=== PATIENT | female | born 1935 | race African-American/Black ===

== ENCOUNTER 2017-04-05 17:07 | Inpatient (IN) ==
[2017-04-05] MEDS ORDERED: Ipratropium/Albuterol Neb 3 ML IH ONE (17:11)
[2017-04-05 17:28] LABS: Basophils % 0.7 %; Eosinophils # 0.3 K/mcL (0.0-0.6); Eosinophils % 5.4 %; Hematocrit 45.3 % (35.3-44.9); Hemoglobin 15.1 g/dL (11.5-15.4); Immature Granulocytes % 0.2 % (0-4); Lymphocytes % 32.6 %; Mean Corpuscular HGB Conc 33.3 g/dL (31.6-35.5); Mean Corpuscular Hemoglobin 31.2 pg (28.0-33.3); Mean Corpuscular Volume 93.6 fL (83.0-100.0); Mean Platelet Volume 9.4 fL (9.4-12.4); Monocytes # 0.5 K/mcL (0.0-1.3); Neutrophils # 3.3 K/mcL (1.6-8.9); Platelet Count 239 K/mcL (140-400); Red Blood Count 4.84 M/mcL (3.82-4.97); Red Cell Distribution Width 13.2 % (11.5-14.5); Segmented Neutrophils % 53.1 %
[2017-04-05 17:33] LABS: INR 1.1; Prothrombin Time 12.3 Seconds (9.4-12.1)
[2017-04-05 17:35] LABS: Activated Partial Thrombo Time 36.3 Seconds (26.0-36.0)
--- NOTE | 2017-04-05 17:37 | Emergency Department Note ---
Disposition Clinical Impression: Acute exacerbation of chronic obstructive airways disease Disposition: Admitted As Inpatient Condition: Fair Time of Disposition: 18:46 SOB HPI - General Chief Complaint: ED Shortness of Breath/Dyspnea Stated Complaint: SOB Time Seen by Provider: 04/05/17 17:10 Source: patient, EMS Limitations: no limitations Nursing Notes Reviewed: Yes Vital Signs Reviewed: Yes - History of Present Illness Mrs. Angulo, a 81-year-old female, presents from home via EMS for evaluation of dyspnea. Onset last night and progressive. Patient has a history of COPD with home albuterol nebulizer; no supplemental oxygen at home. She denies any other associated symptoms. PMH: Hypertension, hyperlipidemia, GERD, chronic pain, CAD with ACS status post DE with stent, CKD ROS: Positive: As above Negative: Fever, chills, nausea, vomiting, chest pain, palpitations, abdominal pain, unusual swelling in her extremities - Related Data Home Medications Medication Instructions Recorded Confirmed ALPRAZolam [Xanax 0.5 MG Tablet] 0.5 mg PO BID PRN 10/15/15 10/15/15 Atorvastatin [Lipitor] 40 mg PO HS 10/15/15 10/15/15 Carvedilol [Coreg] 12.5 mg PO BID 10/15/15 10/15/15 Cholecalciferol (D-3) [Vitamin D] 1,000 unit PO BID 10/15/15 10/15/15 Clopidogrel [Plavix] 75 mg PO DAILY 10/15/15 10/15/15 Escitalopram [Lexapro] 10 mg PO DAILY 10/15/15 10/15/15 Furosemide [Lasix] 20 mg PO DAILY 10/15/15 10/15/15 Gabapentin [Neurontin] 300 mg PO BID 10/15/15 10/15/15 HYDROcodone/Acet 5/325 mg [[place] 1 tab PO BID PRN 10/15/15 10/15/15 5-325 mg] Isosorbide MONOnitrate (24 HR) 30 mg PO DAILY 10/15/15 10/15/15 [Imdur] Lisinopril [Zestril] 20 mg PO DAILY 10/15/15 10/15/15 Ranitidine HCl [Heartburn Relief] 150 mg PO DAILY 10/15/15 10/15/15 amLODIPine [Norvasc] 5 mg PO DAILY 10/15/15 10/15/15 Previous Rx's Medication Instructions Recorded Albuterol Neb [Proventil Neb] 2.5 mg IH Q4HR #30 vial.neb 06/27/16 Azithromycin [Zithromax] 250 mg PO DAILY #6 tablet 06/27/16 predniSONE [PredniSONE] 60 mg PO DAILY 5 Days tablet 06/27/16 Allergies Allergy/AdvReac Type Severity Reaction Status Date / Time Benzonatate Allergy Confusion Verified 04/05/17 17:09 [From Tessalon Perljose daniel] guaifenesin [From Mucinex] Allergy Itching Verified 04/05/17 17:09 Iodinated Contrast- Oral and Allergy See Verified 04/05/17 17:09 IV Dye Comments [Iodinated Contrast Media - IV Dye] codeine AdvReac Itching Verified 04/05/17 17:09 All systems ED: reviewed and negative except as stated. Review of Systems: As Per HPI Past Medical History - Past Medical History Medical history: Reports: coronary artery disease, hyperlipidemia, hypertension , myocardial infarction Psychiatric history: Reports: no psych history - Social History Smoking Status: Current every day smoker Smokeless Tobacco Status: No Alcohol use: Reports: none Drug use: Reports: none Physical Exam Vital Signs Reviewed General: Patient is alert, oriented, and in acute respiratory distress-tachypnea , accessory muscle usage, requiring supplemental oxygen HEENT: No facial asymmetry. Head is normocephalic and atraumatic. Oral mucosa moist. Trachea midline. Cardiovascular: Heart regular rate and rhythm without clicks, rubs, gallops, or murmurs. No JVD. PMI nondisplaced. Bilateral radial pulses 2/4 equal. Respiratory: Symmetric chest rise with poor respiratory effort. Prolonged expiratory phase. Bilateral breath sounds are diminished with substantial diffuse wheezing; no crackles or rhonchi. Abdomen: Bowel sounds present normoactive x-4 quadrants. Abdomen is soft, nondistended, and nontender. Neuro: GCS 15. Skin: Warm, dry, intact. Psych: Patient's affect is appropriate for situation. - General Limitations: no limitations General appearance: alert, in distress Course Course Narrative: Patient presents in acute rest 3 distress. Lung sounds have diffuse wheezes without crackles or rhonchi. She received 125 Solu-Medrol in route by EMS. She received a single DuoNeb treatment in route by EMS. Patient's breathing improved substantially after an additional 3 treatments of DuoNeb's. Chest x-ray does not show any focal atelectasis. BNP not markedly elevated. Patient does not have home oxygen however she is a foreign 2 L after nebulizer treatment. She is in agreement to admission for continued respiratory support. No clinical suspicion at this time for pneumonia; no need for empiric antibiotics at this time. Next I discussed the patient with the admitting hospitalist, Dr. Mcgill, who agrees to accept the patient for continued evaluation and management. Chest X-Ray 04/05/17 17:11 IMPRESSION: Stable portable study. D/ / Michelle Corado Cha, MD / Michelle Corado Cha, MD Interpreting Provider: Michelle Corado Cha, MD Vital Signs Temperature 97.9 F 04/05/17 17:11 Pulse Rate 71 04/05/17 17:11 Respiratory Rate 20 04/05/17 17:11 Blood Pressure 169/94 04/05/17 17:11 O2 Sat by Pulse Oximetry 99 04/05/17 17:11 Temperature 97.9 F 04/05/17 17:11 Pulse Rate 87 04/05/17 18:45 Respiratory Rate 14 04/05/17 18:45 Blood Pressure 131/67 04/05/17 18:45 O2 Sat by Pulse Oximetry 98 04/05/17 18:45 Oxygen Delivery Oxygen Delivery Nasal Cannula Shortness of Breath/Dyspnea - Lab Data Lab results reviewed: Yes I reviewed the patient's lab results. Result diagrams: 04/05/17 17:20 04/05/17 17:20 Lab Results 04/05/17 04/05/17 04/05/17 Range/Units 17:20 17:20 17:20 WBC 6.1 (4.3-11.1) K/mcL RBC 4.84 (3.82-4.97) M/mcL Hgb 15.1 (11.5-15.4) g/dL Hct 45.3 H (35.3-44.9) % MCV 93.6 (83.0-100.0) fL MCH 31.2 (28.0-33.3) pg MCHC 33.3 (31.6-35.5) g/dL RDW 13.2 (11.5-14.5) % Plt Count 239 (140-400) K/mcL MPV 9.4 (9.4-12.4) fL Immature Gran % 0.2 (0-4) % Seg Neutrophils % 53.1 % Lymphocytes % 32.6 % Monocytes % 8.0 % Eosinophils % 5.4 % Basophils % 0.7 % Neutrophils # 3.3 (1.6-8.9) K/mcL Lymphocytes # 2.0 (0.6-4.6) K/mcL Monocytes # 0.5 (0.0-1.3) K/mcL Eosinophils # 0.3 (0.0-0.6) K/mcL Basophils # 0.0 (0.0-0.2) K/mcL PT 12.3 H (9.4-12.1) Seconds INR 1.1 APTT 36.3 H (26.0-36.0) Seconds Sodium 139 (136-145) mEq/L Potassium 4.3 (3.5-4.5) mEq/L Chloride 103 (98-109) mEq/L Carbon Dioxide 26 (19-29) mEq/L BUN 16 (7-20) mg/dL Creatinine 1.02 (0.57-1.11) mg/dL Est GFR ( Amer) > 60 (> 60) Est GFR (Non-Af Amer) 52 L (> 60) BUN/Creatinine Ratio 16 (6-26) Glucose 111 H (70-99) mg/dL Calculated Osmolality 290 (280-300) Lactic Acid (0.5-2.2) mmol/L Calcium 10.8 (8.6-10.8) mg/dL Troponin I (0-0.03) ng/mL B-Natriuretic Peptide (0-100) pg/mL 04/05/17 04/05/17 04/05/17 Range/Units 17:20 17:20 17:20 WBC (4.3-11.1) K/mcL RBC (3.82-4.97) M/mcL Hgb (11.5-15.4) g/dL Hct (35.3-44.9) % MCV (83.0-100.0) fL MCH (28.0-33.3) pg MCHC (31.6-35.5) g/dL RDW (11.5-14.5) % Plt Count (140-400) K/mcL MPV (9.4-12.4) fL Immature Gran % (0-4) % Seg Neutrophils % % Lymphocytes % % Monocytes % % Eosinophils % % Basophils % % Neutrophils # (1.6-8.9) K/mcL Lymphocytes # (0.6-4.6) K/mcL Monocytes # (0.0-1.3) K/mcL Eosinophils # (0.0-0.6) K/mcL Basophils # (0.0-0.2) K/mcL PT (9.4-12.1) Seconds INR APTT (26.0-36.0) Seconds Sodium (136-145) mEq/L Potassium (3.5-4.5) mEq/L Chloride (98-109) mEq/L Carbon Dioxide (19-29) mEq/L BUN (7-20) mg/dL Creatinine (0.57-1.11) mg/dL Est GFR ( Amer) (> 60) Est GFR (Non-Af Amer) (> 60) BUN/Creatinine Ratio (6-26) Glucose (70-99) mg/dL Calculated Osmolality (280-300) Lactic Acid 0.7 (0.5-2.2) mmol/L Calcium (8.6-10.8) mg/dL Troponin I 0.01 (0-0.03) ng/mL B-Natriuretic Peptide 120 H (0-100) pg/mL - Radiology Data Radiology results reviewed: Yes I reviewed the patient's radiology results. - EKG Data EKG attestation: Yes I reviewed and interpreted this EKG. EKG results narrative: EKG dated 04/05/17 at 17:13 interpreted as sinus rhythm with a rate of 89. Normal intervals with UT 184, QRS 138, QT/QTC 370/417. Left axis. Left bundle branch block which is appropriately discordant. Compared to previous EKG dated 06/27/2016 showing no acute ischemic changes in comparison. Critical Care Time Critical Care Time: Yes Total Critical Care Time: 35 Attestation: Care time 35 minutes. Attestation Statement - Attestation Attestation: Patient was seen with resident physician. I reviewed the history, physical, assessment and plan, and agree with the findings. I also personally evaluated this patient and had [id number] time with this patient. 81-year-old female presents to the emergency department with a chief complaint of shortness of breath. Patient has a history of COPD. Since last night she has had a difficult time breathing. She is a smoker. She also has some discomfort in her back. This is associated with increasing cough which again has been over the last 24-48 hours. She denies fevers or chills. No chest pain. On exam vital signs are stable. ENT is unremarkable. Heart mild tachycardia regular rhythm. Lungs patient has increased work of breathing with diffuse wheezing throughout the lung exam. Relatively poor air exchange. There can be heard in all lung poe however. Abdomen is soft nontender. Extremities unremarkable. Neurologically the patient is intact. ED course we will do a course of aggressive breathing treatments. She received steroids via EMS. X-ray revealed no acute abnormalities. EKG shows left bundle branch block which is slightly changed in terms of magnitude of the QRS complex in the last one. Troponin was negative other labs are essentially unremarkable. Patient will be admitted to the hospital for COPD exacerbation be the hospitalist service. She was improved through her stay in the emergency department but still with increased work of breathing. Agree with resident physician assessment and plan. Critical care time 35 minutes.
[2017-04-05 17:40] LABS: BUN/Creatinine Ratio 16 (6-26); Blood Urea Nitrogen 16 mg/dL (7-20); Calcium 10.8 mg/dL (8.6-10.8); Carbon Dioxide 26 mEq/L (19-29); Chloride 103 mEq/L (98-109); Glucose 111 mg/dL (70-99); Osmolality,Calculated 290 (280-300); Potassium 4.3 mEq/L (3.5-4.5); Sodium 139 mEq/L (136-145); eGFR For African Americans > 60 (> 60); eGFR For Non-African Americans 52 (> 60)
[2017-04-05] MEDS ORDERED: Naloxone 0.4 MG/ML INJ IVP PRN (19:50)
[2017-04-05] MEDS ORDERED: Acetaminophen 325 MG TABLET PO PRN (19:50)
--- NOTE | 2017-04-05 20:52 | Internal Med History&Physical ---
Date of Encounter: 04/05/17 Time of Encounter: 20:49 Assessment and Plan (1) Acute exacerbation of chronic obstructive airways disease Current visit: Yes Status: Acute Patient has been experiencing increasing shortness of breath despite the use of CPAP and albuterol treatments. We will continue with oxygen titrated to maintain SPO2 greater than 92% Continue with bronchodilators Steroids to taper (2) Tobacco abuse Current visit: No Status: Chronic 1 patient smokes half pack a day. Since increasing shortness of breath she has not been able to smoke. Encouraged patient to stop smoking. Nicotine patch (3) HTN (hypertension) Current visit: No Status: Chronic Presently stable we will continue with home medications of amlodipine and Lasix Low-sodium diet Qualifiers: Hypertension type: essential hypertension Qualified Code(s): I10 - Essential (primary) hypertension Internal Medicine - H&P: HPI Chief complaint: sob Admitted From: Emergency Dept Plans for Post Hospital Care: Home History of present illness: Ms. Angulo is a 81 year old female with past medical history of COPD CK D stage II hypertension hyperlipidemia GERD and CAD with stent placement. Patient has been experiencing increasing shortness of breath which is worse on exertion since yesterday. She has CPAP at night and has been using it during the day with some relief. She has been using albuterol nebulizer with little relief. She denies any cough fever chills or chest pain. She presented to the ER with the above complaints. According to ER records lab work was unremarkable remarkable chest x-ray with no acute process. She was wheezing on presentation and was given Solu-Medrol and bronchodilators. She has been admitted for further workup and evaluation. Presently patient does have scattered wheezes throughout. She does not appear to be in respiratory distress and denies any chest pain She is hemodynamically stable I reviewed this case with Dr. Preciado who agrees with plan. Past Med Surg Social Fam HX - Past Medical History Medical history: COPD, coronary artery disease, hyperlipidemia, hypertension, myocardial infarction Psychiatric history: no psych history - Past Surgical History Surgical History: appendectomy, cholecystectomy, hysterectomy - Social History Smoking Status: Current every day smoker Packs per day: 1 Smokeless Tobacco Status: No Alcohol use: none Drug use: none - Family History Father Living Status: Mother Living Status: Internal Medicine - H&P: Meds ALPRAZolam [Xanax 0.5 MG Tablet] 0.5 mg PO BID PRN 10/15/15 [History] Atorvastatin [Lipitor] 40 mg PO HS 10/15/15 [History] Carvedilol [Coreg] 12.5 mg PO BID 10/15/15 [History] Cholecalciferol (D-3) [Vitamin D] 1,000 unit PO BID 10/15/15 [History] Clopidogrel [Plavix] 75 mg PO DAILY 10/15/15 [History] Escitalopram [Lexapro] 10 mg PO DAILY 10/15/15 [History] Furosemide [Lasix] 20 mg PO DAILY 10/15/15 [History] Gabapentin [Neurontin] 300 mg PO BID 10/15/15 [History] HYDROcodone/Acet 5/325 mg [[place] 5-325 mg] 1 tab PO BID PRN 10/15/15 [History] Isosorbide MONOnitrate (24 HR) [Imdur] 30 mg PO DAILY 10/15/15 [History] Lisinopril [Zestril] 20 mg PO DAILY 10/15/15 [History] Ranitidine HCl [Heartburn Relief] 150 mg PO DAILY 10/15/15 [History] amLODIPine [Norvasc] 5 mg PO DAILY 10/15/15 [History] Albuterol Neb [Proventil Neb] 2.5 mg IH Q4HR #30 vial.neb 06/27/16 [Rx] Azithromycin [Zithromax] 250 mg PO DAILY #6 tablet 06/27/16 [Rx] predniSONE [PredniSONE] 60 mg PO DAILY 5 Days tablet 06/27/16 [Rx] 3 Allergy/AdvReac Type Severity Reaction Status Date / Time Benzonatate Allergy Confusion Verified 04/05/17 17:09 [From Tesmatt Montejo] guaifenesin [From Mucinex] Allergy Itching Verified 04/05/17 17:09 Iodinated Contrast- Oral and Allergy See Verified 04/05/17 17:09 IV Dye Comments [Iodinated Contrast Media - IV Dye] codeine AdvReac Itching Verified 04/05/17 17:09 All Systems PM: A 10-system review of systems was performed and is negative for pertinent findings except as documented above in the HPI. - Constitutional Constitutional: no chills, no fever(s), no night sweats - EENT Eyes: no change in vision, no discharge, no pain, no photophobia Nose, mouth and throat: no dysphagia, no nasal discharge, no neck pain, no sore throat - Cardiovascular Cardiovascular ROS IM: no chest pain, no diaphoresis, no dyspnea, no lightheadedness, no palpitations, no syncope - Respiratory Respiratory: dyspnea, dyspnea on exertion, no cough, no wheezing, no excessive phlegm production - Gastrointestinal Gastrointestinal: no abdominal pain, no diarrhea, no hematemesis, no hematochezia, no melena, no nausea, no vomiting - Genitourinary Genitourinary: no change in urinary stream, no dysuria, no flank pain, no hematuria - Musculoskeletal Musculoskeletal ROS IM: no numbness, no tingling - Integumentary Integumentary IM: no rash, no unusual bruising - Neurological Neurological ROS: no confusion, no convulsions, no focal weakness, no numbness, no tingling, no tremor(s) - Hematologic/Lymphatic Hematologic/Lymphatic: no easy bruising - Constitutional Vitals: Temp Pulse Resp BP Pulse Ox 98.0 F 65 19 114/68 94 04/05/17 19:32 04/05/17 19:32 04/05/17 19:32 04/05/17 19:32 04/05/17 19:32 General appearance: Present: A&O X 3 - Head Head exam: Present: atraumatic, normocephalic - Eye Eye exam: Present: PERRL, conjuntiva pink, sclera anicteric Pupils: Present: PERRL - Neck Neck exam general surgery: Present: supple, trachea midline. Absent: lymphadenopathy - Respiratory Respiratory exam: Present: wheezes. Absent: accessory muscle use, rales, rhonchi - Cardiovascular Cardiovascular exam: Present: RRR, +S1, +S2. Absent: diastolic murmur, gallop, rubs, systolic murmur - GI/Abdominal GI/Abdominal exam: Present: normal bowel sounds, soft, no peritoneal signs. Absent: distended, tenderness - Extremities Exam Extremities exam: Present: warm, radial pulses palpable and symmetrical. Absent : calf tenderness, cyanotic, pedal edema - Neurological Exam Neurological exam: Present: CN II-XII intact, oriented X3, no focal deficits. Absent: pronater drift, facial droop, speech deficit - Skin Skin exam: Present: dry, intact Internal Med - H&P Results - Labs CBC & Chem 7: 04/05/17 17:20 04/05/17 17:20 - EKG Data EKG shows normal: sinus rhythm - EKG Data Prior EKG available for review: yes When compared to previous EKG: there is no significant change - Diagnostic Studies Other Images Additional comments: Chest X-Ray 04/05/17 17:11 IMPRESSION: Stable portable study. D/ / Michelle Corado Cha, MD / Michelle Corado Cha, MD Interpreting Provider: Michelle Corado Cha, MD
--- NOTE | 2017-04-05 21:04 | Event Note ---
Date of Encounter: 04/05/17 Time of Encounter: 21:03 patient seen and examined with nurse practitioner. Agree with assessment and plan
[2017-04-05] MEDS: methylPREDNISolone 125 MG/2 ML VIAL IVP SCH (23:20)
[2017-04-05] MEDS: Azithromycin 500 MG in D5% in Water 250 ML IVPB SCH (23:21)
[2017-04-05] MEDS: Ipratropium/Albuterol Neb 3 ML IH SCH (23:45)
[2017-04-05] MEDS: Ondansetron 4 MG/2 ML VIAL IVP PRN (23:48)
[2017-04-06 04:05] LABS: Basophils % 0.3 %; Immature Granulocytes % 0.4 % (0-4); Lymphocytes # 0.6 K/mcL (0.6-4.6); Lymphocytes % 7.9 %; Mean Corpuscular Hemoglobin 30.8 pg (28.0-33.3); Mean Corpuscular Volume 93.2 fL (83.0-100.0); Mean Platelet Volume 9.9 fL (9.4-12.4); Monocytes # 0.1 K/mcL (0.0-1.3); Monocytes % 1.1 %; Neutrophils # 6.6 K/mcL (1.6-8.9); Platelet Count 219 K/mcL (140-400); Red Blood Count 4.29 M/mcL (3.82-4.97); Segmented Neutrophils % 90.3 %
[2017-04-06 04:06] LABS: Hemoglobin 13.2 g/dL (11.5-15.4)
[2017-04-06 04:18] LABS: Calcium 10.8 mg/dL (8.6-10.8); Potassium 4.1 mEq/L (3.5-4.5)
[2017-04-06] MEDS: Ipratropium/Albuterol Neb 3 ML IH SCH ×4 (04:34→23:36)
[2017-04-06] MEDS: methylPREDNISolone 125 MG/2 ML VIAL IVP SCH ×3 (05:27→17:54)
[2017-04-06] MEDS ORDERED: *HR* Enoxaparin 40 MG/0.4 ML SYRINGE SQ SCH (06:00)
[2017-04-06] MEDS: amLODIPine 5 MG TABLET PO SCH (10:14)
[2017-04-06] MEDS: Famotidine 20 MG TABLET PO SCH (10:14)
[2017-04-06] MEDS: Cholecalciferol (D-3) 1,000 UNIT TABLET PO SCH ×2 (10:14→20:55)
[2017-04-06] MEDS: Gabapentin 100 MG CAPSULE PO SCH ×2 (10:14→20:55)
[2017-04-06] MEDS: Nicotine 7 MG PATCH.TD24 TD SCH (10:16)
[2017-04-06] MEDS: Isosorbide MONOnitrate (24 HR) 30 MG TAB.ER.24H PO SCH (10:16)
[2017-04-06] MEDS: Lisinopril 20 MG TABLET PO SCH (10:16)
[2017-04-06] MEDS: Furosemide 20 MG TABLET PO SCH (10:16)
--- NOTE | 2017-04-06 11:14 | Internal Med Progress Note ---
<Armando Herrera - Last Filed: 04/06/17 11:11> Date of Encounter: 04/06/17 Time of Encounter: 11:11 - Assessment and plan (1) Acute exacerbation of chronic obstructive airways disease Current Visit: Yes Status: Acute Assessment and plan: Dyspnea and dry non-productive cough for 2-3 days. Wheezes on exam. CXR: Hyperinflation. No focal consolidation, effusion, nor edema Reports using CPAP and albuterol at home Continue azithromycin, steroids, bronchodilators, O2 supplementation (2) Tobacco abuse Current Visit: No Status: Chronic Assessment and plan: Has not been smoking recently due to shortness of breath. Continue nicotine patch (3) HTN (hypertension) Current Visit: No Status: Chronic Assessment and plan: More controlled overnight and this morning. Continue medications. Qualifiers: Hypertension type: essential hypertension Qualified Code(s): I10 - Essential (primary) hypertension - Subjective Interval history: Pt sitting up in bed. She reports that she is continuing to have dyspnea and non -productive cough. Her symptoms started 2-3 days ago. She reports that she has been under a lot of stress lately. She denies fevers, chills, syncope, chest pain, N/V/D/C, dysuria, or leg pain/edema. - Constitutional Vitals: Temp Pulse Resp BP Pulse Ox 97.9 F 89 15 123/65 96 04/06/17 07:09 04/06/17 07:09 04/06/17 07:09 04/06/17 07:09 04/06/17 07:09 General appearance: Present: A&O X 3, no acute distress - Head Head exam: Present: atraumatic, normocephalic - Eye Eye exam: Present: conjuntiva pink, sclera anicteric - Neck Neck exam general surgery: Present: supple, trachea midline. Absent: lymphadenopathy - Respiratory Respiratory exam: Present: wheezes. Absent: accessory muscle use, rales, rhonchi - Cardiovascular Cardiovascular exam: Present: RRR, +S1, +S2. Absent: diastolic murmur, systolic murmur - GI/Abdominal GI/Abdominal exam: Present: normal bowel sounds, soft, no peritoneal signs. Absent: distended, tenderness - Extremities Exam Extremities exam: Present: warm, radial pulses palpable and symmetrical. Absent : calf tenderness, cyanotic, pedal edema - Neurological Exam Neurological exam: Present: CN II-XII intact, oriented X3, no focal deficits. Absent: facial droop, speech deficit - Skin Skin exam: Present: dry, intact Internal Medicine: Result - Labs CBC & Chem 7: 04/06/17 03:40 04/06/17 03:40 Labs: Short CBC 04/06/17 Range/Units 03:40 WBC 7.4 (4.3-11.1) K/mcL Hgb 13.2 D (11.5-15.4) g/dL Hct 40.0 (35.3-44.9) % Plt Count 219 (140-400) K/mcL Neutrophils # 6.6 (1.6-8.9) K/mcL [facility] 04/06/17 03:40 Sodium 136 Potassium 4.1 Chloride 104 Carbon Dioxide 25 BUN 19 Creatinine 1.21 H Glucose 131 H Calcium 10.8 - ABG Interpretation ABG results: PT/INR, D-dimer PT 12.3 Seconds (9.4-12.1) H 04/05/17 17:20 Consult Discharge Plan - Plan Referrals: Pranav Harris DO [Primary Care Provider] - <Christian Rodríguez - Last Filed: 04/06/17 15:18> Date of Encounter: 04/06/17 - Constitutional Vitals: Temp Pulse Resp BP Pulse Ox 98.2 F 86 15 106/65 96 04/06/17 15:03 04/06/17 15:03 04/06/17 15:03 04/06/17 15:03 04/06/17 15:03 Internal Medicine: Result - Labs CBC & Chem 7: 04/06/17 03:40 04/06/17 03:40 Labs: Short CBC 04/06/17 Range/Units 03:40 WBC 7.4 (4.3-11.1) K/mcL Hgb 13.2 D (11.5-15.4) g/dL Hct 40.0 (35.3-44.9) % Plt Count 219 (140-400) K/mcL Neutrophils # 6.6 (1.6-8.9) K/mcL BMP 04/06/17 03:40 Sodium 136 Potassium 4.1 Chloride 104 Carbon Dioxide 25 BUN 19 Creatinine 1.21 H Glucose 131 H Calcium 10.8 - ABG Interpretation ABG results: PT/INR, D-dimer PT 12.3 Seconds (9.4-12.1) H 04/05/17 17:20 - Attending Attestation I have seen and examined the patient independently. I have discussed with resident physician Dr. Herrera regarding the management plan. Agree with the documentation. Patient came for COPD exacerbation. Still wheezing. We will continue antibiotic, steroid, and bronchodilator. Continue supportive treatment.
[2017-04-06] MEDS: Albuterol 2.5 MG/3 ML NEBULIZER IH PRN (13:19)
--- NOTE | 2017-04-06 18:09 | Electrocardiograph Report ---
[place] [id number] Test Date: 2017-04-05 Pat Name: Juliet Angulo Department: 103 Room: 2NE25 Gender: F Ware Server: KATINA : [id number] Requested By: Carlton Olivares Order Number: [id number] Reading MD: Roque Ratliff MD Measurements Intervals [place] Rate: 89 P: 84 FL: 184 QRS: -41 QRSD: 138 T: 121 QT: 370 QTc: 417 Interpretive Statements SINUS RHYTHM MARKED LEFT AXIS DEVIATION LEFT BUNDLE BRANCH BLOCK Electronically Signed On 04-06-2017 18:07:31 EST by Roque Ratliff MD
[2017-04-06] MEDS: Azithromycin 500 MG in D5% in Water 250 ML IVPB SCH (22:04)
[2017-04-06] MEDS: Ondansetron 4 MG/2 ML VIAL IVP PRN (23:17)
[2017-04-07] MEDS: methylPREDNISolone 125 MG/2 ML VIAL IVP SCH ×5 (00:33→23:33)
[2017-04-07 04:33] LABS: Basophils % 0.1 %; Hematocrit 37.4 % (35.3-44.9); Hemoglobin 12.7 g/dL (11.5-15.4); Immature Granulocytes % 1.1 % (0-4); Lymphocytes # 0.7 K/mcL (0.6-4.6); Lymphocytes % 3.4 %; Mean Corpuscular Hemoglobin 31.4 pg (28.0-33.3); Mean Corpuscular Volume 92.3 fL (83.0-100.0); Mean Platelet Volume 9.9 fL (9.4-12.4); Monocytes # 0.5 K/mcL (0.0-1.3); Monocytes % 2.4 %; Neutrophils # 18.7 K/mcL (1.6-8.9); Platelet Count 207 K/mcL (140-400); Red Blood Count 4.05 M/mcL (3.82-4.97); Red Cell Distribution Width 13.2 % (11.5-14.5)
[2017-04-07] MEDS: Ipratropium/Albuterol Neb 3 ML IH SCH ×4 (04:46→22:44)
[2017-04-07 04:48] LABS: BUN/Creatinine Ratio 25 (6-26); Blood Urea Nitrogen 26 mg/dL (7-20); Calcium 10.2 mg/dL (8.6-10.8); Carbon Dioxide 23 mEq/L (19-29); Chloride 104 mEq/L (98-109); Glucose 133 mg/dL (70-99); Osmolality,Calculated 287 (280-300); Potassium 4.5 mEq/L (3.5-4.5); Sodium 135 mEq/L (136-145); eGFR For African Americans > 60 (> 60); eGFR For Non-African Americans 52 (> 60)
[2017-04-07] MEDS: *HR* Heparin 5,000 UNIT/ML VIAL SQ SCH ×2 (06:02→17:34)
[2017-04-07] MEDS: Nicotine 7 MG PATCH.TD24 TD SCH (09:15)
[2017-04-07] MEDS: Famotidine 20 MG TABLET PO SCH (09:16)
[2017-04-07] MEDS: Gabapentin 100 MG CAPSULE PO SCH (09:16)
[2017-04-07] MEDS: amLODIPine 5 MG TABLET PO SCH (09:16)
[2017-04-07] MEDS: Isosorbide MONOnitrate (24 HR) 30 MG TAB.ER.24H PO SCH (09:17)
[2017-04-07] MEDS: Cholecalciferol (D-3) 1,000 UNIT TABLET PO SCH (09:17)
[2017-04-07] MEDS: Lisinopril 20 MG TABLET PO SCH (09:18)
[2017-04-07] MEDS: Furosemide 20 MG TABLET PO SCH (09:18)
[2017-04-07] MEDS: *HR* HYDROcodone/Acet 5/325 mg TABLET PO PRN (09:20)
--- NOTE | 2017-04-07 09:41 | Internal Med Progress Note ---
<Jeremy Mckinley - Last Filed: 04/07/17 12:41> Date of Encounter: 04/07/17 Time of Encounter: 09:25 - Assessment and plan (1) Acute exacerbation of chronic obstructive airways disease Current Visit: Yes Status: Acute Assessment and plan: Dyspnea and dry non-productive cough for 2-3 days prior to admission. Wheezes still present on exam. CXR: Hyperinflation. No focal consolidation, effusion, nor edema Reports using CPAP and albuterol at home Continue azithromycin day 3 Currently on Solu-Medrol 60 mg every 6 hours Wheezes still present on exam we will continue current dose Breathing treatments with duo nebs Supplemental O2 as needed, wean as tolerated (2) HTN (hypertension) Current Visit: No Status: Chronic Assessment and plan: Blood pressure has been stable for the last 36 hours Continue home medications. Qualifiers: Hypertension type: essential hypertension Qualified Code(s): I10 - Essential (primary) hypertension (3) Tobacco abuse Current Visit: No Status: Chronic Assessment and plan: Patient reports having 47 year smoking history of 0.5 ppd. Has not been smoking recently due to shortness of breath. Patient does describe interest in smoking cessation Continue nicotine patch Patient will require nicotine patches upon discharge (4) DVT prophylaxis Current Visit: Yes Status: Acute Assessment and plan: 5000 units heparin subcutaneous twice a day - Subjective Interval history: Patient reports she is doing better than she was previously, the still says she is having some difficulty. She reports having coughing fits which is coughing constantly, nonproductive, but causing her to have some chest pain with the coughing (feels musculoskeletal). She reports having some continued shortness of breath, but this is improved. She denies having any fever/chills, denies other chest pain. - Constitutional Vitals: Temp Pulse Resp BP Pulse Ox 97.5 F L 64 16 137/75 94 04/07/17 09:21 04/07/17 09:21 04/07/17 09:21 04/07/17 09:21 04/07/17 09:21 General appearance: Present: A&O X 3, no acute distress Exam: General: Cooperative, pleasant, no acute distress, alert and oriented 3, answers questions appropriately HEENT: Normocephalic, atraumatic, neck supple, trachea midline, Conjunctiva pink , sclera anicteric Respiratory: No accessory muscle usage, diffuse wheezing throughout both lung poe and auscultation Cardiovascular: Regular rate and rhythm, S1 and S2 present, no murmurs/rubs/ gallops/clicks appreciated Extremities: No calf tenderness, no pedal edema appreciated, warm, lower extremity pulses palpable and symmetrical Neurological: Alert and oriented 3, no facial droop, no focal deficits Internal Medicine: Result - Labs CBC & Chem 7: 04/07/17 03:51 04/07/17 03:51 Labs: Short CBC 04/07/17 Range/Units 03:51 WBC 20.1 H D (4.3-11.1) K/mcL Hgb 12.7 (11.5-15.4) g/dL Hct 37.4 (35.3-44.9) % Plt Count 207 (140-400) K/mcL Neutrophils # 18.7 H (1.6-8.9) K/mcL BMP 04/07/17 03:51 Sodium 135 L Potassium 4.5 Chloride 104 Carbon Dioxide 23 BUN 26 H Creatinine 1.02 Glucose 133 H Calcium 10.2 - ABG Interpretation ABG results: PT/INR, D-dimer PT 12.3 Seconds (9.4-12.1) H 04/05/17 17:20 Consult Discharge Plan - Plan Referrals: Pranav Harris DO [Primary Care Provider] - <Christian Rodríguez - Last Filed: 04/07/17 17:46> Date of Encounter: 04/07/17 - Constitutional Vitals: Temp Pulse Resp BP Pulse Ox 97.8 F 84 16 115/58 95 04/07/17 15:17 04/07/17 15:17 04/07/17 15:47 04/07/17 15:17 04/07/17 17:29 Internal Medicine: Result - Labs CBC & Chem 7: 04/07/17 03:51 04/07/17 03:51 Labs: Short CBC 04/07/17 Range/Units 03:51 WBC 20.1 H D (4.3-11.1) K/mcL Hgb 12.7 (11.5-15.4) g/dL Hct 37.4 (35.3-44.9) % Plt Count 207 (140-400) K/mcL Neutrophils # 18.7 H (1.6-8.9) K/mcL BMP 04/07/17 03:51 Sodium 135 L Potassium 4.5 Chloride 104 Carbon Dioxide 23 BUN 26 H Creatinine 1.02 Glucose 133 H Calcium 10.2 - ABG Interpretation ABG results: PT/INR, D-dimer PT 12.3 Seconds (9.4-12.1) H 04/05/17 17:20 - Attending Attestation I have seen and examined pt independently. I have discussed with resident physician Dr Mckinley regarding the management plan. Agree with the documentation. Pt feels slightly less SOB. Still wheezing on auscultation. Cont steroid, abx, and nebulizer for COPD exacerbation.
[2017-04-07] MEDS: Azithromycin 500 MG in D5% in Water 250 ML IVPB SCH (20:15)
[2017-04-07] MEDS: ALPRAZolam 0.5 MG TABLET PO PRN (20:16)
[2017-04-08] MEDS: Ipratropium/Albuterol Neb 3 ML IH SCH ×4 (04:37→23:10)
[2017-04-08] MEDS: *HR* Heparin 5,000 UNIT/ML VIAL SQ SCH ×2 (04:57→18:01)
[2017-04-08] MEDS: methylPREDNISolone 125 MG/2 ML VIAL IVP SCH ×3 (04:57→18:00)
[2017-04-08] MEDS: Cholecalciferol (D-3) 1,000 UNIT TABLET PO SCH (08:28)
[2017-04-08] MEDS: Nicotine 7 MG PATCH.TD24 TD SCH (08:28)
[2017-04-08] MEDS: Isosorbide MONOnitrate (24 HR) 30 MG TAB.ER.24H PO SCH (08:29)
[2017-04-08] MEDS: amLODIPine 5 MG TABLET PO SCH (08:29)
[2017-04-08] MEDS: Lisinopril 20 MG TABLET PO SCH (08:29)
[2017-04-08] MEDS: Famotidine 20 MG TABLET PO SCH (08:29)
[2017-04-08] MEDS: Furosemide 20 MG TABLET PO SCH (08:29)
[2017-04-08] MEDS: Albuterol 2.5 MG/3 ML NEBULIZER IH PRN ×2 (08:34→21:17)
--- NOTE | 2017-04-08 10:45 | Internal Med Progress Note ---
<Jeremy Mckinley - Last Filed: 04/08/17 10:41> Date of Encounter: 04/08/17 Time of Encounter: 09:30 - Assessment and plan (1) Acute exacerbation of chronic obstructive airways disease Current Visit: Yes Status: Acute Assessment and plan: Dyspnea and dry non-productive cough for 2-3 days prior to admission. Patient reports having worsening shortness of breath today as well as feeling of something in her chest that woke him up Wheezes still present on exam. CXR: Hyperinflation. No focal consolidation, effusion, nor edema Reports using CPAP and albuterol at home Continue azithromycin day 4 Increase Solu-Medrol to 80 mg every 6 hours Wheezes still present on exam we increase dose Will add mucamyst IH Breathing treatments with duo nebs Supplemental O2 as needed, wean as tolerated (2) HTN (hypertension) Current Visit: No Status: Chronic Assessment and plan: Blood pressure has been stable Continue home medications. Qualifiers: Hypertension type: essential hypertension Qualified Code(s): I10 - Essential (primary) hypertension (3) Tobacco abuse Current Visit: No Status: Chronic Assessment and plan: Patient reports having 47 year smoking history of 0.5 ppd. Has not been smoking recently due to shortness of breath. Patient does describe interest in smoking cessation Continue nicotine patch Patient will require nicotine patches upon discharge (4) DVT prophylaxis Current Visit: Yes Status: Acute Assessment and plan: 5000 units heparin subcutaneous twice a day - Subjective Interval history: Patient reports she has had some improvement of her cough since yesterday, though she does report that she has continued if not worsening shortness of breath. He denies having fever/chills. - Constitutional Vitals: Temp Pulse Resp BP Pulse Ox 97.0 F L 81 16 135/69 96 04/08/17 06:44 04/08/17 06:44 04/08/17 10:28 04/08/17 06:44 04/08/17 10:28 General appearance: Present: A&O X 3, no acute distress Exam: General: Cooperative, pleasant, no acute distress, alert and oriented 3, answers questions appropriately HEENT: Normocephalic, atraumatic, neck supple, trachea midline, Conjunctiva pink , sclera anicteric Respiratory: No accessory muscle usage, diffuse wheezing throughout both lung poe and auscultation Cardiovascular: Regular rate and rhythm, S1 and S2 present, no murmurs/rubs/ gallops/clicks appreciated Extremities: No calf tenderness, no pedal edema appreciated, warm, lower extremity pulses palpable and symmetrical Neurological: Alert and oriented 3, no facial droop, no focal deficits Internal Medicine: Result - Labs CBC & Chem 7: 04/07/17 03:51 04/07/17 03:51 - ABG Interpretation ABG results: PT/INR, D-dimer PT 12.3 Seconds (9.4-12.1) H 04/05/17 17:20 Consult Discharge Plan - Plan Referrals: Pranav Harris DO [Primary Care Provider] - <Cuauhtemoc Loving H - Last Filed: 04/08/17 17:02> Date of Encounter: 04/08/17 - Constitutional Vitals: Temp Pulse Resp BP Pulse Ox 97.7 F 81 16 126/75 98 04/08/17 15:29 04/08/17 15:29 04/08/17 16:04 04/08/17 15:29 04/08/17 16:04 Internal Medicine: Result - Labs CBC & Chem 7: 04/07/17 03:51 04/07/17 03:51 - ABG Interpretation ABG results: PT/INR, D-dimer PT 12.3 Seconds (9.4-12.1) H 04/05/17 17:20 - Attending Attestation Acute COPD exacerbation secondary to acute bacterial bronchitis Possible volume overload, give 1 dose of Lasix Chest CT I examined this patient and my medical decision-making was reviewed with the Resident Physician. I agree with the documented findings, disposition and treatment plan as described except to the extent set forth below.
[2017-04-08] MEDS: Acetylcysteine 10% 2 ML INHSOL IH SCH ×4 (11:15→23:12)
[2017-04-08] MEDS ORDERED: Furosemide 40 MG/4 ML VIAL IVP ONE (14:06)
[2017-04-08] MEDS: cefTRIAXone 1,000 MG in Water for inj. (sterile) 10 ML IVP SCH (18:36)
[2017-04-09] MEDS: methylPREDNISolone 125 MG/2 ML VIAL IVP SCH ×5 (01:51→23:46)
[2017-04-09] MEDS: Ipratropium/Albuterol Neb 3 ML IH SCH ×4 (04:52→22:09)
[2017-04-09] MEDS: Acetylcysteine 10% 2 ML INHSOL IH SCH ×6 (04:52→23:35)
[2017-04-09 05:10] LABS: Basophils % 0.1 %; Hematocrit 41.4 % (35.3-44.9); Hemoglobin 13.9 g/dL (11.5-15.4); Immature Granulocytes % 1.1 % (0-4); Lymphocytes # 0.9 K/mcL (0.6-4.6); Lymphocytes % 6.1 %; Mean Corpuscular HGB Conc 33.6 g/dL (31.6-35.5); Mean Corpuscular Volume 92.2 fL (83.0-100.0); Monocytes # 0.4 K/mcL (0.0-1.3); Monocytes % 3.1 %; Neutrophils # 12.5 K/mcL (1.6-8.9); Platelet Count 239 K/mcL (140-400); Red Blood Count 4.49 M/mcL (3.82-4.97); Red Cell Distribution Width 13.7 % (11.5-14.5); Segmented Neutrophils % 89.6 %
[2017-04-09 05:13] LABS: Calcium 10.2 mg/dL (8.6-10.8); Potassium 4.3 mEq/L (3.5-4.5)
[2017-04-09] MEDS: *HR* Heparin 5,000 UNIT/ML VIAL SQ SCH ×2 (06:48→17:06)
[2017-04-09] MEDS: cefTRIAXone 1,000 MG in Water for inj. (sterile) 10 ML IVP SCH (10:13)
[2017-04-09] MEDS: Furosemide 20 MG TABLET PO SCH (10:14)
[2017-04-09] MEDS: Famotidine 20 MG TABLET PO SCH (10:14)
[2017-04-09] MEDS: Cholecalciferol (D-3) 1,000 UNIT TABLET PO SCH (10:14)
[2017-04-09] MEDS: Lisinopril 20 MG TABLET PO SCH (10:14)
[2017-04-09] MEDS: Nicotine 7 MG PATCH.TD24 TD SCH (10:14)
[2017-04-09] MEDS: amLODIPine 5 MG TABLET PO SCH (10:14)
[2017-04-09] MEDS: Isosorbide MONOnitrate (24 HR) 30 MG TAB.ER.24H PO SCH (10:14)
--- NOTE | 2017-04-09 10:53 | Internal Med Progress Note ---
<Jeremy Mckinley - Last Filed: 04/09/17 10:57> Date of Encounter: 04/09/17 Time of Encounter: 10:25 - Assessment and plan (1) Acute exacerbation of chronic obstructive airways disease Current Visit: Yes Status: Acute Assessment and plan: Dyspnea and dry non-productive cough for 2-3 days prior to admission. Patient reports having worsening shortness of breath today as well as feeling of something in her chest that woke him up Wheezes still present on exam. CXR: Hyperinflation. No focal consolidation, effusion, nor edema Reports using CPAP and albuterol at home CT performed yesterday afternoon did not show any fluid or interstitial process. She was noted to have some mucous plugging in the lower lobes bilaterally Patient received 1 dose IV Lasix yesterday Worsened renal function today Azithromycin stopped yesterday Started ceftriaxone yesterday, day 2 today Continue Solu-Medrol at 80 mg every 6 hours Wheezes still present, but improved Will add mucamyst IH Breathing treatments with duo nebs We will continue monitor renal function with chemistry Supplemental O2 as needed, wean as tolerated (2) Abdominal pain Current Visit: Yes Status: Acute Assessment and plan: Patient developed significant abdominal pain last night Reports nausea with no vomiting, anorexia those forces herself to eat, flatus but no bowel movements Exquisite tenderness to palpation diffusely but worse in the right lower quadrant No reports of diarrhea Patient has been on antibiotics for 5 days, though doubt C. difficile without profuse diarrhea We will obtain CT of her abdomen for closer evaluation of potential colitis Qualifiers: Abdominal location: generalized Qualified Code(s): R10.84 - Generalized abdominal pain (3) HTN (hypertension) Current Visit: No Status: Chronic Assessment and plan: Blood pressure has been stable Continue home medications. Qualifiers: Hypertension type: essential hypertension Qualified Code(s): I10 - Essential (primary) hypertension (4) Tobacco abuse Current Visit: No Status: Chronic Assessment and plan: Patient reports having 47 year smoking history of 0.5 ppd. Has not been smoking recently due to shortness of breath. Patient does describe interest in smoking cessation Continue nicotine patch Patient will require nicotine patches upon discharge (5) DVT prophylaxis Current Visit: Yes Status: Acute Assessment and plan: 5000 units heparin subcutaneous twice a day - Subjective Interval history: Patient reports that her breathing has improved slightly since yesterday, she also feels like she is bringing up more mucus when she coughs. She denies fever /chills. She does state that starting last night she developed abdominal discomfort and nausea. She denies having vomited or had any bowel movements, but does states she has been continue to have flatus. - Constitutional Vitals: Temp Pulse Resp BP Pulse Ox 97.9 F 66 16 154/86 97 04/09/17 07:43 04/09/17 07:43 04/09/17 07:43 04/09/17 07:43 04/09/17 07:43 General appearance: Present: A&O X 3, no acute distress Exam: General: Cooperative, pleasant, no acute distress, alert and oriented 3, answers questions appropriately HEENT: Normocephalic, atraumatic, neck supple, trachea midline, Conjunctiva pink , sclera anicteric Respiratory: No accessory muscle usage, improved aeration of bilateral lungs, diffuse expiratory wheezing present today Cardiovascular: Regular rate and rhythm, S1 and S2 present, no murmurs/rubs/ gallops/clicks appreciated Abdominal: Hyperactive bowel sounds, exquisite tenderness to palpation diffusely but worse in right lower quadrant, rebound positive, soft Extremities: No calf tenderness, no pedal edema appreciated, warm, lower extremity pulses palpable and symmetrical Neurological: Alert and oriented 3, no facial droop, no focal deficits Internal Medicine: Result - Labs CBC & Chem 7: 04/09/17 04:38 04/09/17 04:38 Labs: Short CBC 04/09/17 Range/Units 04:38 WBC 13.9 H (4.3-11.1) K/mcL Hgb 13.9 (11.5-15.4) g/dL Hct 41.4 (35.3-44.9) % Plt Count 239 (140-400) K/mcL Neutrophils # 12.5 H (1.6-8.9) K/mcL BMP 04/09/17 04:38 Sodium 137 Potassium 4.3 Chloride 103 Carbon Dioxide 28 BUN 33 H Creatinine 1.23 H Glucose 199 H Calcium 10.2 - ABG Interpretation ABG results: PT/INR, D-dimer PT 12.3 Seconds (9.4-12.1) H 04/05/17 17:20 - Impressions Impressions Chest CT 04/08/17 16:30 IMPRESSION: Evidence of bronchial wall thickening and mucous plugging in the lower lobes bilaterally, greater on the left. Findings would suggest bronchitis/ bronchiolitis. Follow-up to resolution is necessary to ensure that there is no endobronchial lesion. Dilation of the abdominal aorta, incompletely evaluated. Recommendation below. Moderate motion degradation. RECOMMENDATIONS: Managing Abdominal Aortic Aneurysms 3.5-3.9 cm: Every 1 year. *For abdominal aortas with maximum diameter of 2.6-2.9 cm meeting criteria for AAA (>50% of proximal normal segment). Reference: J Vasc Surg. 2009 Feb;50(4 Suppl):S2-49 D/ / Bob Low MD / Bob Low MD Interpreting Provider: Bob oLw MD Consult Discharge Plan - Plan Referrals: [facility] Jefferson DO [Partnered Physician] - 04/15/17 1:30 pm <Cuauhtemoc Loving - Last Filed: 04/09/17 15:06> Date of Encounter: 04/09/17 - Constitutional Vitals: Temp Pulse Resp BP Pulse Ox 97.5 F L 72 16 133/76 94 04/09/17 11:50 04/09/17 11:50 04/09/17 11:50 04/09/17 11:50 04/09/17 11:50 Internal Medicine: Result - Labs CBC & Chem 7: 04/09/17 04:38 04/09/17 04:38 Labs: Short CBC 04/09/17 Range/Units 04:38 WBC 13.9 H (4.3-11.1) K/mcL Hgb 13.9 (11.5-15.4) g/dL Hct 41.4 (35.3-44.9) % Plt Count 239 (140-400) K/mcL Neutrophils # 12.5 H (1.6-8.9) K/mcL BMP 04/09/17 04:38 Sodium 137 Potassium 4.3 Chloride 103 Carbon Dioxide 28 BUN 33 H Creatinine 1.23 H Glucose 199 H Calcium 10.2 - ABG Interpretation ABG results: PT/INR, D-dimer PT 12.3 Seconds (9.4-12.1) H 04/05/17 17:20 - Impressions Impressions Chest CT 04/08/17 16:30 IMPRESSION: Evidence of bronchial wall thickening and mucous plugging in the lower lobes bilaterally, greater on the left. Findings would suggest bronchitis/ bronchiolitis. Follow-up to resolution is necessary to ensure that there is no endobronchial lesion. Dilation of the abdominal aorta, incompletely evaluated. Recommendation below. Moderate motion degradation. RECOMMENDATIONS: Managing Abdominal Aortic Aneurysms 3.5-3.9 cm: Every 1 year. *For abdominal aortas with maximum diameter of 2.6-2.9 cm meeting criteria for AAA (>50% of proximal normal segment). Reference: J Vasc Surg. 2008;50(4 Suppl):S2-49 D/ / Bob Low MD / Bob Low MD Interpreting Provider: Bob Low MD Abdomen/Pelvis CT 04/09/17 12:06 IMPRESSION: 1. No acute intra-abdominal or intrapelvic process. 2. Colonic diverticulosis without evidence of diverticulitis. 3. Re- demonstration of mid/distal abdominal aortic aneurysm without significant interval change. No retroperitoneal hematoma. 4. Status post hysterectomy and cholecystectomy. 5. Trace pericardial effusion is unchanged. This is of unclear etiology. D/ / Mark Briceno MD / Mark Briceno MD Interpreting Provider: Mark Briceno MD - Attending Attestation Consider possible early acute diverticulitis of the patient complains of severe abdominal pain, CT scan was not able to be performed with oral or IV contrast due to allergies. Continue Rocephin and add Flagyl IV Severe constipation, add lactulose I examined this patient and my medical decision-making was reviewed with the Resident Physician. I agree with the documented findings, disposition and treatment plan as described except to the extent set forth below.
[2017-04-09] MEDS ORDERED: Lactulose Oral Soln 20 GM/30 ML UDC PO ONE (14:15)
[2017-04-09] MEDS: MetroNIDAZOLE 500 MG/100 ML 500 MG/100 ML BAG IVPB SCH ×3 (17:07→23:46)
[2017-04-10] MEDS: Acetylcysteine 10% 2 ML INHSOL IH SCH ×6 (04:42→22:18)
[2017-04-10] MEDS: Ipratropium/Albuterol Neb 3 ML IH SCH ×4 (04:42→22:18)
[2017-04-10 04:54] LABS: Basophils % 0.2 %; Hematocrit 41.1 % (35.3-44.9); Hemoglobin 13.9 g/dL (11.5-15.4); Immature Granulocytes % 1.9 % (0-4); Lymphocytes # 0.9 K/mcL (0.6-4.6); Lymphocytes % 6.9 %; Mean Corpuscular HGB Conc 33.8 g/dL (31.6-35.5); Mean Corpuscular Hemoglobin 31.2 pg (28.0-33.3); Mean Corpuscular Volume 92.2 fL (83.0-100.0); Mean Platelet Volume 9.8 fL (9.4-12.4); Monocytes # 0.5 K/mcL (0.0-1.3); Monocytes % 3.7 %; Neutrophils # 11.2 K/mcL (1.6-8.9); Platelet Count 245 K/mcL (140-400); Red Blood Count 4.46 M/mcL (3.82-4.97); Red Cell Distribution Width 13.5 % (11.5-14.5); Segmented Neutrophils % 87.3 %
[2017-04-10 05:04] LABS: BUN/Creatinine Ratio 39 (6-26); Blood Urea Nitrogen 38 mg/dL (7-20); Calcium 10.2 mg/dL (8.6-10.8); Carbon Dioxide 26 mEq/L (19-29); Chloride 105 mEq/L (98-109); Glucose 134 mg/dL (70-99); Osmolality,Calculated 295 (280-300); Potassium 4.5 mEq/L (3.5-4.5); Sodium 137 mEq/L (136-145); eGFR For African Americans > 60 (> 60); eGFR For Non-African Americans 55 (> 60)
[2017-04-10] MEDS: methylPREDNISolone 125 MG/2 ML VIAL IVP SCH (05:13)
[2017-04-10] MEDS: *HR* Heparin 5,000 UNIT/ML VIAL SQ SCH ×2 (05:13→18:02)
--- NOTE | 2017-04-10 06:33 | Internal Med Progress Note ---
<Jeremy Mckinley - Last Filed: 04/10/17 08:20> Date of Encounter: 04/10/17 Time of Encounter: 06:00 - Assessment and plan (1) Acute exacerbation of chronic obstructive airways disease Current Visit: Yes Status: Acute Assessment and plan: Dyspnea and dry non-productive cough for 2-3 days prior to admission. Patient reports having worsening shortness of breath today as well as feeling of something in her chest that woke him up CXR: Hyperinflation. No focal consolidation, effusion, nor edema Reports using CPAP and albuterol at home CT performed yesterday afternoon did not show any fluid or interstitial process. She was noted to have some mucous plugging in the lower lobes bilaterally Improvement in patient lung sounds on auscultation today Started ceftriaxone yesterday, day 3 today Continue Solu-Medrol at 80 mg every 6 hours Wheezes still present, but improved Consider beginning taper Will add mucamyst IH Breathing treatments with duo nebs We will continue monitor renal function with chemistry Supplemental O2 as needed, wean as tolerated (2) Abdominal pain Current Visit: Yes Status: Acute Assessment and plan: Symptomatic, suspected diverticulosis and constipation Possible small diverticulitis, it is difficult to assess given lack of IV contrast and obstruction with stool Patient developed significant abdominal pain on the evening of 04/08/17 Reported nausea with no vomiting, anorexia those forces herself to eat, flatus but no bowel movements Tenderness to palpation improved today with only mild tenderness in the right lower quadrant No reports of diarrhea Patient has been on antibiotics for 6 days, though doubt C. difficile without profuse diarrhea CT of her abdomen did show significant stool in her transverse colon as well as diverticulosis in the right colon Given lactulose yesterday with some improvement Consider additional lactulose today Flagyl started yesterday will complete 5 day course Qualifiers: Abdominal location: generalized Qualified Code(s): R10.84 - Generalized abdominal pain (3) HTN (hypertension) Current Visit: No Status: Chronic Assessment and plan: Blood pressure has been stable Continue home medications. Qualifiers: Hypertension type: essential hypertension Qualified Code(s): I10 - Essential (primary) hypertension (4) Tobacco abuse Current Visit: No Status: Chronic Assessment and plan: Patient reports having 47 year smoking history of 0.5 ppd. Has not been smoking recently due to shortness of breath. Patient does describe interest in smoking cessation Continue nicotine patch Patient will require nicotine patches upon discharge (5) DVT prophylaxis Current Visit: Yes Status: Acute Assessment and plan: 5000 units heparin subcutaneous twice a day - Subjective Interval history: Patient reports she has been doing well overall, though does state she had an episode of shortness of breath requiring breathing treatment earlier this morning. She states she has had improving cough, feeling she is able to bring up more mucus. She states that her abdominal pain has improved a little bit after the lactulose yesterday but is still present. She denies fever/chills, denies chest pain, denies pleuritic pain - Constitutional Vitals: Temp Pulse Resp BP Pulse Ox 98.8 F 79 15 169/85 97 04/10/17 04:39 04/10/17 04:39 04/10/17 04:44 04/10/17 04:39 04/10/17 04:44 General appearance: Present: A&O X 3, no acute distress Exam: General: Cooperative, pleasant, no acute distress, alert and oriented 3, answers questions appropriately HEENT: Normocephalic, atraumatic, neck supple, trachea midline, Conjunctiva pink , sclera anicteric Respiratory: No accessory muscle usage, improved aeration of bilateral lungs, slight, diffuse expiratory wheezes on auscultation (improved from yesterday) Cardiovascular: Regular rate and rhythm, S1 and S2 present, no murmurs/rubs/ gallops/clicks appreciated Abdominal: Hyperactive bowel sounds, mild tenderness in right lower lobe quadrant, negative rebound, soft Extremities: No calf tenderness, mild pedal edema appreciated, warm, lower extremity pulses palpable and symmetrical Neurological: Alert and oriented 3, no facial droop, no focal deficits Internal Medicine: Result - Labs CBC & Chem 7: 04/10/17 04:29 04/10/17 04:29 Labs: Short CBC 04/10/17 Range/Units 04:29 WBC 12.8 H (4.3-11.1) K/mcL Hgb 13.9 (11.5-15.4) g/dL Hct 41.1 (35.3-44.9) % Plt Count 245 (140-400) K/mcL Neutrophils # 11.2 H (1.6-8.9) K/mcL BMP 04/10/17 04:29 Sodium 137 Potassium 4.5 Chloride 105 Carbon Dioxide 26 BUN 38 H Creatinine 0.98 Glucose 134 H Calcium 10.2 - ABG Interpretation ABG results: PT/INR, D-dimer PT 12.3 Seconds (9.4-12.1) H 04/05/17 17:20 - Impressions Impressions Abdomen/Pelvis CT 04/09/17 12:06 IMPRESSION: 1. No acute intra-abdominal or intrapelvic process. 2. Colonic diverticulosis without evidence of diverticulitis. 3. Re- demonstration of mid/distal abdominal aortic aneurysm without significant interval change. No retroperitoneal hematoma. 4. Status post hysterectomy and cholecystectomy. 5. Trace pericardial effusion is unchanged. This is of unclear etiology. D/ / Mark Briceno MD / Mark Briceno MD Interpreting Provider: Mark Briceno MD Consult Discharge Plan - Plan Referrals: [facility] DO [Partnered Physician] - 04/15/17 1:30 pm <Cuauhtemoc Loving H - Last Filed: 04/10/17 13:34> Date of Encounter: 04/10/17 - Constitutional Vitals: Temp Pulse Resp BP Pulse Ox 98.2 F 66 16 164/82 95 04/10/17 10:07 04/10/17 10:07 04/10/17 10:51 04/10/17 10:07 04/10/17 10:51 Internal Medicine: Result - Labs CBC & Chem 7: 04/10/17 04:29 04/10/17 04:29 Labs: Short CBC 04/10/17 Range/Units 04:29 WBC 12.8 H (4.3-11.1) K/mcL Hgb 13.9 (11.5-15.4) g/dL Hct 41.1 (35.3-44.9) % Plt Count 245 (140-400) K/mcL Neutrophils # 11.2 H (1.6-8.9) K/mcL BMP 04/10/17 04:29 Sodium 137 Potassium 4.5 Chloride 105 Carbon Dioxide 26 BUN 38 H Creatinine 0.98 Glucose 134 H Calcium 10.2 - ABG Interpretation ABG results: PT/INR, D-dimer PT 12.3 Seconds (9.4-12.1) H 04/05/17 17:20 - Impressions Impressions Abdomen/Pelvis CT 04/09/17 12:06 IMPRESSION: 1. No acute intra-abdominal or intrapelvic process. 2. Colonic diverticulosis without evidence of diverticulitis. 3. Re- demonstration of mid/distal abdominal aortic aneurysm without significant interval change. No retroperitoneal hematoma. 4. Status post hysterectomy and cholecystectomy. 5. Trace pericardial effusion is unchanged. This is of unclear etiology. D/ / Mark Briceno MD / Mark Briceno MD Interpreting Provider: Mark Briceno MD - Attending Attestation possible acute mild diverticulitis ( clinically symptomatic) continue rocephin and flagyl I examined this patient and my medical decision-making was reviewed with the Resident Physician. I agree with the documented findings, disposition and treatment plan as described except to the extent set forth below.
[2017-04-10] MEDS: Isosorbide MONOnitrate (24 HR) 30 MG TAB.ER.24H PO SCH (10:09)
[2017-04-10] MEDS: MethylPREDNISolone 40 MG/ML VIAL IVP SCH ×3 (10:09→21:11)
[2017-04-10] MEDS: Cholecalciferol (D-3) 1,000 UNIT TABLET PO SCH (10:09)
[2017-04-10] MEDS: Lisinopril 20 MG TABLET PO SCH (10:09)
[2017-04-10] MEDS: Famotidine 20 MG TABLET PO SCH (10:10)
[2017-04-10] MEDS: amLODIPine 5 MG TABLET PO SCH (10:10)
[2017-04-10] MEDS: Furosemide 20 MG TABLET PO SCH (10:10)
[2017-04-10] MEDS: cefTRIAXone 1,000 MG in Water for inj. (sterile) 10 ML IVP SCH (10:10)
[2017-04-10] MEDS: Nicotine 7 MG PATCH.TD24 TD SCH (10:11)
[2017-04-10] MEDS: MetroNIDAZOLE 500 MG/100 ML 500 MG/100 ML BAG IVPB SCH ×2 (10:11→16:49)
[2017-04-10] MEDS: ALPRAZolam 0.5 MG TABLET PO PRN (16:47)
[2017-04-10] MEDS: *HR* Morphine 2 MG/ML SYRINGE IVP PRN (18:02)
[2017-04-11] MEDS: MetroNIDAZOLE 500 MG/100 ML 500 MG/100 ML BAG IVPB SCH ×3 (00:23→17:44)
[2017-04-11] MEDS: Ipratropium/Albuterol Neb 3 ML IH SCH ×4 (03:48→22:00)
[2017-04-11] MEDS: Acetylcysteine 10% 2 ML INHSOL IH SCH ×6 (03:49→23:17)
[2017-04-11 05:42] LABS: Basophils # 0.1 K/mcL (0.0-0.2); Basophils % 0.4 %; Eosinophils % 0.1 %; Hematocrit 40.4 % (35.3-44.9); Hemoglobin 13.4 g/dL (11.5-15.4); Immature Granulocytes % 3.4 % (0-4); Immature Platelets 3.7 % (1.1-6.1); Lymphocytes % 6.4 %; Mean Corpuscular HGB Conc 33.2 g/dL (31.6-35.5); Mean Corpuscular Hemoglobin 30.6 pg (28.0-33.3); Mean Corpuscular Volume 92.2 fL (83.0-100.0); Mean Platelet Volume 9.6 fL (9.4-12.4); Monocytes # 0.7 K/mcL (0.0-1.3); Monocytes % 4.7 %; Platelet Count 241 K/mcL (140-400); Red Blood Count 4.38 M/mcL (3.82-4.97); Red Cell Distribution Width 13.8 % (11.5-14.5)
[2017-04-11 06:05] LABS: BUN/Creatinine Ratio 37 (6-26); Blood Urea Nitrogen 38 mg/dL (7-20); Calcium 9.5 mg/dL (8.6-10.8); Carbon Dioxide 25 mEq/L (19-29); Chloride 104 mEq/L (98-109); Glucose 132 mg/dL (70-99); Osmolality,Calculated 295 (280-300); Potassium 4.5 mEq/L (3.5-4.5); Sodium 137 mEq/L (136-145); eGFR For African Americans > 60 (> 60); eGFR For Non-African Americans 51 (> 60)
[2017-04-11] MEDS: *HR* Heparin 5,000 UNIT/ML VIAL SQ SCH ×2 (06:24→17:47)
--- NOTE | 2017-04-11 08:40 | Internal Med Progress Note ---
<Jeremy Mckinley - Last Filed: 04/11/17 09:33> Date of Encounter: 04/11/17 Time of Encounter: 06:20 - Assessment and plan (1) Acute exacerbation of chronic obstructive airways disease Current Visit: Yes Status: Acute Assessment and plan: Dyspnea and dry non-productive cough for 2-3 days prior to admission. Patient reports having worsening shortness of breath today as well as feeling of something in her chest CXR: Hyperinflation. No focal consolidation, effusion, nor edema Reports using CPAP and albuterol at home CT performed 04/09/17 afternoon did not show any fluid or interstitial process. She was noted to have some mucous plugging in the lower lobes bilaterally Continued improvement in patient breath sounds on auscultation today, no adventitious breath sounds heard Will stop ceftriaxone today, day 4 today Will start ciprofloxacin Will change steroids to Prednisone 40 mg daily Continue mucamyst IH Breathing treatments with duo nebs We will continue monitor renal function with chemistry Supplemental O2 as needed, wean as tolerated (2) Abdominal pain Current Visit: Yes Status: Acute Assessment and plan: Symptomatic, suspected diverticulosis and constipation Possible small diverticulitis, it is difficult to assess given lack of IV contrast and obstruction with stool Patient developed significant abdominal pain on the evening of 04/08/17 Reported nausea with no vomiting, anorexia those forces herself to eat, flatus but no bowel movements Tenderness to palpation improved today with only mild tenderness in the right lower quadrant No reports of diarrhea Patient has been on antibiotics for 6 days, though doubt C. difficile without profuse diarrhea CT of her abdomen did show significant stool in her transverse colon as well as diverticulosis in the right colon Given lactulose yesterday with some improvement Consider additional lactulose Flagyl started 04/09/17, day 3 today, will complete 5 day course Will start cipro, day 1 Qualifiers: Abdominal location: generalized Qualified Code(s): R10.84 - Generalized abdominal pain (3) HTN (hypertension) Current Visit: No Status: Chronic Assessment and plan: Blood pressure has been stable Continue home medications. Qualifiers: Hypertension type: essential hypertension Qualified Code(s): I10 - Essential (primary) hypertension (4) Tobacco abuse Current Visit: No Status: Chronic Assessment and plan: Patient reports having 47 year smoking history of 0.5 ppd. Has not been smoking recently due to shortness of breath. Patient does describe interest in smoking cessation Continue nicotine patch Patient will require nicotine patches upon discharge (5) CKD (chronic kidney disease), stage III Current Visit: No Status: Acute Assessment and plan: Stable Will continue to monitor (6) DVT prophylaxis Current Visit: Yes Status: Acute Assessment and plan: 5000 units heparin subcutaneous twice a day - Subjective Interval history: Patient reports she has had improvement in her ability to. Today, but states she still having cough, but is largely unproductive. She also reports having continuation of abdominal pain in the right lower quadrant. She denies having any nausea/vomiting, fever/chills, constipation/diarrhea. When asked that she felt as if she is ready to be discharged, she said no stating her cough and abdominal pain concern her. - Constitutional Vitals: Temp Pulse Resp BP Pulse Ox 97.6 F 60 16 136/89 97 04/11/17 08:05 04/11/17 08:05 04/11/17 08:05 04/11/17 08:05 04/11/17 08:05 General appearance: Present: A&O X 3, no acute distress Exam: General: Cooperative, pleasant, no acute distress, alert and oriented 3, answers questions appropriately HEENT: Normocephalic, atraumatic, neck supple, trachea midline, Conjunctiva pink , sclera anicteric Respiratory: No accessory muscle usage, improved aeration of bilateral lungs, no adventitious breath sounds heard on auscultation today Cardiovascular: Regular rate and rhythm, S1 and S2 present, no murmurs/rubs/ gallops/clicks appreciated Abdominal: Hyperactive bowel sounds, continued tenderness in right lower quadrant, rebound positive, soft Extremities: No calf tenderness, no pedal edema appreciated, warm, lower extremity pulses palpable and symmetrical Neurological: Alert and oriented 3, no facial droop, no focal deficits Internal Medicine: Result - Labs CBC & Chem 7: 04/11/17 05:27 04/11/17 05:27 Labs: Short CBC 04/11/17 Range/Units 05:27 WBC 15.3 H (4.3-11.1) K/mcL Hgb 13.4 (11.5-15.4) g/dL Hct 40.4 (35.3-44.9) % Plt Count 241 (140-400) K/mcL Neutrophils # 13.0 H (1.6-8.9) K/mcL BMP 04/11/17 05:27 Sodium 137 Potassium 4.5 Chloride 104 Carbon Dioxide 25 BUN 38 H Creatinine 1.04 Glucose 132 H Calcium 9.5 - ABG Interpretation ABG results: PT/INR, D-dimer PT 12.3 Seconds (9.4-12.1) H 04/05/17 17:20 - Impressions Impressions Abdomen/Pelvis CT 04/09/17 12:06 IMPRESSION: 1. No acute intra-abdominal or intrapelvic process. 2. Colonic diverticulosis without evidence of diverticulitis. 3. Re- demonstration of mid/distal abdominal aortic aneurysm without significant interval change. No retroperitoneal hematoma. 4. Status post hysterectomy and cholecystectomy. 5. Trace pericardial effusion is unchanged. This is of unclear etiology. D/ / Mark Briceno MD / Mark Briceno MD Interpreting Provider: Mark Briceno MD Consult Discharge Plan - Plan Referrals: [facility]cy Jefferson DO [Partnered Physician] - 04/15/17 1:30 pm <Cuauhtemoc Loving H - Last Filed: 04/11/17 13:01> Date of Encounter: 04/11/17 - Constitutional Vitals: Temp Pulse Resp BP Pulse Ox 97.6 F 60 16 136/89 97 04/11/17 08:05 04/11/17 08:05 04/11/17 08:05 04/11/17 08:05 04/11/17 08:05 Internal Medicine: Result - Labs CBC & Chem 7: 04/11/17 05:27 04/11/17 05:27 Labs: Short CBC 04/11/17 Range/Units 05:27 WBC 15.3 H (4.3-11.1) K/mcL Hgb 13.4 (11.5-15.4) g/dL Hct 40.4 (35.3-44.9) % Plt Count 241 (140-400) K/mcL Neutrophils # 13.0 H (1.6-8.9) K/mcL BMP 04/11/17 05:27 Sodium 137 Potassium 4.5 Chloride 104 Carbon Dioxide 25 BUN 38 H Creatinine 1.04 Glucose 132 H Calcium 9.5 - ABG Interpretation ABG results: PT/INR, D-dimer PT 12.3 Seconds (9.4-12.1) H 04/05/17 17:20 - Attending Attestation possible acute mild diverticulitis ( clinically symptomatic) Start ciprofloxacin and continue Flagyl IV I examined this patient and my medical decision-making was reviewed with the Resident Physician. I agree with the documented findings, disposition and treatment plan as described except to the extent set forth below.
[2017-04-11] MEDS: cefTRIAXone 1,000 MG in Water for inj. (sterile) 10 ML IVP SCH (09:38)
[2017-04-11] MEDS: *HR* Morphine 2 MG/ML SYRINGE IVP PRN (09:38)
[2017-04-11] MEDS: Lisinopril 20 MG TABLET PO SCH (09:39)
[2017-04-11] MEDS: Nicotine 7 MG PATCH.TD24 TD SCH (09:39)
[2017-04-11] MEDS: Isosorbide MONOnitrate (24 HR) 30 MG TAB.ER.24H PO SCH (09:39)
[2017-04-11] MEDS: Famotidine 20 MG TABLET PO SCH (09:40)
[2017-04-11] MEDS: Cholecalciferol (D-3) 1,000 UNIT TABLET PO SCH (09:40)
[2017-04-11] MEDS: Furosemide 20 MG TABLET PO SCH (09:40)
[2017-04-11] MEDS: amLODIPine 5 MG TABLET PO SCH (09:41)
[2017-04-11] MEDS: predniSONE 20 MG TABLET PO SCH (09:54)
[2017-04-11] MEDS ORDERED: *HR* Morphine 2 MG/ML SYRINGE IVP PRN (10:21)
[2017-04-11] MEDS: *HR* HYDROcodone/Acet 5/325 mg TABLET PO PRN (17:42)
--- NOTE | 2017-04-11 18:37 | Electrocardiograph Report ---
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
[2017-04-12] MEDS: MetroNIDAZOLE 500 MG/100 ML 500 MG/100 ML BAG IVPB SCH ×4 (00:03→23:13)
[2017-04-12] MEDS: *HR* Heparin 5,000 UNIT/ML VIAL SQ SCH ×2 (05:23→18:34)
[2017-04-12] MEDS: Acetylcysteine 10% 2 ML INHSOL IH SCH ×6 (05:35→23:01)
[2017-04-12] MEDS: Ipratropium/Albuterol Neb 3 ML IH SCH ×4 (05:35→21:52)
[2017-04-12 06:54] LABS: Basophils # 0.1 K/mcL (0.0-0.2); Basophils % 0.6 %; Eosinophils % 0.1 %; Hematocrit 41.1 % (35.3-44.9); Hemoglobin 13.5 g/dL (11.5-15.4); Immature Granulocytes % 4.7 % (0-4); Immature Platelets 3.6 % (1.1-6.1); Lymphocytes # 1.4 K/mcL (0.6-4.6); Lymphocytes % 10.4 %; Mean Corpuscular HGB Conc 32.8 g/dL (31.6-35.5); Mean Corpuscular Hemoglobin 30.5 pg (28.0-33.3); Mean Platelet Volume 9.7 fL (9.4-12.4); Monocytes # 1.1 K/mcL (0.0-1.3); Monocytes % 8.4 %; Neutrophils # 10.3 K/mcL (1.6-8.9); Nucleated Red Blood Cells 0.1 /100 WBC (0); Platelet Count 236 K/mcL (140-400); Red Blood Count 4.42 M/mcL (3.82-4.97); Red Cell Distribution Width 13.7 % (11.5-14.5); Segmented Neutrophils % 75.8 %
[2017-04-12 07:08] LABS: BUN/Creatinine Ratio 33 (6-26); Blood Urea Nitrogen 35 mg/dL (7-20); Calcium 9.6 mg/dL (8.6-10.8); Carbon Dioxide 30 mEq/L (19-29); Chloride 100 mEq/L (98-109); Glucose 138 mg/dL (70-99); Osmolality,Calculated 286 (280-300); Potassium 4.7 mEq/L (3.5-4.5); Sodium 133 mEq/L (136-145); eGFR For African Americans > 60 (> 60); eGFR For Non-African Americans 50 (> 60)
[2017-04-12] MEDS: Albuterol 2.5 MG/3 ML NEBULIZER IH PRN (07:35)
--- NOTE | 2017-04-12 08:08 | Internal Med Progress Note ---
<Hira Fernandez - Last Filed: 04/12/17 08:04> Date of Encounter: 04/12/17 Time of Encounter: 08:04 - Assessment and plan (1) Acute exacerbation of chronic obstructive airways disease Current Visit: Yes Status: Acute Assessment and plan: Dyspnea and dry non-productive cough for 2-3 days prior to admission. Patient has decreased shortness of breath CXR: Hyperinflation. No focal consolidation, effusion, nor edema Reports using CPAP and albuterol at home CT performed 04/09/17 afternoon did not show any fluid or interstitial process. She was noted to have some mucous plugging in the lower lobes bilaterally Continued improvement in patient breath sounds on auscultation today, no adventitious breath sounds heard Completed 4 days Ceftriaxone Continue ciprofloxacin Day 2 Conitnue Prednisone 40 mg daily Continue mucamyst IH Breathing treatments with duo nebs We will continue monitor renal function with chemistry Supplemental O2 as needed, wean as tolerated (2) Abdominal pain Current Visit: Yes Status: Acute Assessment and plan: Symptomatic, possible acute mild diverticulitis and constipation Possible small diverticulitis, it is difficult to assess given lack of IV contrast and obstruction with stool Patient developed significant abdominal pain on the evening of 04/08/17 Reported nausea with no vomiting, anorexia those forces herself to eat, flatus but no bowel movements Tenderness to palpation improved with only mild tenderness in the right lower quadrant No reports of diarrhea CT of her abdomen did show significant stool in her transverse colon as well as diverticulosis in the right colon Given lactulose yesterday with some improvement Consider additional lactulose Senna plus ordered for Constipation Flagyl IV started 04/09/17, day 4 today, will complete 5 day course Continue cipro, day 2 Qualifiers: Abdominal location: generalized Qualified Code(s): R10.84 - Generalized abdominal pain (3) HTN (hypertension) Current Visit: No Status: Chronic Assessment and plan: Blood pressure has been stable Continue home medications. Qualifiers: Hypertension type: essential hypertension Qualified Code(s): I10 - Essential (primary) hypertension (4) CKD (chronic kidney disease), stage III Current Visit: No Status: Acute Assessment and plan: Stable Will continue to monitor (5) Tobacco abuse Current Visit: No Status: Chronic Assessment and plan: Patient reports having 47 year smoking history of 0.5 ppd. Has not been smoking recently due to shortness of breath. Patient does describe interest in smoking cessation Continue nicotine patch Patient will require nicotine patches upon discharge (6) DVT prophylaxis Current Visit: Yes Status: Acute Assessment and plan: 5000 units heparin subcutaneous twice a day - Subjective Interval history: Patient seen and examined wearing CPAP mask. Patient denies SOB or cough today. Patient reports itching in left arm and slightly improved abdominal pain. Her last BM was 3 days ago. When asked if she felt as if she feels ready to be discharged, she said no stating her abdominal pain is still concerning her. - Constitutional Vitals: Temp Pulse Resp BP Pulse Ox 97.7 F 62 21 145/75 98 04/12/17 06:31 04/12/17 06:31 04/12/17 07:36 04/12/17 06:31 04/12/17 07:36 General appearance: Present: cooperative, A&O X 3, pleasant, no acute distress, answers questions appropriately Exam: General: Cooperative, pleasant, no acute distress, alert and oriented 3, answers questions appropriately, wearing CPAP mask HEENT: Normocephalic, atraumatic, neck supple, trachea midline, Conjunctiva pink , sclera anicteric Neck: soft, NT Respiratory: No accessory muscle usage, improved aeration of bilateral lungs, no adventitious breath sounds heard on auscultation today Cardiovascular: Regular rate and rhythm, S1 and S2 present, no murmurs/rubs/ gallops/clicks appreciated Abdominal: Normal bowel sounds, continued tenderness in right lower quadrant, rebound positive, soft Extremities: No calf tenderness, no pedal edema appreciated, warm, lower extremity pulses palpable and symmetrical Neurological: Alert and oriented 3, no facial droop, no focal deficits Psych: normal mood, normal affect Internal Medicine: Result - Labs CBC & Chem 7: 04/12/17 05:48 04/12/17 05:48 Labs: Short CBC 04/12/17 Range/Units 05:48 WBC 13.6 H (4.3-11.1) K/mcL Hgb 13.5 (11.5-15.4) g/dL Hct 41.1 (35.3-44.9) % Plt Count 236 (140-400) K/mcL Neutrophils # 10.3 H (1.6-8.9) K/mcL BMP 04/12/17 05:48 Sodium 133 L Potassium 4.7 H Chloride 100 Carbon Dioxide 30 H BUN 35 H Creatinine 1.06 Glucose 138 H Calcium 9.6 - ABG Interpretation ABG results: PT/INR, D-dimer PT 12.3 Seconds (9.4-12.1) H 04/05/17 17:20 - Pulse Oximetry Interpretation Digit-Finger Pulse Oximetry Readin (on CPAP) Actions taken: none Consult Discharge Plan - Plan Referrals: [facility] DO [Partnered Physician] - 04/15/17 1:30 pm <Cuauhtemoc Loving - Last Filed: 04/12/17 10:44> Date of Encounter: 04/12/17 - Constitutional Vitals: Temp Pulse Resp BP Pulse Ox 97.7 F 60 21 148/73 98 04/12/17 06:31 04/12/17 09:30 04/12/17 07:36 04/12/17 09:30 04/12/17 07:36 Internal Medicine: Result - Labs CBC & Chem 7: 04/12/17 05:48 04/12/17 05:48 Labs: Short CBC 04/12/17 Range/Units 05:48 WBC 13.6 H (4.3-11.1) K/mcL Hgb 13.5 (11.5-15.4) g/dL Hct 41.1 (35.3-44.9) % Plt Count 236 (140-400) K/mcL Neutrophils # 10.3 H (1.6-8.9) K/mcL BMP 04/12/17 05:48 Sodium 133 L Potassium 4.7 H Chloride 100 Carbon Dioxide 30 H BUN 35 H Creatinine 1.06 Glucose 138 H Calcium 9.6 - ABG Interpretation ABG results: PT/INR, D-dimer PT 12.3 Seconds (9.4-12.1) H 04/05/17 17:20 - Attending Attestation possible acute mild diverticulitis ( clinically symptomatic) continue ciprofloxacin and Flagyl IV I examined this patient and my medical decision-making was reviewed with the Resident Physician. I agree with the documented findings, disposition and treatment plan as described except to the extent set forth below.
[2017-04-12] MEDS: amLODIPine 5 MG TABLET PO SCH (09:36)
[2017-04-12] MEDS: Isosorbide MONOnitrate (24 HR) 30 MG TAB.ER.24H PO SCH (09:36)
[2017-04-12] MEDS: Famotidine 20 MG TABLET PO SCH (09:36)
[2017-04-12] MEDS: Furosemide 20 MG TABLET PO SCH (09:36)
[2017-04-12] MEDS: Cholecalciferol (D-3) 1,000 UNIT TABLET PO SCH (09:37)
[2017-04-12] MEDS: Lisinopril 20 MG TABLET PO SCH (09:37)
[2017-04-12] MEDS: predniSONE 20 MG TABLET PO SCH (09:37)
[2017-04-12] MEDS: Sennosides/Docusate Sodium TABLET PO SCH ×2 (09:37→20:13)
[2017-04-12] MEDS: Nicotine 7 MG PATCH.TD24 TD SCH (09:40)
[2017-04-12] MEDS: *HR* HYDROcodone/Acet 5/325 mg TABLET PO PRN (20:16)
[2017-04-13] MEDS: Ipratropium/Albuterol Neb 3 ML IH SCH ×4 (04:01→22:30)
[2017-04-13] MEDS: Acetylcysteine 10% 2 ML INHSOL IH SCH ×6 (04:02→22:30)
[2017-04-13 06:07] LABS: Basophils # 0.1 K/mcL (0.0-0.2); Basophils % 0.8 %; Eosinophils # 0.1 K/mcL (0.0-0.6); Eosinophils % 0.5 %; Hematocrit 40.5 % (35.3-44.9); Hemoglobin 13.5 g/dL (11.5-15.4); Immature Granulocytes % 7.7 % (0-4); Lymphocytes % 14.8 %; Mean Corpuscular HGB Conc 33.3 g/dL (31.6-35.5); Mean Corpuscular Hemoglobin 31.1 pg (28.0-33.3); Mean Corpuscular Volume 93.3 fL (83.0-100.0); Mean Platelet Volume 9.6 fL (9.4-12.4); Monocytes # 1.3 K/mcL (0.0-1.3); Monocytes % 9.5 %; Neutrophils # 8.9 K/mcL (1.6-8.9); Platelet Count 213 K/mcL (140-400); Red Blood Count 4.34 M/mcL (3.82-4.97); Red Cell Distribution Width 13.8 % (11.5-14.5); Segmented Neutrophils % 66.7 %
[2017-04-13 06:31] LABS: Platelet Estimate Normal (Normal); Reactive Lymphocytes Present (Not Present)
[2017-04-13 06:41] LABS: Calcium 9.6 mg/dL (8.6-10.8); Potassium 5.3 mEq/L (3.5-4.5)
[2017-04-13] MEDS: *HR* Heparin 5,000 UNIT/ML VIAL SQ SCH ×2 (09:31→18:52)
[2017-04-13] MEDS: Isosorbide MONOnitrate (24 HR) 30 MG TAB.ER.24H PO SCH (09:33)
[2017-04-13] MEDS: Furosemide 20 MG TABLET PO SCH (09:33)
[2017-04-13] MEDS: Sennosides/Docusate Sodium TABLET PO SCH ×2 (09:33→20:22)
[2017-04-13] MEDS: MetroNIDAZOLE 500 MG/100 ML 500 MG/100 ML BAG IVPB SCH ×2 (09:33→16:28)
[2017-04-13] MEDS: Nicotine 7 MG PATCH.TD24 TD SCH (09:34)
[2017-04-13] MEDS: Cholecalciferol (D-3) 1,000 UNIT TABLET PO SCH (09:35)
[2017-04-13] MEDS: Lisinopril 20 MG TABLET PO SCH (09:35)
[2017-04-13] MEDS: predniSONE 20 MG TABLET PO SCH (09:35)
[2017-04-13] MEDS: Famotidine 20 MG TABLET PO SCH (09:35)
[2017-04-13] MEDS: amLODIPine 5 MG TABLET PO SCH (09:41)
[2017-04-13] MEDS ORDERED: GI Cocktail 40 ML EACH PO ONE (12:46)
--- NOTE | 2017-04-13 13:03 | Internal Med Progress Note ---
<Hira Fernandez - Last Filed: 04/13/17 13:48> Date of Encounter: 04/13/17 Time of Encounter: 10:00 - Assessment and plan (1) Acute exacerbation of chronic obstructive airways disease Current Visit: Yes Status: Acute Assessment and plan: Dyspnea and dry non-productive cough for 2-3 days prior to admission. Patient has decreased shortness of breath CXR: Hyperinflation. No focal consolidation, effusion, nor edema Reports using CPAP and albuterol at home CT performed 04/09/17 afternoon did not show any fluid or interstitial process. She was noted to have some mucous plugging in the lower lobes bilaterally Continued improvement in patient breath sounds on auscultation today, no adventitious breath sounds heard Completed 4 days Ceftriaxone Continue ciprofloxacin (Day 3) and Flagyl (Day 4) Conitnue Prednisone 40 mg daily Continue mucamyst IH Breathing treatments with duo nebs We will continue monitor renal function with chemistry Supplemental O2 as needed, wean as tolerated Patient passed 6 minute walk test this AM. (2) Abdominal pain Current Visit: Yes Status: Acute Assessment and plan: Symptomatic, possible acute mild diverticulitis and constipation Possible small diverticulitis, it is difficult to assess given lack of IV contrast and obstruction with stool Patient developed significant abdominal pain on the evening of 04/08/17 Reported nausea with no vomiting, anorexia those forces herself to eat, flatus but no bowel movements Tenderness to palpation improved with only mild tenderness in the right lower quadrant No reports of diarrhea CT of her abdomen did show significant stool in her transverse colon as well as diverticulosis in the right colon Given lactulose yesterday with some improvement Consider additional lactulose Senna plus ordered for Constipation Flagyl IV started 04/09/17, will complete 5 day course Continue ciprofloxacin (Day 3) and Flagyl (Day 4) LFTs, amylase, lipase, troponin, lactic acid pending Qualifiers: Abdominal location: generalized Qualified Code(s): R10.84 - Generalized abdominal pain (3) GERD (gastroesophageal reflux disease) Current Visit: Yes Status: Acute Assessment and plan: Patient reports epigstric pain. EKG reveals sinus ron with unchanged LBBB. Family is at bedside and reports patient reported feeling like food gets stuck in her esophagus. Will try GI cocktail. Continue home PPI Qualifiers: Esophagitis presence: esophagitis presence not specified Qualified Code(s) : K21.9 - Gastro-esophageal reflux disease without esophagitis (4) HTN (hypertension) Current Visit: No Status: Chronic Assessment and plan: Blood pressure has been stable Continue home medications. Qualifiers: Hypertension type: essential hypertension Qualified Code(s): I10 - Essential (primary) hypertension (5) CKD (chronic kidney disease), stage III Current Visit: No Status: Acute Assessment and plan: Stable Will continue to monitor (6) Tobacco abuse Current Visit: No Status: Chronic Assessment and plan: Patient reports having 47 year smoking history of 0.5 ppd. Has not been smoking recently due to shortness of breath. Patient does describe interest in smoking cessation Continue nicotine patch Patient will require nicotine patches upon discharge (7) DVT prophylaxis Current Visit: Yes Status: Acute Assessment and plan: 5000 units heparin subcutaneous twice a day - Subjective Interval history: Patient seen and examined. Patient reports CP today. EKG reveals sinus ron with unchanged LBBB. When asked if she felt as if she feels ready to be discharged, she said no stating her chest pain is still concerning her. Family is at bedside and reports patient reported feeling like food gets stuck in her esophagus. Will try GI cocktail. Patient passed 6 minute walk test this AM. - Constitutional Vitals: Temp Pulse Resp BP Pulse Ox 98.3 F 64 14 142/65 96 04/12/17 21:21 04/13/17 09:31 04/13/17 04:55 04/13/17 09:31 04/13/17 04:55 General appearance: Present: cooperative, mild distress, A&O X 3, pleasant, answers questions appropriately Exam: General: Cooperative, pleasant, mild distress, alert and oriented 3, answers questions appropriately, wearing CPAP mask HEENT: Normocephalic, atraumatic, neck supple, trachea midline, Conjunctiva pink , sclera anicteric Neck: soft, NT Respiratory: No accessory muscle usage, improved aeration of bilateral lungs, no adventitious breath sounds heard on auscultation today Cardiovascular: Regular rate and rhythm, S1 and S2 present, no murmurs/rubs/ gallops/clicks appreciated Abdominal: Normal bowel sounds, continued tenderness in right lower quadrant, rebound positive, soft Extremities: No calf tenderness, no pedal edema appreciated, warm, lower extremity pulses palpable and symmetrical Neurological: Alert and oriented 3, no facial droop, no focal deficits Psych: normal mood, normal affect Internal Medicine: Result - Labs CBC & Chem 7: 04/13/17 05:35 04/13/17 05:35 Labs: Short CBC 04/13/17 Range/Units 05:35 WBC 13.4 H (4.3-11.1) K/mcL Hgb 13.5 (11.5-15.4) g/dL Hct 40.5 (35.3-44.9) % Plt Count 213 (140-400) K/mcL Neutrophils # 8.9 (1.6-8.9) K/mcL [facility] 04/13/17 05:35 Sodium 135 L Potassium 5.3 H Chloride 101 Carbon Dioxide 30 H BUN 36 H Creatinine 1.14 H Glucose 89 Calcium 9.6 - ABG Interpretation ABG results: PT/INR, D-dimer PT 12.3 Seconds (9.4-12.1) H 04/05/17 17:20 - Pulse Oximetry Interpretation Digit-Finger Pulse Oximetry Readin (on RA) Consult Discharge Plan - Plan Referrals: [facility] DO [Partnered Physician] - 04/15/17 1:30 pm <Cuauhtemoc Loving - Last Filed: 04/13/17 13:50> Date of Encounter: 04/13/17 - Constitutional Vitals: Temp Pulse Resp BP Pulse Ox 98.3 F 64 16 142/65 94 04/12/17 21:21 04/13/17 09:31 04/13/17 10:42 04/13/17 09:31 04/13/17 10:42 Internal Medicine: Result - Labs CBC & Chem 7: 04/13/17 05:35 04/13/17 05:35 Labs: Short CBC 04/13/17 Range/Units 05:35 WBC 13.4 H (4.3-11.1) K/mcL Hgb 13.5 (11.5-15.4) g/dL Hct 40.5 (35.3-44.9) % Plt Count 213 (140-400) K/mcL Neutrophils # 8.9 (1.6-8.9) K/mcL BMP 04/13/17 05:35 Sodium 135 L Potassium 5.3 H Chloride 101 Carbon Dioxide 30 H BUN 36 H Creatinine 1.14 H Glucose 89 Calcium 9.6 - ABG Interpretation ABG results: PT/INR, D-dimer PT 12.3 Seconds (9.4-12.1) H 04/05/17 17:20 - Attending Attestation Severe abdominal/chest pain Order troponins, lipase, lactic acid Consider echocardiogram if a cardiac problem is suspected Morphine and nitroglycerin as needed I examined this patient and my medical decision-making was reviewed with the Resident Physician. I agree with the documented findings, disposition and treatment plan as described except to the extent set forth below.
[2017-04-13] MEDS: Nitroglycerin 0.4 MG TAB.SUBL SL PRN ×2 (13:11→13:50)
[2017-04-13] MEDS: *HR* HYDROcodone/Acet 5/325 mg TABLET PO PRN (13:38)
[2017-04-13 14:03] LABS: INR 1.1; Prothrombin Time 12.3 Seconds (9.4-12.1)
[2017-04-13 14:06] LABS: Activated Partial Thrombo Time 33.3 Seconds (26.0-36.0)
[2017-04-13 14:16] LABS: Albumin 2.8 g/dL (3.5-5.0); Albumin/Globulin Ratio 0.9 (1.1-2.2); Bilirubin,Direct 0.2 mg/dL (0.0-0.5); Bilirubin,Indirect 0.1 mg/dL (0.0-1.2); Bilirubin,Total 0.3 mg/dL (0.2-1.2); Total Protein 5.8 g/dL (6.0-8.3)
[2017-04-13] MEDS ORDERED: Lactulose Oral Soln 20 GM/30 ML UDC PO ONE ×2 (17:51→19:00)
[2017-04-14] MEDS: MetroNIDAZOLE 500 MG/100 ML 500 MG/100 ML BAG IVPB SCH ×2 (00:01→08:20)
[2017-04-14] MEDS: *HR* HYDROcodone/Acet 5/325 mg TABLET PO PRN (00:21)
[2017-04-14 03:24] LABS: Hematocrit 42.1 % (35.3-44.9); Hemoglobin 14.1 g/dL (11.5-15.4); Mean Corpuscular HGB Conc 33.5 g/dL (31.6-35.5); Mean Corpuscular Hemoglobin 30.8 pg (28.0-33.3); Mean Corpuscular Volume 91.9 fL (83.0-100.0); Mean Platelet Volume 9.7 fL (9.4-12.4); Platelet Count 241 K/mcL (140-400); Red Blood Count 4.58 M/mcL (3.82-4.97); Red Cell Distribution Width 13.6 % (11.5-14.5)
[2017-04-14 03:40] LABS: Alanine Aminotransferase 71 Units/L (0-55); Albumin 2.6 g/dL (3.5-5.0); Albumin/Globulin Ratio 0.9 (1.1-2.2); Alkaline Phosphatase 70 Units/L (38-126); Aspartate Amino Transferase 35 Units/L (5-34); BUN/Creatinine Ratio 34 (6-26); Bilirubin,Total 0.4 mg/dL (0.2-1.2); Blood Urea Nitrogen 29 mg/dL (7-20); Calcium 9.4 mg/dL (8.6-10.8); Carbon Dioxide 28 mEq/L (19-29); Chloride 100 mEq/L (98-109); Globulin 2.9 g/dL (2.4-3.5); Glucose 97 mg/dL (70-99); Osmolality,Calculated 284 (280-300); Potassium 4.4 mEq/L (3.5-4.5); Sodium 134 mEq/L (136-145); Total Protein 5.5 g/dL (6.0-8.3); eGFR For African Americans > 60 (> 60); eGFR For Non-African Americans > 60 (> 60)
[2017-04-14] MEDS: Acetylcysteine 10% 2 ML INHSOL IH SCH ×6 (03:40→23:46)
[2017-04-14] MEDS: Ipratropium/Albuterol Neb 3 ML IH SCH ×4 (03:40→23:46)
[2017-04-14 03:55] LABS: Lymphocytes # 1.5 K/mcL (0.6-4.6); Neutrophils # 9.8 K/mcL (1.6-8.9); Platelet Estimate Normal (Normal)
[2017-04-14] MEDS: *HR* Heparin 5,000 UNIT/ML VIAL SQ SCH ×2 (05:25→17:26)
[2017-04-14] MEDS: Nicotine 7 MG PATCH.TD24 TD SCH (08:17)
[2017-04-14] MEDS: Lisinopril 20 MG TABLET PO SCH (08:18)
[2017-04-14] MEDS: Cholecalciferol (D-3) 1,000 UNIT TABLET PO SCH (08:18)
[2017-04-14] MEDS: Famotidine 20 MG TABLET PO SCH (08:18)
[2017-04-14] MEDS: amLODIPine 5 MG TABLET PO SCH (08:18)
[2017-04-14] MEDS: Furosemide 20 MG TABLET PO SCH (08:18)
[2017-04-14] MEDS: Sennosides/Docusate Sodium TABLET PO SCH ×2 (08:18→20:07)
[2017-04-14] MEDS: predniSONE 20 MG TABLET PO SCH (08:19)
[2017-04-14] MEDS: Isosorbide MONOnitrate (24 HR) 30 MG TAB.ER.24H PO SCH (08:20)
[2017-04-14] MEDS: Ondansetron 4 MG/2 ML VIAL IVP PRN (09:58)
--- NOTE | 2017-04-14 12:12 | Internal Med Progress Note ---
<Emerson Aguilar - Last Filed: 04/14/17 16:27> Date of Encounter: 04/14/17 Time of Encounter: 11:34 - Assessment and plan (1) Acute exacerbation of chronic obstructive airways disease Current Visit: Yes Status: Acute Assessment and plan: Symptoms resolved. Patient currently in no acute distress, lungs clear to auscultation, patient maintaining oxygen saturations greater than 94% on room air. - Continue monitoring inpatient stay, continue home inhalers (2) Odynophagia Current Visit: Yes Status: Acute Assessment and plan: Patient continues to complain of pain with swallowing, dysphagia and chest discomfort. Cardiac evaluation with no acute changes. EKG continues to show left bundle branch block, cardiac enzymes without any significant elevation. Patient complains of difficulty swallowing progressive dysphagia. Patient was evaluated by speech therapy who recommended esophagram. - Oral contrast allergy. Plan: - Gastroenterology consulted, EGD possible tomorrow, nothing by mouth overnight - Plan discussed with family, patient and nursing staff. (3) CKD (chronic kidney disease), stage III Current Visit: No Status: Acute Assessment and plan: Stable Will continue to monitor (4) Tobacco abuse Current Visit: No Status: Chronic Assessment and plan: Patient reports having 47 year smoking history of 0.5 ppd. Has not been smoking recently due to shortness of breath. Patient does describe interest in smoking cessation Continue nicotine patch Patient will require nicotine patches upon discharge (5) HTN (hypertension) Current Visit: No Status: Chronic Assessment and plan: Blood pressure has been stable Continue home medications. Qualifiers: Hypertension type: essential hypertension Qualified Code(s): I10 - Essential (primary) hypertension (6) HLD (hyperlipidemia) Current Visit: No Status: Acute Assessment and plan: Per patient history. Stable. Qualifiers: Qualified Code(s): E78.5 - Hyperlipidemia, unspecified (7) GERD (gastroesophageal reflux disease) Current Visit: Yes Status: Acute Assessment and plan: Patient has complaints of chest discomfort, difficulty with swallowing. - IV Protonix 40 daily while nothing by mouth, switched to oral after procedure tomorrow. Qualifiers: Esophagitis presence: esophagitis presence not specified Qualified Code(s) : K21.9 - Gastro-esophageal reflux disease without esophagitis (8) DVT prophylaxis Current Visit: Yes Status: Acute Assessment and plan: 5000 units heparin subcutaneous twice a day - Subjective Interval history: Mrs. Angulo 81-year-old female has been seen in the patient bedside this morning. She denies any nausea or vomiting at this time but did have an episode this morning. She also states that she has had chest pain rating to her left shoulder which she said is been recurrent the same as previous but just feels that these symptoms are more frequent in nature. She denies any shortness of breath feels that her shortness of breath is improved and now tolerating room air without any distress or discomforts. She denies any palpitations, abdominal discomfort abdominal pain and difficulty with urination and has had a bowel movement without any discomfort or difficulty. She has no other concerns or complaints at this time. - Constitutional Vitals: Temp Pulse Resp BP Pulse Ox 97.4 F L 75 16 183/91 94 04/14/17 06:39 04/14/17 06:39 04/14/17 10:57 04/14/17 06:39 04/14/17 10:57 General appearance: Present: cooperative, mild distress, A&O X 3, pleasant, answers questions appropriately Exam: General: Patient alert, awake, oriented 3, interactive, in no acute distress HEENT: Normocephalic, atraumatic, pupils equal reactive to light, nasal cavity patent and open septum median position, oral mucosa moist, neck supple trachea midline no palpable lymphadenopathy, no thyromegaly. Chest: Symmetric bilateral correlating with respiratory effort, effort nonlabored. Cardiac: Regular rate and rhythm, positive S1 and S2. no bruits appreciated bilateral carotids, Radial pulses 2+ bilateral, posterior tibial and dorsal pedal pulses 2+ bilateral. Respiratory: Clear to auscultation all lung poe Abdomen: Soft, nontender, positive bowel sounds, no palpable masses appreciated on examination Extremities: Symmetric bilateral, bilateral lower extremities without erythema or edema patient moving all 4 extremities spontaneously. Neurologic: No focal deficits appreciated on examination. Face symmetric, muscle strength symmetric bilateral upper and lower extremities. Internal Medicine: Result - Labs CBC & Chem 7: 04/14/17 02:38 04/14/17 02:38 Labs: Short CBC 04/14/17 Range/Units 02:38 WBC 12.3 H (4.3-11.1) K/mcL Hgb 14.1 (11.5-15.4) g/dL Hct 42.1 (35.3-44.9) % Plt Count 241 (140-400) K/mcL Neutrophils # 9.8 H (1.6-8.9) K/mcL BMP 04/14/17 02:38 Sodium 134 L Potassium 4.4 Chloride 100 Carbon Dioxide 28 BUN 29 H Creatinine 0.86 Glucose 97 Calcium 9.4 Cardiac Enzymes 04/13/17 04/14/17 Range/Units 13:46 11:04 Troponin I 0.01 0.02 (0-0.03) ng/mL Liver Function 04/13/17 04/14/17 Range/Units 13:49 02:38 Total Bilirubin 0.3 0.4 (0.2-1.2) mg/dL Direct Bilirubin 0.2 (0.0-0.5) mg/dL AST 38 H 35 H (5-34) Units/L ALT 76 H 71 H (0-55) Units/L Alkaline Phosphatase 79 70 (38-126) Units/L Albumin 2.8 L 2.6 L (3.5-5.0) g/dL - ABG Interpretation ABG results: PT/INR, D-dimer PT 12.3 Seconds (9.4-12.1) H 04/13/17 13:46 Consult Discharge Plan - Plan Referrals: Mercy Jefferson DO [Partnered Physician] - 04/15/17 1:30 pm Pranav Harris DO [Primary Care Provider] - 04/28/17 7:45 am <Cuauhtemoc Loving H - Last Filed: 04/14/17 17:10> Date of Encounter: 04/14/17 - Constitutional Vitals: Temp Pulse Resp BP Pulse Ox 98.5 F 71 15 108/57 93 04/14/17 15:08 04/14/17 15:08 04/14/17 15:08 04/14/17 15:08 04/14/17 15:08 Internal Medicine: Result - Labs CBC & Chem 7: 04/14/17 02:38 04/14/17 02:38 Labs: Short CBC 04/14/17 Range/Units 02:38 WBC 12.3 H (4.3-11.1) K/mcL Hgb 14.1 (11.5-15.4) g/dL Hct 42.1 (35.3-44.9) % Plt Count 241 (140-400) K/mcL Neutrophils # 9.8 H (1.6-8.9) K/mcL BMP 04/14/17 02:38 Sodium 134 L Potassium 4.4 Chloride 100 Carbon Dioxide 28 BUN 29 H Creatinine 0.86 Glucose 97 Calcium 9.4 Cardiac Enzymes 04/14/17 Range/Units 11:04 Troponin I 0.02 (0-0.03) ng/mL Liver Function 04/14/17 Range/Units 02:38 Total Bilirubin 0.4 (0.2-1.2) mg/dL AST 35 H (5-34) Units/L ALT 71 H (0-55) Units/L Alkaline Phosphatase 70 (38-126) Units/L Albumin 2.6 L (3.5-5.0) g/dL - ABG Interpretation ABG results: PT/INR, D-dimer PT 12.3 Seconds (9.4-12.1) H 04/13/17 13:46 - Attending Attestation Acute COPD exacerbation secondary to acute bacterial bronchitis Continue prednisone taper Was treated for possible acute diverticulitis/mild difficult to be evidenced on the prior CT scan, Complete 7 days total of ciprofloxacin and Flagyl Complained of odynophagia, consider possible esophagitis/fungal, call GI consult for possible endoscopy in the morning I examined this patient and my medical decision-making was reviewed with the Resident Physician. I agree with the documented findings, disposition and treatment plan as described except to the extent set forth below.
--- NOTE | 2017-04-14 15:37 | Electrocardiograph Report ---
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
--- NOTE | 2017-04-14 15:42 | Electrocardiograph Report ---
[place] [id number] Test Date: 2017-04-14 Pat Name: Juliet Angulo Department: 111 Room: 2NE25 Gender: F Process Pumper: [facility] : 1935 Requested By: Cuauhtemoc Loving Order Number: [id number] Reading MD: Conner Cleaning Measurements Intervals [place] Rate: 59 P: 79 AL: 154 QRS: -12 QRSD: 142 T: 153 QT: 430 QTc: 429 Interpretive Statements SINUS BRADYCARDIA WITH SINUS ARRHYTHMIA LEFT BUNDLE BRANCH BLOCK Electronically Signed On 04-14-2017 15:40:26 EST by Conner Cleaning
[2017-04-14] MEDS: metroNIDAZOLE 500 MG TABLET PO SCH ×2 (16:29→20:07)
[2017-04-15] MEDS: Acetylcysteine 10% 2 ML INHSOL IH SCH ×4 (04:03→15:48)
[2017-04-15] MEDS: Ipratropium/Albuterol Neb 3 ML IH SCH ×3 (04:03→15:47)
[2017-04-15 05:21] LABS: Basophils # 0.1 K/mcL (0.0-0.2); Basophils % 0.4 %; Eosinophils # 0.1 K/mcL (0.0-0.6); Eosinophils % 0.6 %; Hemoglobin 13.7 g/dL (11.5-15.4); Immature Granulocytes % 3.8 % (0-4); Lymphocytes # 2.6 K/mcL (0.6-4.6); Lymphocytes % 21.9 %; Mean Corpuscular HGB Conc 34.3 g/dL (31.6-35.5); Mean Corpuscular Hemoglobin 31.4 pg (28.0-33.3); Mean Corpuscular Volume 91.5 fL (83.0-100.0); Mean Platelet Volume 9.5 fL (9.4-12.4); Monocytes # 1.1 K/mcL (0.0-1.3); Monocytes % 9.3 %; Neutrophils # 7.7 K/mcL (1.6-8.9); Platelet Count 206 K/mcL (140-400); Red Blood Count 4.37 M/mcL (3.82-4.97); Red Cell Distribution Width 13.7 % (11.5-14.5)
[2017-04-15 05:37] LABS: Alanine Aminotransferase 66 Units/L (0-55); Albumin 2.5 g/dL (3.5-5.0); Alkaline Phosphatase 62 Units/L (38-126); Aspartate Amino Transferase 36 Units/L (5-34); BUN/Creatinine Ratio 28 (6-26); Bilirubin,Total 0.4 mg/dL (0.2-1.2); Blood Urea Nitrogen 26 mg/dL (7-20); Calcium 9.2 mg/dL (8.6-10.8); Carbon Dioxide 30 mEq/L (19-29); Chloride 100 mEq/L (98-109); Globulin 2.6 g/dL (2.4-3.5); Glucose 77 mg/dL (70-99); Osmolality,Calculated 284 (280-300); Potassium 4.5 mEq/L (3.5-4.5); Sodium 135 mEq/L (136-145); Total Protein 5.1 g/dL (6.0-8.3); eGFR For African Americans > 60 (> 60); eGFR For Non-African Americans 57 (> 60)
[2017-04-15] MEDS: *HR* Heparin 5,000 UNIT/ML VIAL SQ SCH ×2 (05:39→17:28)
[2017-04-15] MEDS ORDERED: Pantoprazole 40 MG VIAL IVP SCH (09:00)
[2017-04-15] MEDS: Isosorbide MONOnitrate (24 HR) 30 MG TAB.ER.24H PO SCH (10:11)
[2017-04-15] MEDS: amLODIPine 5 MG TABLET PO SCH (10:11)
--- NOTE | 2017-04-15 11:35 | Gastroenterology Consult Note ---
Date of Encounter: 04/15/17 Time of Encounter: 11:31 - Assessment and plan (1) Odynophagia Current Visit: Yes Status: Acute Assessment and plan: Patient has had difficulty and painful swallowing for the past year. This occurs with solids and liquids. Speech therapy, recommended esophagram but patient is allergic to iodinated contrast. Plan we will be to undergo EGD today. - Time Spent With Patient Total time spent is greater than 50% in coordination of care (as documented) at patient's floor/unit and/or counseling patient: GI History of Present Illness - Data of Consult Patient: new to practice Consult date: 04/14/17 Requesting Physician: Andrew Ramos - Consult Narrative Reason for consult: dysphasia History of present illness: Ms. Angulo is a 81 year old female was admitted to [facility] for COPD exacerbation. Patient states she has a history of painful, difficulty swallowing for the past year. This caused chest discomfort and patient underwent cardiac evaluation which did not show any acute changes. Consult was placed for evaluation of odynophagia. Patient states that she has pain with swallowing liquids, solids. The pain is sharp and located on the right side of the neck. She denies any nausea vomiting diarrhea. Patient denies having any workup in the past for this Past Med Surg Social Fam HX - Past Medical History Medical history: COPD, coronary artery disease, hyperlipidemia, hypertension, myocardial infarction Psychiatric history: no psych history - Past Surgical History Surgical History: appendectomy, cholecystectomy, hysterectomy - Social History Smoking Status: Current every day smoker Packs per day: 1 Smokeless Tobacco Status: No Alcohol use: none Drug use: none - Family History Father Living Status: Mother Living Status: Review of Systems: Constitutional: Denies fever, chills HEENT: Denies headache, vision changes, neck pain, sore throat, rhinorrhea. Reports difficulty swallowing and painful swallowing Heart: Denies chest pain palpitations Lungs: Denies shortness of breath cough Abdomen: Denies abdominal pain nausea vomiting diarrhea Back: Denies back pain Kidney: Denies dysuria, hematuria Skin: warm and dry Extremities: Denies swelling, pain Neuro: Denies numbness, and tingling - Constitutional Vitals: Temp Pulse Resp BP Pulse Ox 97.9 F 97 16 190/87 92 04/15/17 06:59 04/15/17 06:59 04/15/17 10:33 04/15/17 06:59 04/15/17 10:33 - Other Additional findings: General: without distress HEENT: Head atraumatic, normocephalic, EOMI, PERRL, neck nontender to palpation , absent lymphadenopathy, Moist Mucous Membranes, Heart: Regular rate and rhythm with no murmur Lungs: Clear to auscultation bilaterally Abdomen: Soft nontender, nondistended positive bowel sounds Skin: warm and dry Extremities: Absent pedal edema, Neuro: Alert and Oriented 3 Vascular: Pedal and radial pulses 2 out of 4 Results - Labs CBC & Chem 7: 04/15/17 04:34 04/15/17 04:34 Labs: Last Result Calcium 9.2 mg/dL (8.6-10.8) 04/15/17 04:34 Troponin I 0.02 ng/mL (0-0.03) 04/14/17 22:24 Entire Visit Hgb 13.7 g/dL (11.5-15.4) 04/15/17 04:34 Hct 40.0 % (35.3-44.9) 04/15/17 04:34 PT 12.3 Seconds (9.4-12.1) H 04/13/17 13:46 Total Bilirubin 0.4 mg/dL (0.2-1.2) 04/15/17 04:34 AST 36 Units/L (5-34) H 04/15/17 04:34 ALT 66 Units/L (0-55) H 04/15/17 04:34 Amylase 127 Units/L (25-125) H 04/13/17 13:49 Lipase 54 Units/L (8-78) 04/13/17 13:49 - ABG ABG results: PT/INR, D-dimer PT 12.3 Seconds (9.4-12.1) H 04/13/17 13:46 Consult Discharge Plan - Plan Referrals: Mercy Jefferson DO [Partnered Physician] - 04/15/17 1:30 pm Pranav Harris DO [Primary Care Provider] - 04/28/17 7:45 am
[2017-04-15] MEDS ORDERED: Tetracaine/Benzocaine/Butamben 200MG/SPRAY (100SPY/BOT) MM ONE (11:47)
[2017-04-15] MEDS ORDERED: Simethicone 40 MG/0.6 ML MLS IR ONE (11:47)
[2017-04-15] MEDS ORDERED: *HR* Midazolam HCl 5 MG/5 ML VIAL IVP ONE (11:49)
[2017-04-15] MEDS ORDERED: *HR* FentaNYL (PF) 100 MCG/2 ML VIAL ONE (11:51)
[2017-04-15] MEDS ORDERED: 0.9 % Sodium Chloride 1,000 ML IVC SCH (12:00)
[2017-04-15] MEDS: Sennosides/Docusate Sodium TABLET PO SCH (13:56)
[2017-04-15] MEDS: Nicotine 7 MG PATCH.TD24 TD SCH (14:26)
[2017-04-15] MEDS: Cholecalciferol (D-3) 1,000 UNIT TABLET PO SCH (14:27)
[2017-04-15] MEDS: Furosemide 20 MG TABLET PO SCH (14:27)
[2017-04-15] MEDS: Lisinopril 20 MG TABLET PO SCH (14:28)
[2017-04-15 15:25] VITALS: BP 112/68
--- NOTE | 2017-04-15 16:51 | Discharge Summary ---
Date of Encounter: 04/15/17 Time of Encounter: 11:00 - Discharge Medications Home Medications: ALPRAZolam [Xanax 0.5 MG Tablet] 0.5 mg PO BID PRN 10/15/15 [History] Atorvastatin [Lipitor] 40 mg PO HS 10/15/15 [History] Carvedilol [Coreg] 12.5 mg PO BID 10/15/15 [History] Cholecalciferol (D-3) [Vitamin D] 1,000 unit PO DAILY 10/15/15 [History] Clopidogrel [Plavix] 75 mg PO DAILY 10/15/15 [History] Furosemide [Lasix] 20 mg PO DAILY 10/15/15 [History] HYDROcodone/Acet 5/325 mg [[place] 5-325 mg] 1 tab PO BID PRN 10/15/15 [History] Isosorbide MONOnitrate (24 HR) [Imdur] 60 mg PO DAILY 10/15/15 [History] Lisinopril [Zestril] 20 mg PO DAILY 10/15/15 [History] Ranitidine HCl [Heartburn Relief] 150 mg PO DAILY 10/15/15 [History] amLODIPine [Norvasc] 5 mg PO DAILY 10/15/15 [History] Allergies/Adverse Reactions: 3 Allergy/AdvReac Type Severity Reaction Status Date / Time Benzonatate Allergy Confusion Verified 04/05/17 17:09 [From Mikala Montejo] Iodinated Contrast- Oral and AdvReac Mild See Verified 04/09/17 12:06 IV Dye Comments [Iodinated Contrast Media - IV Dye] codeine AdvReac Itching Verified 04/05/17 17:09 Procedures/tests Complete & Pending: Procedures Performed prior 72 hours Category Date Time Status ECG 12 lead ECG [ECG] Routine Y 04/13/17 12:36 Completed ECG 12 lead ECG [ECG] Routine Y 04/14/17 10:05 Completed Date of admission: 04/05/17 20:47 Primary care physician: Pranav Harris DO Consults: 04/13/17 17:52 Consult to Speech Therapy [CONS] Routine Comment: Evaluate, develop and implement POC Reason for Consult: "I feel like food gets stuck when I swallow", may need further imaging Call Completed: No 04/14/17 16:21 Consult to Gastroenterology [CONS] Routine Consulting Provider: Gastroenterology [place] Reason for Consult: odynophagia Call Completed: Yes - Patient Status Disposition: Home, Self-Care Condition: Fair - Discharge Instructions Follow Up With: Mercy Jefferson DO [Partnered Physician] - 04/15/17 1:30 pm Pranav Harris DO [Primary Care Provider] - 04/28/17 7:45 am Hospital course: Patient is a 81-year-old female with past medical history significant for COPD, CKD stage II, hypertension, hyperlipidemia, GERD and CAD with stent placement who presented to the ER on 04/05/17 with shortness of breath. She had been using CPAP at night and during the day with minimal relief. She has also tried her albuterol nebulizer with minimal relief. The ER chest x-ray showed no acute findings. She was wheezing on presentation and was given Solu-Medrol and bronchodilators. She has been admitted for further workup and evaluation. During patients hospital stay, her symptoms resolved after treatment for COPD exacerbation with DuoNebs and prednisone. 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 No further workup and patient to follow-up as an outpatient. - Time Spent with Patient Total time spent providing and/or coordinating discharge services: Less than 30 minutes - Constitutional Vitals: Temp Pulse Resp BP Pulse Ox 97.8 F 63 14 112/68 95 04/15/17 11:44 04/15/17 15:00 04/15/17 15:00 04/15/17 15:00 04/15/17 15:00 General appearance: Present: cooperative, mild distress, A&O X 3, pleasant, answers questions appropriately - Cardiovascular Cardiovascular exam: Present: RRR, +S1, +S2. Absent: diastolic murmur, gallop, rubs, systolic murmur
[2017-04-15] MEDS ORDERED: FLUARIX QUAD 2017-18 36MOS UP/PF 0.5 ML SYRINGE IM ONE (17:16)
== END 2017-04-15 18:35 | disposition home or self-care (01) | DRG 191 ==
LOC: 2NENU 17:07 → EMEROO 17:07 → 2NENU 19:00 → SUATTDRO 20:47
PROVIDERS: ADMIT Internal Medicine; ATTEND Hospitalist

== ENCOUNTER 2017-08-11 19:22 | Inpatient (IN) ==
[2017-08-11] MEDS ORDERED: methylPREDNISolone 125 MG/2 ML VIAL IVP ONE (19:27)
[2017-08-11] MEDS ORDERED: Ipratropium/Albuterol Neb 3 ML IH ONE (19:27)
[2017-08-11] MEDS ORDERED: Albuterol 2.5 MG/3 ML NEBULIZER IH ONE ×2 (19:34→20:59)
[2017-08-11] MEDS ORDERED: Albuterol 2.5 MG/3 ML NEBULIZER ONE (19:36)
[2017-08-11] MEDS ORDERED: Levofloxacin 750 MG/150 ML 750 MG/150 ML BAG IVPB ONE (19:42)
--- NOTE | 2017-08-11 20:09 | Emergency Department Note ---
Disposition Clinical Impression: Acute exacerbation of chronic obstructive airways disease Disposition: Admitted As Inpatient Condition: Fair Time of Disposition: 21:31 SOB HPI - General Chief Complaint: ED Shortness of Breath/Dyspnea Stated Complaint: Manoj Time Seen by Provider: 08/11/17 19:27 Source: EMS Mode of arrival: EMS Limitations: no limitations Nursing Notes Reviewed: Yes Vital Signs Reviewed: Yes - History of Present Illness 82-year-old female presents to the emergency department complaining of shortness of breath. She presents here via EMS in respiratory distress she does have history of COPD and has CPAP at home. She has never had be intubated for the exacerbations. She has had COPD exacerbations a past torsion always needed albuterol as well as BiPAP. Patient said he had no fevers or nausea or vomiting preceding this. She has not really had increased her does of breath until today this has been slow gradual onset she also is having cough for the last couple days as well. Patient otherwise has no complaints including no chest pain, headaches, blurry vision, neck pain, fever, chills, nausea, vomiting , back pain, abdominal pain, changes in bowel movement, pain with urination, pain or tingling going down the arms or legs or any generalized weakness. - Related Data Home Medications Medication Instructions Recorded Confirmed ALPRAZolam [Xanax 0.5 MG Tablet] 0.25 - 0.5 mg PO DAILY PRN 10/15/15 08/11/17 Atorvastatin [Lipitor] 40 mg PO HS 10/15/15 08/11/17 Cholecalciferol (D-3) [Vitamin D] 1,000 unit PO DAILY 10/15/15 08/11/17 Clopidogrel [Plavix] 75 mg PO DAILY 10/15/15 08/11/17 Furosemide [Lasix] 20 mg PO Q48H 10/15/15 08/11/17 HYDROcodone/Acet 5/325 mg [[place] 0.5 - 1 tab PO BID PRN 10/15/15 08/11/17 5-325 mg] Lisinopril [Zestril] 20 mg PO DAILY 10/15/15 08/11/17 Ranitidine HCl [Heartburn Relief] 150 mg PO DAILY 10/15/15 08/11/17 amLODIPine [Norvasc] 5 mg PO DAILY 10/15/15 08/11/17 Albuterol Sulfate [Proair Hfa] 2 puff IH Q4-6H PRN 08/11/17 08/11/17 Carvedilol 12.5 mg PO BID 08/11/17 08/11/17 Fluticasone/Salmeterol [Advair Hfa 2 puff IH BID 08/11/17 08/11/17 115-21 Mcg Inhaler] Gabapentin [Neurontin] 100 mg PO AD PRN 08/11/17 08/11/17 Isosorbide MONOnitrate (24 HR) 60 mg PO DAILY 08/11/17 08/11/17 [Imdur] Nicotine Patch [Nicoderm] 21 mg TD DAILY 08/11/17 08/11/17 Simethicone [Gas-X] 80 mg PO ACHS PRN 08/11/17 08/11/17 Allergies Allergy/AdvReac Type Severity Reaction Status Date / Time Benzonatate Allergy Confusion Verified 08/11/17 19:32 [From Mikala Montejo] Iodinated Contrast- Oral and AdvReac Mild See Verified 08/11/17 19:32 IV Dye Comments [Iodinated Contrast Media - IV Dye] codeine AdvReac Itching Verified 08/11/17 19:32 Review of Systems: 10 point review of systems done and negative unless otherwise stated in the history of present illness. All systems ED: reviewed and negative except as stated. Review of Systems: As Per HPI Past Medical History - Past Medical History Attestation: Yes The following information was validated with the patient. Source: patient Medical history: Reports: CHF, COPD, coronary artery disease, hyperlipidemia, hypertension, myocardial infarction Surgical history: Reports: appendectomy, cholecystectomy, hysterectomy, orthopedic, other Psychiatric history: Reports: no psych history - Social History Smoking Status: Former smoker Smokeless Tobacco Status: No Alcohol use: Reports: none Drug use: Reports: none Physical Exam - General Limitations: no limitations General appearance: alert - Eye Eye exam: Present: normal appearance, PERRL, EOMI - ENT ENT exam: normal exam, normal oropharynx, mucous membranes moist - Neck Neck exam: Present: normal inspection, full ROM, trachea midline - Chest Chest inspection: Present: normal inspection, symmetric chest wall rise - Respiratory Respiratory exam: Present: respiratory distress (Mild), wheezes (Bilaterally mainly in the bases), accessory muscle use, prolonged expiratory phase. Absent : stridor - Cardiovascular Cardiovascular exam: Present: regular rate, normal rhythm, normal heart sounds - Abdominal Exam Abdominal exam: Present: soft, Non-Tender. Absent: tenderness, distention, guarding, rebound, rigidity - Extremities Exam Extremities exam: Present: normal inspection, full ROM, normal capillary refill. Absent: tenderness, pedal edema - Expanded Lower Extremity Exam Neurovascular/Tendon exam: Present: normal capillary refill. Absent: pulse deficit, motor deficit, sensory deficit, tendon deficit - Back Exam Back exam: Present: normal inspection, full ROM. Absent: tenderness, CVA tenderness (R), CVA tenderness (L) - Neurological Exam Neurological exam: Present: alert, oriented X3 - Skin Skin exam: Present: warm, dry, intact, normal color Course Course Narrative: 82-year-old female presented to the emergency department in respiratory distress we will mealy pace patient on BiPAP as well as getting her DuoNeb's and albuterol as well as Solu-Medrol. We will order CMP and lactate as well as blood cultures. We will start patient on Levaquin. Most likely disposition will be admission. Well-seated chest x-ray Vital Signs Temperature 97.1 F L 08/11/17 19:29 Pulse Rate 83 08/11/17 19:29 Respiratory Rate 22 08/11/17 19:29 Blood Pressure 195/111 08/11/17 19:29 O2 Sat by Pulse Oximetry 96 08/11/17 19:29 Temperature 97.1 F L 08/11/17 19:29 Pulse Rate 72 08/11/17 21:30 Respiratory Rate 16 08/11/17 21:30 Blood Pressure 170/93 08/11/17 21:30 O2 Sat by Pulse Oximetry 97 08/11/17 21:30 Oxygen Delivery Oxygen Delivery CPAP Mask O2 Shortness of Breath/Dyspnea - [facility] Narrative Medical decision making narrative: 82-year-old female presented him or to department with COPD exacerbation. Patient does have history of COPD still redly unabated we did give her breathing treatments including albuterol and do an assisted help her greatly she was also placed on BiPAP and improved greatly her wheezes did worsen once we used his CPAP which is expected. Chest x-ray had no acute findings. We did start patient on Levaquin. All other labs were normal spoke with Dr. Rodrigez who agreed to admit the patient to their service patient is admitted in stable condition. Chest X-Ray 08/11/17 19:28 IMPRESSION: 1. No acute process. D/ / Guilherme Rodgers MD / Guilherme Rodgers MD Interpreting Provider: Guilherme Rodgers MD - Medical Records Medical records reviewed: Yes I reviewed the patient's medical records. - Lab Data Lab results reviewed: Yes I reviewed the patient's lab results. Result diagrams: 08/11/17 21:03 08/11/17 20:10 Lab Results 08/11/17 08/11/17 Range/Units 20:10 21:03 WBC 7.6 (4.3-11.1) K/mcL RBC 4.31 (3.82-4.97) M/mcL Hgb 13.2 (11.5-15.4) g/dL Hct 40.4 (35.3-44.9) % MCV 93.7 (83.0-100.0) fL MCH 30.6 (28.0-33.3) pg MCHC 32.7 (31.6-35.5) g/dL RDW 13.2 (11.5-14.5) % Plt Count 212 (140-400) K/mcL MPV 9.7 (9.4-12.4) fL Immature Gran % 0.4 (0-4) % Seg Neutrophils % 81.1 % Lymphocytes % 12.4 % Monocytes % 4.0 % Eosinophils % 1.7 % Basophils % 0.4 % Neutrophils # 6.2 (1.6-8.9) K/mcL Lymphocytes # 0.9 (0.6-4.6) K/mcL Monocytes # 0.3 (0.0-1.3) K/mcL Eosinophils # 0.1 (0.0-0.6) K/mcL Basophils # 0.0 (0.0-0.2) K/mcL Immature Plt Fraction 4.1 (1.1-6.1) % Sodium 136 (136-145) mEq/L Potassium 4.0 (3.5-5.1) mEq/L Chloride 103 (98-107) mEq/L Carbon Dioxide 27 (23-29) mEq/L BUN 17 (8-23) mg/dL Creatinine 1.32 H (0.60-1.20) mg/dL Est GFR ( Amer) 47 L (> 60) Est GFR (Non-Af Amer) 39 L (> 60) BUN/Creatinine Ratio 13 (6-26) Glucose 116 H (70-105) mg/dL Calculated Osmolality 285 (280-300) Calcium 10.4 H (8.6-10.3) mg/dL - Radiology Data Radiology results reviewed: Yes I reviewed the patient's radiology results. - EKG Data EKG attestation: Yes I reviewed and interpreted this EKG. EKG results narrative: EKG done at 1927 review myself and the attending shows sinus rhythm at a rate of 72, NE interval 128, QRS 140, QTC 421 with a leftward axis there is no acute ST changes no acute T-wave changes no other signs of ischemia there is a left bundle is old. Otherwise there is no acute findings. Attestation Statement - Attestation Attestation: I examined this patient and my medical decision-making was reviewed with the Resident Physician. I agree with the documented findings, disposition and treatment plan as described except to the extent set forth below. Patient presents with COPD exacerbation. Symptoms replicated prior exacerbations, gradually progressive over the course of about 3 days. She has cough, no fever. No chest pain. Again, nothing different from her usual COPD flares. She arrives to [facility], with wheezing throughout both lung poe, somewhat diminished breath sounds, tachypnea, saturations in the low 90s. No improvement with the DuoNeb on the way here from paramedics. She is placed on BiPAP, given 3 duo nebs and 3 albuterol's. At that point, wheezing was louder, respiratory rate is slowed, she was feeling more comfortable. With additional albuterol, she continued to improve, but was still wheezing and on BiPAP. Chest x-ray did not show an infiltrate. There is nothing her presentation and was suggest PE, ischemia, or anything other than a COPD exacerbation. Hospitalist has been contacted for admission and accepted the patient.
[2017-08-11 20:48] LABS: Calcium 10.4 mg/dL (8.6-10.3)
[2017-08-11 21:38] LABS: Basophils % 0.4 %; Eosinophils # 0.1 K/mcL (0.0-0.6); Eosinophils % 1.7 %; Hematocrit 40.4 % (35.3-44.9); Hemoglobin 13.2 g/dL (11.5-15.4); Immature Granulocytes % 0.4 % (0-4); Immature Platelets 4.1 % (1.1-6.1); Lymphocytes # 0.9 K/mcL (0.6-4.6); Lymphocytes % 12.4 %; Mean Corpuscular HGB Conc 32.7 g/dL (31.6-35.5); Mean Corpuscular Hemoglobin 30.6 pg (28.0-33.3); Mean Corpuscular Volume 93.7 fL (83.0-100.0); Mean Platelet Volume 9.7 fL (9.4-12.4); Monocytes # 0.3 K/mcL (0.0-1.3); Neutrophils # 6.2 K/mcL (1.6-8.9); Platelet Count 212 K/mcL (140-400); Red Blood Count 4.31 M/mcL (3.82-4.97); Red Cell Distribution Width 13.2 % (11.5-14.5); Segmented Neutrophils % 81.1 %
--- NOTE | 2017-08-11 22:06 | Internal Med History&Physical ---
Date of Encounter: 08/11/17 Time of Encounter: 22:01 Assessment and Plan (1) Acute exacerbation of chronic obstructive airways disease Current visit: Yes Status: Acute Patient was not on oxygen at home, now required BiPAP, meet criteria for acute hypoxemic respiratory failure. From COPD exacerbation we will continue IV Solu- Medrol and antibiotics and nebulizer, continue BiPAP (2) ARF (acute renal failure) Current visit: Yes Status: Acute Patient creatinine baseline 0.8 up to 1.32 acute renal failure from dehydration we will give IV fluids, Qualifiers: Acute renal failure type: with other specified pathological lesion Qualified Code(s): N17.8 - Other acute kidney failure (3) ZIYAD (obstructive sleep apnea) Current visit: Yes Status: Chronic CPAP at night (4) CAD (coronary artery disease) Current visit: Yes Status: Chronic Patient has history is CAD status post stents, continue aspirin and statin and the Plavix Qualifiers: Qualified Code(s): I25.10 - Atherosclerotic heart disease of [place] coronary artery without angina pectoris (5) GERD (gastroesophageal reflux disease) Current visit: Yes Status: Chronic Qualifiers: Esophagitis presence: esophagitis presence not specified Qualified Code(s) : K21.9 - Gastro-esophageal reflux disease without esophagitis (6) HLD (hyperlipidemia) Current visit: Yes Status: Chronic Qualifiers: Qualified Code(s): E78.5 - Hyperlipidemia, unspecified (7) HTN (hypertension) Current visit: Yes Status: Chronic Qualifiers: Hypertension type: essential hypertension Qualified Code(s): I10 - Essential (primary) hypertension (8) Tobacco abuse Current visit: No Status: Chronic Quit his smoking few months ago Internal Medicine - H&P: HPI Chief complaint: SOB Admitted From: Home Plans for Post Hospital Care: Home History of present illness: Ms. Angulo is a 82 year old female history of COPD not on home O2, hypertension hyperlipidemia CAD status post stents history of diastolic CHF presented to emergency room for shortness of breath. Patient has history of COPD not on home O2, she just quit his smoking few months ago, she developed shortness of breath and productive cough with clear sputum for few days, denies fever or chest pain. SOB progressively got worse. In the emergency room she was found a diffuse bilateral wheezing placed on BiPAP, received IV Solu-Medrol. Chest x- ray is negative for pneumonia, normal WBC, lab shows acute renal failure creatinine from 0.8 up to 1.32. Patient is going to be admitted for acute respiratory failure with hypoxia, from COPD exacerbation. Patient does have diastolic dysfunction, but no leg swellings will check BNP. She also has sleep apnea on CPAP at night. I discussed the code status, she wants to be full code okay for intubation Past Med Surg Social Fam HX - Past Medical History Medical history: CHF, COPD, coronary artery disease, hyperlipidemia, hypertension, myocardial infarction Psychiatric history: no psych history - Past Surgical History Surgical History: appendectomy, cholecystectomy, hysterectomy, orthopedic, other - Social History Smoking Status: Former smoker Smokeless Tobacco Status: No Alcohol use: none Drug use: none - Family History Father Living Status: Mother Living Status: Internal Medicine - H&P: Meds ALPRAZolam [Xanax 0.5 MG Tablet] 0.25 - 0.5 mg PO DAILY PRN 10/15/15 [History] Atorvastatin [Lipitor] 40 mg PO HS 10/15/15 [History] Cholecalciferol (D-3) [Vitamin D] 1,000 unit PO DAILY 10/15/15 [History] Clopidogrel [Plavix] 75 mg PO DAILY 10/15/15 [History] Furosemide [Lasix] 20 mg PO Q48H 10/15/15 [History] HYDROcodone/Acet 5/325 mg [[place] 5-325 mg] 0.5 - 1 tab PO BID PRN 10/15/15 [ History] Lisinopril [Zestril] 20 mg PO DAILY 10/15/15 [History] Ranitidine HCl [Heartburn Relief] 150 mg PO DAILY 10/15/15 [History] amLODIPine [Norvasc] 5 mg PO DAILY 10/15/15 [History] Albuterol Sulfate [Proair Hfa] 2 puff IH Q4-6H PRN 08/11/17 [History] Carvedilol 12.5 mg PO BID 08/11/17 [History] Fluticasone/Salmeterol [Advair Hfa 115-21 Mcg Inhaler] 2 puff IH BID 08/11/17 [ History] Gabapentin [Neurontin] 100 mg PO AD PRN 08/11/17 [History] Isosorbide MONOnitrate (24 HR) [Imdur] 60 mg PO DAILY 08/11/17 [History] Nicotine Patch [Nicoderm] 21 mg TD DAILY 08/11/17 [History] Simethicone [Gas-X] 80 mg PO ACHS PRN 08/11/17 [History] 3 Allergy/AdvReac Type Severity Reaction Status Date / Time Benzonatate Allergy Confusion Verified 08/11/17 19:32 [From Tesmatt Montejo] Iodinated Contrast- Oral and AdvReac Mild See Verified 08/11/17 19:32 IV Dye Comments [Iodinated Contrast Media - IV Dye] codeine AdvReac Itching Verified 08/11/17 19:32 All Systems PM: A 10-system review of systems was performed and is negative for pertinent findings except as documented above in the HPI. - Constitutional Vitals: Temp Pulse Resp BP Pulse Ox 97.1 F L 72 16 170/93 97 08/11/17 19:29 08/11/17 21:30 08/11/17 21:30 08/11/17 21:30 08/11/17 21:30 General appearance: Present: mild distress, A&O X 3 Exam: CONSTITUTIONAL: Patient appears as an age appropriate female well developed, in no acute distress. EYES Clear sclerae, bilateral pupils are equal, reactive to light and accommodation. Extraocular movements are intact RESPIRATORY: No accessory muscle use, bilateral wheezing, no crackles/rales. CARDIOVASCULAR: Regular heart rate, normal S1 and S2, no murmurs GASTROINTESTINAL: bowel sounds present, soft, no tenderness. No hepatosplenomegaly. No bilateral CVA tenderness MUSCULOSKELETAL: Joints in normal range of motion, no clubbing, no edema, no cyanosis. Bilateral peripheral pulses 2+ LYMPHATIC no lymphadenopathy in neck, groin and axilla bilaterally, no thyromegaly. NEUROLOGIC: CN II to XII are grossly intact, no focal neurological deficit. Deep tendon reflexes 2+ bilaterally. Normal light touch sensation to upper and lower extremity PSYCHIATRIC: Oriented x3, with good insight, mood is euthymic. No hallucinations or delusions. SKIN: Skin warm and dry, no rashes, no open wound. Internal Med - H&P Results - Labs CBC & Chem 7: 08/11/17 21:03 08/11/17 20:10
[2017-08-11] MEDS ORDERED: Gabapentin 100 MG CAPSULE PO PRN (22:15)
[2017-08-11] MEDS ORDERED: Naloxone 0.4 MG/ML INJ IVP PRN (22:16)
[2017-08-11] MEDS: 0.9 % Sodium Chloride 1,000 ML IVC SCH (23:00)
[2017-08-11] MEDS: Ipratropium/Albuterol Neb 3 ML IH SCH (23:48)
[2017-08-12] MEDS: Famotidine 20 MG TABLET PO SCH ×2 (00:07→08:33)
[2017-08-12] MEDS: *HR* Heparin 5,000 UNIT/ML VIAL SQ SCH ×3 (00:08→16:28)
[2017-08-12] MEDS: methylPREDNISolone 125 MG/2 ML VIAL IVP SCH ×4 (00:08→16:28)
[2017-08-12] MEDS: Ipratropium/Albuterol Neb 3 ML IH SCH ×5 (03:50→19:47)
[2017-08-12 04:46] LABS: Bilirubin,Urine Negative (Negative); Blood,Urine Moderate (Negative); Clarity,Urine Clear (Clear); Color,Urine Yellow (Yellow); Glucose,Urine (UA) Normal (Normal); Ketones,Urine Negative (Negative); Leukocyte Esterase,Urine Negative (Negative); Nitrite,Urine Negative (Negative); PH,Urine 5.5 pH Units (5.0-8.0); Protein,Urine 30 mg/dL (Neg-Trace); Specific Gravity,Urine 1.026 (1.010-1.025); Urobilinogen,Urine Normal (Normal)
[2017-08-12 04:51] LABS: Bacteria,Urine None Seen per hpf (None-Few); Hyaline Casts,Urine None Seen per lpf (None-Few); Squamous Epithelial Cell,Urine Many per lpf (None-Few); WBC,Urine 0-3 per hpf (0-3)
[2017-08-12 05:02] LABS: Basophils % 0.2 %; Hematocrit 40.9 % (35.3-44.9); Hemoglobin 13.9 g/dL (11.5-15.4); Immature Granulocytes % 0.4 % (0-4); Lymphocytes # 0.5 K/mcL (0.6-4.6); Lymphocytes % 11.3 %; Mean Corpuscular Hemoglobin 30.8 pg (28.0-33.3); Mean Corpuscular Volume 90.5 fL (83.0-100.0); Monocytes # 0.1 K/mcL (0.0-1.3); Monocytes % 1.3 %; Neutrophils # 4.1 K/mcL (1.6-8.9); Platelet Count 209 K/mcL (140-400); Red Blood Count 4.52 M/mcL (3.82-4.97); Red Cell Distribution Width 13.2 % (11.5-14.5); Segmented Neutrophils % 86.8 %
[2017-08-12 05:21] LABS: BUN/Creatinine Ratio 20 (6-26); Blood Urea Nitrogen 20 mg/dL (8-23); Calcium 10.7 mg/dL (8.6-10.3); Carbon Dioxide 27 mEq/L (23-29); Chloride 102 mEq/L (98-107); Chol/HDL Ratio 2.3 (0-4.9); Cholesterol 174 mg/dL (< 200); Glucose 133 mg/dL (70-105); HDL Cholesterol 77 mg/dL (40-59); LDL Cholesterol,Calculated 91 mg/dL (0-99); Osmolality,Calculated 289 (280-300); Potassium 4.1 mEq/L (3.5-5.1); Sodium 137 mEq/L (136-145); Triglycerides 32 mg/dL (< 150); eGFR For African Americans > 60 (> 60); eGFR For Non-African Americans 52 (> 60)
[2017-08-12] MEDS: Lisinopril 20 MG TABLET PO SCH (08:31)
[2017-08-12] MEDS: Cholecalciferol (D-3) 1,000 UNIT TABLET PO SCH (08:31)
[2017-08-12] MEDS: Isosorbide MONOnitrate (24 HR) 60 MG TAB.ER.24H PO SCH (08:32)
[2017-08-12] MEDS: amLODIPine 5 MG TABLET PO SCH (08:32)
[2017-08-12] MEDS: Nicotine 21 MG PATCH.TD24 TD SCH (08:36)
--- NOTE | 2017-08-12 10:13 | Internal Med Progress Note ---
<Jeremy Mckinley - Last Filed: 08/12/17 10:11> Date of Encounter: 08/12/17 Time of Encounter: 09:15 - Assessment and plan (1) Acute respiratory failure with hypoxia Current Visit: Yes Status: Acute Assessment and plan: Likely due to acute exacerbation of COPD Patient reports significant dyspnea and productive cough She also reports pleuritic chest pain Vitals stable except for requiring supplemental oxygen for comfort and to maintain saturation Significant wheezing on auscultation Chest x-ray negative Patient uses CPAP (without oxygen) at night for ZIYAD We will obtain d-dimer If negative no further workup If positive consider possibility of PE Patient allergic to IV contrast, so consider Dopplers, echo, and/or V/Q Continue supplemental oxygen as needed, wean as tolerated Continue CPAP at night Continue IV steroids at 60 mg every 6 hours Solu-Medrol Continue breathing treatments of albuterol and ipratropium Continue Levaquin Will obtain CT to better visualize for intrinsic lung pathology (2) Acute exacerbation of chronic obstructive airways disease Current Visit: Yes Status: Acute Assessment and plan: Plan the above (3) Acute kidney injury Current Visit: Yes Status: Acute Assessment and plan: Patient has baseline creatinine 0.8 which was elevated at 1.325 admission This was likely due to dehydration After receiving IV fluids patient's serum creatinine came down to 1.02 We will continue to monitor renal function with daily labs Avoid potentially nephrotoxic agents (4) CAD (coronary artery disease) Current Visit: Yes Status: Chronic Assessment and plan: History of coronary artery disease A/P stents Continue aspirin, statin, and Plavix Qualifiers: Qualified Code(s): I25.10 - Atherosclerotic heart disease of [place] coronary artery without angina pectoris (5) ZIYAD (obstructive sleep apnea) Current Visit: Yes Status: Chronic Assessment and plan: Patient has history of obstructive sleep apnea and uses CPAP at night Continue CPAP with supplemental oxygen if needed (6) GERD (gastroesophageal reflux disease) Current Visit: Yes Status: Chronic Assessment and plan: Stable continue home medication Qualifiers: Esophagitis presence: esophagitis presence not specified Qualified Code(s) : K21.9 - Gastro-esophageal reflux disease without esophagitis (7) HLD (hyperlipidemia) Current Visit: Yes Status: Chronic Assessment and plan: Stable, continue home medication Qualifiers: Qualified Code(s): E78.5 - Hyperlipidemia, unspecified (8) HTN (hypertension) Current Visit: Yes Status: Chronic Assessment and plan: Blood pressure slightly elevated in the 140s over 80s Continue home medications Continue to monitor Qualifiers: Hypertension type: essential hypertension Qualified Code(s): I10 - Essential (primary) hypertension (9) Tobacco abuse Current Visit: No Status: Chronic Assessment and plan: Patient reports having quit smoking 2 months ago Continues to use nicotine patch persistence of smoking cessation Continue nicotine patch - Subjective Interval history: Patient reports continuing to have some dyspnea and feels better with increased oxygen. She reports that she is continuing to have a dry cough, but that she has a sharp pain in the center of her chest when she coughs. She also reports having this same pain when she takes a deep breath. She denies having any fevers or chills. She does report having some pain the goes down her left arm and between her shoulder blades that has been present for a month or so. - Constitutional Vitals: Temp Pulse Resp BP Pulse Ox 97.6 F 71 36 142/75 99 08/12/17 07:10 08/12/17 07:10 08/12/17 07:55 08/12/17 07:10 08/12/17 07:55 General appearance: Present: mild distress, A&O X 3, answers questions appropriately Exam: General: Cooperative, pleasant, mild distress, alert and oriented 3, answers questions appropriately HEENT: Normocephalic, atraumatic, Conjunctiva pink, sclera anicteric, oral mucosa moist Respiratory: No accessory muscle usage, significant diffuse wheeze present Cardiovascular: Regular rate and rhythm, S1 and S2 present, no murmurs/rubs/ gallops/clicks appreciated GI/abdominal: Nondistended, nontender, soft, normal bowel sounds, no peritoneal signs Extremities: No calf tenderness, noncyanotic, no pedal edema appreciated, warm, lower extremity pulses palpable and symmetrical Neurological: Alert and oriented 3, no facial droop, no focal deficits Skin: Dry, intact, normal color Internal Medicine: Result - Labs CBC & Chem 7: 08/12/17 03:49 08/12/17 03:49 Labs: Short CBC 08/12/17 Range/Units 03:49 WBC 4.7 (4.3-11.1) K/mcL Hgb 13.9 (11.5-15.4) g/dL Hct 40.9 (35.3-44.9) % Plt Count 209 (140-400) K/mcL Neutrophils # 4.1 (1.6-8.9) K/mcL BMP 08/12/17 03:49 Sodium 137 Potassium 4.1 Chloride 102 Carbon Dioxide 27 BUN 20 Creatinine 1.02 Glucose 133 H Calcium 10.7 H Cardiac Enzymes 08/11/17 08/12/17 Range/Units 22:42 03:49 Troponin I 0.10 H* 0.12 H* (< 0.04) ng/mL Urine 08/12/17 Range/Units 04:15 Urine Color Yellow (Yellow) Urine Clarity Clear (Clear) Urine pH 5.5 (5.0-8.0) pH Units Ur Specific [place] 1.026 H (1.010-1.025) Urine Protein 30 H (Neg-Trace) mg/dL Urine Glucose (UA) Normal (Normal) mg/dL Consult Discharge Plan - Plan Referrals: Pranav Harris DO [Primary Care Provider] - 08/19/17 2:00 pm <Parviz Quintero - Last Filed: 08/12/17 19:09> Date of Encounter: 08/12/17 - Assessment and plan (1) Acute respiratory failure with hypoxia Current Visit: Yes Status: Acute (2) Acute exacerbation of chronic obstructive airways disease Current Visit: Yes Status: Acute (3) CAD (coronary artery disease) Current Visit: Yes Status: Chronic Qualifiers: Coronary Disease-Associated Artery/Lesion type: [place] artery [place] vs. transplanted heart: [place] heart Associated angina: without angina Qualified Code(s): I25.10 - Atherosclerotic heart disease of [place] coronary artery without angina pectoris (4) HTN (hypertension) Current Visit: Yes Status: Chronic Qualifiers: Hypertension type: essential hypertension Qualified Code(s): I10 - Essential (primary) hypertension (5) HLD (hyperlipidemia) Current Visit: Yes Status: Chronic Qualifiers: Hyperlipidemia type: mixed hyperlipidemia Qualified Code(s): E78.2 - Mixed hyperlipidemia (6) Tobacco abuse Current Visit: No Status: Chronic (7) Acute kidney injury Current Visit: Yes Status: Acute - Constitutional Vitals: Temp Pulse Resp BP Pulse Ox 98 F 82 16 139/72 99 08/12/17 18:51 08/12/17 18:51 08/12/17 18:51 08/12/17 18:51 08/12/17 18:51 Internal Medicine: Result - Labs CBC & Chem 7: 08/12/17 03:49 08/12/17 03:49 Labs: Short CBC 08/12/17 Range/Units 03:49 WBC 4.7 (4.3-11.1) K/mcL Hgb 13.9 (11.5-15.4) g/dL Hct 40.9 (35.3-44.9) % Plt Count 209 (140-400) K/mcL Neutrophils # 4.1 (1.6-8.9) K/mcL BMP 08/12/17 03:49 Sodium 137 Potassium 4.1 Chloride 102 Carbon Dioxide 27 BUN 20 Creatinine 1.02 Glucose 133 H Calcium 10.7 H Cardiac Enzymes 08/11/17 08/12/17 08/12/17 Range/Units 22:42 03:49 10:08 Troponin I 0.10 H* 0.12 H* 0.09 H* (< 0.04) ng/mL 08/12/17 Range/Units 15:39 Troponin I 0.07 H* (< 0.04) ng/mL Urine 08/12/17 Range/Units 04:15 Urine Color Yellow (Yellow) Urine Clarity Clear (Clear) Urine pH 5.5 (5.0-8.0) pH Units Ur Specific [place] 1.026 H (1.010-1.025) Urine Protein 30 H (Neg-Trace) mg/dL Urine Glucose (UA) Normal (Normal) mg/dL - ABG Interpretation ABG results: PT/INR, D-dimer D-Dimer 5806 ng/mLFEU (0-500) H 08/12/17 10:28 - Impressions Impressions Chest CT 08/12/17 10:10 IMPRESSION: 1. Mild airway thickening with mucous plugging is identified. There is no distal lung collapse. No bronchiectasis. No focal consolidation. 2. No pleural abnormality. 3. Atherosclerosis and multivessel coronary artery disease 4. Enlarged heterogenous thyroid gland. Ultrasonography should be considered. D/ / José Manuel Vogt / José Manuel Vogt Interpreting Provider: José Manuel Vogt - Attending Attestation I examined this patient and my medical decision-making was reviewed with the Resident Physician on 08/12/17. I agree with the documented findings, disposition and treatment plan as described except to the extent set forth below. Ms Angulo is currently admitted for acute resp failure and COPD. She remains moderate to high risk due to potential for worsening clinical and respiratory status. Ms Angulo is still dyspneic and wheezing. No fever at this time. Having some pleuritic CP. D dimer elevated. No GI issues. Exam Alert. Moderate resp distress Mucus membranes dry Heart reg Diffuse wheeze Abd soft I/P 1. Resp failure 2. COPD Further diagnoses and plan as above.
[2017-08-12] MEDS: Budesonide/Formoterol 80/4.5 MDI IH SCH ×2 (10:55→19:47)
[2017-08-12] MEDS: 0.9 % Sodium Chloride 1,000 ML IVC SCH (11:51)
--- NOTE | 2017-08-12 23:18 | Electrocardiograph Report ---
[place] [id number] Test Date: 2017-08-11 Pat Name: Juliet Angulo Department: 102 Room: 3B37 Gender: F [place] [employer] Operator: : [id number] Requested By: Bryan Frye Order Number: [id number] Reading MD: Gaurav Breen DO Measurements Intervals [place] Rate: 72 P: 57 NC: 128 QRS: -42 QRSD: 140 T: 115 QT: 398 QTc: 421 Interpretive Statements SINUS RHYTHM POSSIBLE LEFT ATRIAL ENLARGEMENT LEFT BUNDLE BRANCH BLOCK Electronically Signed On 08-12-2017 23:16:47 EDT by Gaurav Breen DO
[2017-08-13] MEDS: Ipratropium/Albuterol Neb 3 ML IH SCH ×7 (00:10→23:20)
[2017-08-13] MEDS: methylPREDNISolone 125 MG/2 ML VIAL IVP SCH ×4 (00:36→18:40)
[2017-08-13] MEDS: *HR* Heparin 5,000 UNIT/ML VIAL SQ SCH ×3 (00:36→18:43)
[2017-08-13 05:25] LABS: Basophils % 0.1 %; Hematocrit 37.4 % (35.3-44.9); Immature Granulocytes % 1.1 % (0-4); Lymphocytes # 0.6 K/mcL (0.6-4.6); Lymphocytes % 3.8 %; Mean Corpuscular HGB Conc 32.1 g/dL (31.6-35.5); Mean Corpuscular Hemoglobin 30.5 pg (28.0-33.3); Mean Corpuscular Volume 95.2 fL (83.0-100.0); Mean Platelet Volume 9.9 fL (9.4-12.4); Monocytes # 0.4 K/mcL (0.0-1.3); Monocytes % 2.7 %; Neutrophils # 14.2 K/mcL (1.6-8.9); Platelet Count 193 K/mcL (140-400); Red Blood Count 3.93 M/mcL (3.82-4.97); Red Cell Distribution Width 13.4 % (11.5-14.5); Segmented Neutrophils % 92.3 %
[2017-08-13 05:42] LABS: BUN/Creatinine Ratio 31 (6-26); Blood Urea Nitrogen 31 mg/dL (8-23); Calcium 10.3 mg/dL (8.6-10.3); Carbon Dioxide 25 mEq/L (23-29); Chloride 107 mEq/L (98-107); Glucose 171 mg/dL (70-105); Osmolality,Calculated 295 (280-300); Potassium 4.2 mEq/L (3.5-5.1); Sodium 137 mEq/L (136-145); eGFR For African Americans > 60 (> 60); eGFR For Non-African Americans 54 (> 60)
[2017-08-13] MEDS: Budesonide/Formoterol 80/4.5 MDI IH SCH ×2 (07:31→19:43)
[2017-08-13] MEDS: Lisinopril 20 MG TABLET PO SCH (08:58)
[2017-08-13] MEDS: Famotidine 20 MG TABLET PO SCH (08:58)
[2017-08-13] MEDS: Cholecalciferol (D-3) 1,000 UNIT TABLET PO SCH (08:59)
[2017-08-13] MEDS: Isosorbide MONOnitrate (24 HR) 60 MG TAB.ER.24H PO SCH (08:59)
[2017-08-13] MEDS: amLODIPine 5 MG TABLET PO SCH (08:59)
[2017-08-13] MEDS: Nicotine 21 MG PATCH.TD24 TD SCH (09:00)
--- NOTE | 2017-08-13 09:06 | Internal Med Progress Note ---
<Jeremy Mckinley - Last Filed: 08/13/17 10:39> Date of Encounter: 08/13/17 Time of Encounter: 08:15 - Assessment and plan (1) Acute respiratory failure with hypoxia Current Visit: Yes Status: Acute Assessment and plan: Likely due to acute exacerbation of COPD Patient reports significant dyspnea and productive cough She also reports pleuritic chest pain Vitals stable except for requiring supplemental oxygen for comfort and to maintain saturation Significant wheezing on auscultation Chest x-ray negative Patient uses CPAP (without oxygen) at night for ZIYAD CT scan showed mild mucus plugging and heterogeneous thyroid Bilateral lower extremity Dopplers negative D-dimer 5800 VQ scan ordered today Continue supplemental oxygen as needed, wean as tolerated Continue CPAP at night Continue IV steroids at 60 mg every 6 hours Solu-Medrol Continue breathing treatments of albuterol and ipratropium Continue Levaquin (2) Acute exacerbation of chronic obstructive airways disease Current Visit: Yes Status: Acute Assessment and plan: Plan the above (3) Abnormal CT scan Current Visit: Yes Status: Acute Assessment and plan: CT findings showed an enlarged heterogeneous thyroid gland Patient has acute exacerbation COPD, so unsure if symptoms related to thyroid dysfunction We will order TSH We will obtain ultrasound of thyroid gland (4) Acute kidney injury Current Visit: Yes Status: Resolved Assessment and plan: Patient has baseline creatinine 0.8 which was elevated at 1.32 at admission This was likely due to dehydration After receiving IV fluids patient's serum creatinine improved We will continue to monitor renal function with daily labs Avoid potentially nephrotoxic agents (5) CAD (coronary artery disease) Current Visit: Yes Status: Chronic Assessment and plan: History of coronary artery disease A/P stents Continue aspirin, statin, and Plavix Qualifiers: Coronary Disease-Associated Artery/Lesion type: [place] artery [place] vs. transplanted heart: [place] heart Associated angina: without angina Qualified Code(s): I25.10 - Atherosclerotic heart disease of [place] coronary artery without angina pectoris (6) ZIYAD (obstructive sleep apnea) Current Visit: Yes Status: Chronic Assessment and plan: Patient has history of obstructive sleep apnea and uses CPAP at night Continue CPAP with supplemental oxygen if needed (7) GERD (gastroesophageal reflux disease) Current Visit: Yes Status: Chronic Assessment and plan: Stable continue home medication Qualifiers: Esophagitis presence: esophagitis presence not specified Qualified Code(s) : K21.9 - Gastro-esophageal reflux disease without esophagitis (8) HLD (hyperlipidemia) Current Visit: Yes Status: Chronic Assessment and plan: Stable, continue home medication Qualifiers: Hyperlipidemia type: mixed hyperlipidemia Qualified Code(s): E78.2 - Mixed hyperlipidemia (9) HTN (hypertension) Current Visit: Yes Status: Chronic Assessment and plan: Blood pressure slightly elevated in the 140s over 80s Continue home medications Continue to monitor Qualifiers: Hypertension type: essential hypertension Qualified Code(s): I10 - Essential (primary) hypertension (10) Tobacco abuse Current Visit: No Status: Chronic Assessment and plan: Patient reports having quit smoking 2 months ago Continues to use nicotine patch persistence of smoking cessation Continue nicotine patch - Subjective Interval history: Patient does not reports feeling significantly improved. She is still requiring supplemental oxygen and having some dyspnea. She does feels if her cough is worse, or release has significant coughing spell yesterday evening. He remains unproductive but she feels something needs to get up. She continues to have the sharp pain in her chest with coughing with occasional pain in her left arm. She does report having some continued chills without fever, denies nausea/vomiting, denies abdominal pain. - Constitutional Vitals: Temp Pulse Resp BP Pulse Ox 97.8 F 83 18 137/74 97 08/13/17 07:11 08/13/17 07:11 08/13/17 07:34 08/13/17 07:11 08/13/17 07:34 General appearance: Present: mild distress, A&O X 3, answers questions appropriately Exam: General: Cooperative, pleasant, mild distress, alert and oriented 3, answers questions appropriately HEENT: Normocephalic, atraumatic, Conjunctiva pink, sclera anicteric, oral mucosa moist Respiratory: No accessory muscle usage, wheezes improved today but still present Cardiovascular: Regular rate and rhythm, S1 and S2 present, no murmurs/rubs/ gallops/clicks appreciated GI/abdominal: Nondistended, nontender, soft, normal bowel sounds, no peritoneal signs Extremities: No calf tenderness, noncyanotic, no pedal edema appreciated, warm, lower extremity pulses palpable and symmetrical Neurological: Alert and oriented 3, no facial droop, no focal deficits Skin: Dry, intact, normal color Internal Medicine: Result - Labs CBC & Chem 7: 08/13/17 04:53 08/13/17 04:53 Labs: Short CBC 08/13/17 Range/Units 04:53 WBC 15.4 H D (4.3-11.1) K/mcL Hgb 12.0 D (11.5-15.4) g/dL Hct 37.4 (35.3-44.9) % Plt Count 193 (140-400) K/mcL Neutrophils # 14.2 H (1.6-8.9) K/mcL BMP 08/13/17 04:53 Sodium 137 Potassium 4.2 Chloride 107 Carbon Dioxide 25 BUN 31 H Creatinine 0.99 Glucose 171 H Calcium 10.3 Cardiac Enzymes 08/12/17 08/12/17 Range/Units 10:08 15:39 Troponin I 0.09 H* 0.07 H* (< 0.04) ng/mL - ABG Interpretation ABG results: PT/INR, D-dimer D-Dimer 5806 ng/mLFEU (0-500) H 08/12/17 10:28 - Impressions Impressions Chest CT 08/12/17 10:10 IMPRESSION: 1. Mild airway thickening with mucous plugging is identified. There is no distal lung collapse. No bronchiectasis. No focal consolidation. 2. No pleural abnormality. 3. Atherosclerosis and multivessel coronary artery disease 4. Enlarged heterogenous thyroid gland. Ultrasonography should be considered. D/ / José Manuel Vogt / José Manuel Vogt Interpreting Provider: José Manuel Vogt Consult Discharge Plan - Plan Referrals: Pranav Harris DO [Primary Care Provider] - 08/19/17 2:00 pm <Parviz Quintero - Last Filed: 08/13/17 17:38> Date of Encounter: 08/13/17 - Assessment and plan (1) Acute respiratory failure with hypoxia Current Visit: Yes Status: Acute (2) Acute exacerbation of chronic obstructive airways disease Current Visit: Yes Status: Acute (3) CAD (coronary artery disease) Current Visit: Yes Status: Chronic Qualifiers: Coronary Disease-Associated Artery/Lesion type: [place] artery [place] vs. transplanted heart: [place] heart Associated angina: without angina Qualified Code(s): I25.10 - Atherosclerotic heart disease of [place] coronary artery without angina pectoris (4) HTN (hypertension) Current Visit: Yes Status: Chronic Qualifiers: Hypertension type: essential hypertension Qualified Code(s): I10 - Essential (primary) hypertension (5) HLD (hyperlipidemia) Current Visit: Yes Status: Chronic Qualifiers: Hyperlipidemia type: mixed hyperlipidemia Qualified Code(s): E78.2 - Mixed hyperlipidemia (6) Tobacco abuse Current Visit: No Status: Chronic (7) Acute kidney injury Current Visit: Yes Status: Resolved (8) Aneurysm of infrarenal abdominal aorta Current Visit: Yes Status: Chronic - Constitutional Vitals: Temp Pulse Resp BP Pulse Ox 97.8 F 82 18 138/73 95 08/13/17 15:27 08/13/17 15:27 08/13/17 15:27 08/13/17 15:27 08/13/17 15:27 Internal Medicine: Result - Labs CBC & Chem 7: 08/13/17 04:53 08/13/17 04:53 Labs: Short CBC 08/13/17 Range/Units 04:53 WBC 15.4 H D (4.3-11.1) K/mcL Hgb 12.0 D (11.5-15.4) g/dL Hct 37.4 (35.3-44.9) % Plt Count 193 (140-400) K/mcL Neutrophils # 14.2 H (1.6-8.9) K/mcL BMP 08/13/17 04:53 Sodium 137 Potassium 4.2 Chloride 107 Carbon Dioxide 25 BUN 31 H Creatinine 0.99 Glucose 171 H Calcium 10.3 - ABG Interpretation ABG results: PT/INR, D-dimer D-Dimer 5806 ng/mLFEU (0-500) H 08/12/17 10:28 - Impressions Impressions Pulmonary Perfusion Imaging 08/13/17 09:06 IMPRESSION: Very low probability for pulmonary embolism. D/ / Bahman Carrizales MD / Bahman Carrizales MD Interpreting Provider: Bahman Carrizales MD Chest X-Ray 08/13/17 12:35 IMPRESSION: No acute disease D/ / Guilherme Willoughby MD / Guilherme Willoughby MD Interpreting Provider: Guilherme Willoughby MD - Attending Attestation I examined this patient and my medical decision-making was reviewed with the Resident Physician on 08/13/17. I agree with the documented findings, disposition and treatment plan as described except to the extent set forth below. Ms Angulo is currently admitted for acute exac COPD and resp failure. She remains moderate to high risk due to potential for worsening clinical and respiratory status. Ms Angulo is still wheezing a lot. No fever. She still feels very tired. No CP. No GI issues. V/Q very low probability for PE. Exam alert Mod resp distress Mucus membranes dry Heart reg Diffuse end exp wheeze noted. Abd soft I/P 1. Resp failure 2. COPD exac Will order echo today - last one in computer was done in 09/2015. D dimer markedly elevated. No distinct cause found at this time. Patient has hx of AAA but does not have symptoms. Last imaging in 07/13 (4.6 cm). Further diagnoses and plan as above.
[2017-08-13 09:40] LABS: Adenovirus Not Detected (Not Detect); Bordetella Pertussis Not Detected (Not Detect); Chlamydophila pneumoniae Not Detected (Not Detect); Coronavirus 229E Not Detected (Not Detect); Coronavirus HKU1 Not Detected (Not Detect); Coronavirus NL63 Not Detected (Not Detect); Coronavirus OC43 Not Detected (Not Detect); Human Metapneumovirus Not Detected (Not Detect); Human Rhinovirus/Enterovirus Not Detected (Not Detect); Influenza A Subtype 2009 H1 Not Detected (Not Detect); Influenza A Untypeable Not Detected (Not Detect); Influenza B Not Detected (Not Detect); Mycoplasma pneumoniae Not Detected (Not Detect); Parainfluenza Virus 1 Not Detected (Not Detect); Parainfluenza Virus 2 Not Detected (Not Detect); Parainfluenza Virus 3 Not Detected (Not Detect); Parainfluenza Virus 4 Not Detected (Not Detect); Respiratory Syncytial Virus Not Detected (Not Detect)
[2017-08-13] MEDS: ALPRAZolam 0.5 MG TABLET PO PRN (21:21)
[2017-08-13] MEDS ORDERED: Levofloxacin 750 MG/150 ML 750 MG/150 ML BAG IVPB SCH (22:00)
[2017-08-14] MEDS: methylPREDNISolone 125 MG/2 ML VIAL IVP SCH ×4 (00:38→17:58)
[2017-08-14] MEDS: *HR* Heparin 5,000 UNIT/ML VIAL SQ SCH ×3 (00:39→16:11)
[2017-08-14] MEDS: Ipratropium/Albuterol Neb 3 ML IH SCH ×6 (03:45→23:18)
[2017-08-14] MEDS ORDERED: Famotidine 20 MG/2 ML VIAL IVP ONE (06:23)
--- NOTE | 2017-08-14 06:32 | Event Note ---
Date of Encounter: 08/14/17 Time of Encounter: 06:25 Was called by RN for notification of swelling of tongue. Per RN, patient having no increased difficulty breathing or swallowing. Pt was assessed at bedside. No evidence of airway compromise or impending shock at time of assessment. No uticaria. Presentation may be multifactorial vs idiosyncatic angioedema. Unable to determine at presentation, but will hold both lisinopril and levaquin at this time. Received methylprednisolone overnight. Famotidine 20 mg IVP once. RN to notify MD if pt worsens.
[2017-08-14 06:49] LABS: Basophils % 0.1 %; Hematocrit 38.4 % (35.3-44.9); Hemoglobin 12.7 g/dL (11.5-15.4); Immature Granulocytes % 1.5 % (0-4); Lymphocytes # 0.7 K/mcL (0.6-4.6); Lymphocytes % 4.8 %; Mean Corpuscular HGB Conc 33.1 g/dL (31.6-35.5); Mean Corpuscular Hemoglobin 31.1 pg (28.0-33.3); Mean Corpuscular Volume 94.1 fL (83.0-100.0); Mean Platelet Volume 9.9 fL (9.4-12.4); Monocytes # 0.5 K/mcL (0.0-1.3); Monocytes % 3.3 %; Neutrophils # 12.5 K/mcL (1.6-8.9); Platelet Count 212 K/mcL (140-400); Red Blood Count 4.08 M/mcL (3.82-4.97); Red Cell Distribution Width 13.8 % (11.5-14.5); Segmented Neutrophils % 90.3 %
[2017-08-14 07:16] LABS: BUN/Creatinine Ratio 31 (6-26); Blood Urea Nitrogen 30 mg/dL (8-23); Calcium 10.6 mg/dL (8.6-10.3); Carbon Dioxide 27 mEq/L (23-29); Chloride 106 mEq/L (98-107); Glucose 146 mg/dL (70-105); Osmolality,Calculated 291 (280-300); Potassium 4.4 mEq/L (3.5-5.1); Sodium 136 mEq/L (136-145); eGFR For African Americans > 60 (> 60); eGFR For Non-African Americans 55 (> 60)
[2017-08-14] MEDS: Cholecalciferol (D-3) 1,000 UNIT TABLET PO SCH (08:32)
[2017-08-14] MEDS: Famotidine 20 MG TABLET PO SCH (08:33)
[2017-08-14] MEDS: Isosorbide MONOnitrate (24 HR) 60 MG TAB.ER.24H PO SCH (08:35)
[2017-08-14] MEDS: amLODIPine 5 MG TABLET PO SCH (08:35)
[2017-08-14] MEDS: Lisinopril 20 MG TABLET PO SCH (08:35)
[2017-08-14] MEDS: Nicotine 21 MG PATCH.TD24 TD SCH (08:35)
--- NOTE | 2017-08-14 09:52 | Internal Med Progress Note ---
<Jeremy Mckinley - Last Filed: 08/14/17 09:38> Date of Encounter: 08/14/17 Time of Encounter: 09:15 - Assessment and plan (1) Acute respiratory failure with hypoxia Current Visit: Yes Status: Acute Assessment and plan: Likely due to acute exacerbation of COPD Patient reports significant dyspnea and productive cough Vitals stable except for requiring supplemental oxygen for comfort and to maintain saturation Wheezing on auscultation improved Chest x-ray negative Patient uses CPAP (without oxygen) at night for ZIYAD CT scan showed mild mucus plugging and heterogeneous thyroid Bilateral lower extremity Dopplers negative D-dimer 5800 VQ scan shows very low probability for PE Levaquin stopped last night because of concerns of tongue swelling, talking to her it was more likely from dry mouth/tongue not swelling Recommend humified O2 Continue supplemental oxygen as needed, wean as tolerated Continue CPAP at night Continue IV steroids at 60 mg every 6 hours Solu-Medrol Continue breathing treatments of albuterol and ipratropium Will start azithromycin and ceftriaxone Will add cough medicine (2) Acute exacerbation of chronic obstructive airways disease Current Visit: Yes Status: Acute Assessment and plan: Plan the above (3) Abnormal CT scan Current Visit: Yes Status: Chronic Assessment and plan: CT findings showed an enlarged heterogeneous thyroid gland Patient has acute exacerbation COPD, so unsure if symptoms related to thyroid dysfunction TSH normal at .466 Thyroid US shows multinodular goiter Recommend possible FNA as outpatient (4) Acute kidney injury Current Visit: Yes Status: Resolved Assessment and plan: Patient has baseline creatinine 0.8 which was elevated at 1.32 at admission This was likely due to dehydration After receiving IV fluids patient's serum creatinine improved We will continue to monitor renal function with daily labs Avoid potentially nephrotoxic agents (5) Abdominal pain Current Visit: Yes Status: Acute Assessment and plan: Likely due to constipation Miralax and/or senna-alf for constipation if no resolution following BM, will re-evaluate Qualifiers: Abdominal location: right lower quadrant Qualified Code(s): R10.31 - Right lower quadrant pain (6) CAD (coronary artery disease) Current Visit: Yes Status: Chronic Assessment and plan: History of coronary artery disease A/P stents Continue aspirin, statin, and Plavix Qualifiers: Coronary Disease-Associated Artery/Lesion type: [place] artery [place] vs. transplanted heart: [place] heart Associated angina: without angina Qualified Code(s): I25.10 - Atherosclerotic heart disease of [place] coronary artery without angina pectoris (7) ZIYAD (obstructive sleep apnea) Current Visit: Yes Status: Chronic Assessment and plan: Patient has history of obstructive sleep apnea and uses CPAP at night Continue CPAP with supplemental oxygen if needed (8) GERD (gastroesophageal reflux disease) Current Visit: Yes Status: Chronic Assessment and plan: Stable continue home medication Qualifiers: Esophagitis presence: esophagitis presence not specified Qualified Code(s) : K21.9 - Gastro-esophageal reflux disease without esophagitis (9) HLD (hyperlipidemia) Current Visit: Yes Status: Chronic Assessment and plan: Stable, continue home medication Qualifiers: Hyperlipidemia type: mixed hyperlipidemia Qualified Code(s): E78.2 - Mixed hyperlipidemia (10) HTN (hypertension) Current Visit: Yes Status: Chronic Assessment and plan: Blood pressure slightly elevated in the 140s over 80s Lisinopril stopped last night due to concern of tongue swelling, likely patient just had dry mouth Blood pressure has remained stable Consider different medication for blood pressure if needed Continue to monitor Qualifiers: Hypertension type: essential hypertension Qualified Code(s): I10 - Essential (primary) hypertension (11) Tobacco abuse Current Visit: No Status: Chronic Assessment and plan: Patient reports having quit smoking 2 months ago Continues to use nicotine patch persistence of smoking cessation Patient states that she normally uses the nicotine patch during the day only Consider removing patch at night, per patient comfort Continue nicotine patch - Subjective Interval history: Patient reports that she had some difficulty last night with the feeling of extreme dryness in her mouth. She was seen by one of the night physicians who felt that her tongue appeared swollen. The patient seems to feel that it was due to dryness in her tongue and mouth. She states that her breathing and cough are similar to what they were yesterday. She denies any fevers, chills, or chest pain. She does report having some mild abdominal tenderness in her lower right quadrant, but admits that she has not had a bowel movement since being in the hospital. - Constitutional Vitals: Temp Pulse Resp BP Pulse Ox 97.8 F 59 18 146/76 100 08/14/17 07:07 08/14/17 07:07 08/14/17 07:07 08/14/17 07:07 08/14/17 07:07 General appearance: Present: A&O X 3, no acute distress, answers questions appropriately Exam: General: Cooperative, pleasant, mild distress, alert and oriented 3, answers questions appropriately HEENT: Normocephalic, atraumatic, Conjunctiva pink, sclera anicteric, oral mucosa dry Respiratory: No accessory muscle usage, wheezes improved today but still present Cardiovascular: Regular rate and rhythm, S1 and S2 present, no murmurs/rubs/ gallops/clicks appreciated GI/abdominal: Nondistended, nontender, soft, normal bowel sounds, no peritoneal signs Extremities: No calf tenderness, noncyanotic, no pedal edema appreciated, warm, lower extremity pulses palpable and symmetrical Neurological: Alert and oriented 3, no facial droop, no focal deficits Skin: Dry, intact, normal color Internal Medicine: Result - Labs CBC & Chem 7: 08/14/17 06:32 08/14/17 06:32 Labs: Short CBC 08/14/17 Range/Units 06:32 WBC 13.8 H (4.3-11.1) K/mcL Hgb 12.7 (11.5-15.4) g/dL Hct 38.4 (35.3-44.9) % Plt Count 212 (140-400) K/mcL Neutrophils # 12.5 H (1.6-8.9) K/mcL BMP 08/14/17 06:32 Sodium 136 Potassium 4.4 Chloride 106 Carbon Dioxide 27 BUN 30 H Creatinine 0.98 Glucose 146 H Calcium 10.6 H - ABG Interpretation ABG results: PT/INR, D-dimer D-Dimer 5806 ng/mLFEU (0-500) H 08/12/17 10:28 - Impressions Impressions Pulmonary Perfusion Imaging 08/13/17 09:06 IMPRESSION: Very low probability for pulmonary embolism. D/ / Bahman Carrizales MD / Bahman Carrizales MD Interpreting Provider: Bahman Carrizales MD Chest X-Ray 08/13/17 12:35 IMPRESSION: No acute disease D/ / Guilherme Willoughby MD / Guilherme Willoughby MD Interpreting Provider: Guilherme Willoughby MD Thyroid Ultrasound 08/13/17 18:00 IMPRESSION: The above findings are compatible with a multinodular goiter. To the nodules in the mid and inferior left thyroid lobe each measure 1.5-1.6 cm in greatest dimension. Consider thyroid FNA of these 2 nodules for definitive diagnosis. D/ / Mark Briceno MD / Mark Briceno MD Interpreting Provider: Mark Briceno MD Consult Discharge Plan - Plan Referrals: Pranav Harris DO [Primary Care Provider] - 08/19/17 2:00 pm <Parviz Quintero - Last Filed: 08/14/17 18:19> Date of Encounter: 08/14/17 - Assessment and plan (1) Acute respiratory failure with hypoxia Current Visit: Yes Status: Acute (2) Acute exacerbation of chronic obstructive airways disease Current Visit: Yes Status: Acute (3) CAD (coronary artery disease) Current Visit: Yes Status: Chronic Qualifiers: Coronary Disease-Associated Artery/Lesion type: [place] artery [place] vs. transplanted heart: [place] heart Associated angina: without angina Qualified Code(s): I25.10 - Atherosclerotic heart disease of [place] coronary artery without angina pectoris (4) HTN (hypertension) Current Visit: Yes Status: Chronic Qualifiers: Hypertension type: essential hypertension Qualified Code(s): I10 - Essential (primary) hypertension (5) HLD (hyperlipidemia) Current Visit: Yes Status: Chronic Qualifiers: Hyperlipidemia type: mixed hyperlipidemia Qualified Code(s): E78.2 - Mixed hyperlipidemia (6) Tobacco abuse Current Visit: No Status: Chronic (7) Acute kidney injury Current Visit: Yes Status: Resolved (8) Aneurysm of infrarenal abdominal aorta Current Visit: Yes Status: Chronic - Constitutional Vitals: Temp Pulse Resp BP Pulse Ox 97.9 F 63 16 121/68 99 08/14/17 15:11 08/14/17 15:11 08/14/17 15:56 08/14/17 15:11 08/14/17 15:56 Internal Medicine: Result - Labs CBC & Chem 7: 08/14/17 06:32 08/14/17 06:32 Labs: Short CBC 08/14/17 Range/Units 06:32 WBC 13.8 H (4.3-11.1) K/mcL Hgb 12.7 (11.5-15.4) g/dL Hct 38.4 (35.3-44.9) % Plt Count 212 (140-400) K/mcL Neutrophils # 12.5 H (1.6-8.9) K/mcL BMP 08/14/17 06:32 Sodium 136 Potassium 4.4 Chloride 106 Carbon Dioxide 27 BUN 30 H Creatinine 0.98 Glucose 146 H Calcium 10.6 H - ABG Interpretation ABG results: PT/INR, D-dimer D-Dimer 5806 ng/mLFEU (0-500) H 08/12/17 10:28 - Impressions Impressions Thyroid Ultrasound 08/13/17 18:00 IMPRESSION: The above findings are compatible with a multinodular goiter. To the nodules in the mid and inferior left thyroid lobe each measure 1.5-1.6 cm in greatest dimension. Consider thyroid FNA of these 2 nodules for definitive diagnosis. D/ / Mark Briceno MD / Mark Briceno MD Interpreting Provider: Mark Briceno MD Echocardiogram 08/14/17 17:42 Impressions: LVEF 60-65%. Normal LV chamber size and function. Mild left ventricular diastolic dysfunction. Mild concentric left ventricular hypertrophy. Normal right ventricular structure and function. Mild pulmonary hypertension. No significant valvular dysfunction. There is a very small anteriorl pericardial effusion present. No hemodynamic significance. Left Ventricular Wall Motion: Rest Echo Findings All wall segments showed normal motion. Findings: Study Quality * Technically adequate exam. ECG Findings * Normal sinus rhythm. Left Ventricle * LVEF 60-65%. * Normal LV chamber size and function. * Mild left ventricular diastolic dysfunction. * Mild concentric left ventricular hypertrophy. Right Ventricle * Normal right ventricular structure and function. Left Atrium * Moderately dilated left atrium. Right Atrium * Mildly dilated right atrium. Aortic Valve * Trileaflet aortic valve. * Mildly sclerotic aortic valve leaflets. * No aortic regurgitation. * No aortic stenosis. Mitral Valve * Mildly thickened mitral valve leaflets. * Trace mitral regurgitation. * No mitral stenosis. Tricuspid Valve * Normal tricuspid valve structure and function. * Trace tricuspid regurgitation. * Mild pulmonary hypertension. Pulmonic Valve * Normal pulmonic valve structure and function. * No pulmonic regurgitation. Aorta * Normally sized aortic root. Pericardium * There is a very small anteriorl pericardial effusion present. IVC * Normal IVC dimensions and inspiratory collapse. Pulmonary Artery * Normal visualized portions of the main pulmonary artery. - Attending Attestation I examined this patient and my medical decision-making was reviewed with the Resident Physician on 08/14/17. I agree with the documented findings, disposition and treatment plan as described except to the extent set forth below. Ms Angulo is currently admitted for acute exac COPD. She remains moderate to high risk due to potential for worsening clinical status. Ms Angulo is still wheezing a lot but does seem somewhat better overall. She is having some low back pain. No dysuria. No fever. Daughter at bedside and concerned that this is the second episode of this in 3-4 months. Echo pending. Exam alert Comfortable Mucus membranes dry Heart distant End exp wheeze heard Abd soft I/P 1. COPD Exac 2. Resp failure Further diagnoses and plan as above
[2017-08-14] MEDS: Budesonide/Formoterol 80/4.5 MDI IH SCH ×2 (10:56→19:52)
[2017-08-14] MEDS: ALPRAZolam 0.5 MG TABLET PO PRN ×2 (11:36→20:07)
[2017-08-14] MEDS: Azithromycin 500 MG in D5% in Water 250 ML IVPB SCH (12:07)
[2017-08-14] MEDS: cefTRIAXone 1,000 MG in Water for inj. (sterile) 20 ML 10 ML IVP SCH (12:08)
--- NOTE | 2017-08-14 14:11 | Pulmonology Consult Note ---
Date of Encounter: 08/14/17 Time of Encounter: 14:10 Assessment and Plan (1) Acute exacerbation of chronic obstructive airways disease Current Visit: Yes Status: Acute Clearly has a COPD exacerbation. This far infectious workup has been negative and CT scan is not consistent with pneumonia. Although she is on treatment for community acquired pneumonia I suspect she would benefit most from the continuation of azithromycin if her noted reason than the anti-inflammatory properties of this medication and obstructive lung disease. Otherwise management thus far has been essentially optimized and my opinion is that she just needs some time to resolve airway inflammation I would recommend that at time of discharge she should be assessed by the respiratory therapist to use her inhaler in this case Symbicort 2 puffs twice daily which she should be discharged. There is any issue that she does not seem that she can operate this effectively all of her medication should be transitioned to nebulized form and if she does not have a home nebulizer this should be given to her at the time of discharge with ipratropium/albuterol treatments every 4-6 hours on a scheduled basis. She should follow-up pulmonary for pulmonary function testing and further optimization of medication she likely would benefit from a long acting muscarinic antagonist although the by mouth tropia formulation on formulary here is likely not a great option given it is delivered via [employer] with a high internal resistance and if DuoNeb treatments can be delivered in 4-6 hour increments this may be more of a luxury than necessity (2) Tobacco abuse Current Visit: No Status: Chronic Reinforced the need to remain tobacco free she is using a nicotine patch (3) ZIYAD (obstructive sleep apnea) Current Visit: Yes Status: Chronic Agree with continued CPAP at night with oxygen bleed to keep saturation around 89-92% (4) Acute respiratory failure with hypoxia Current Visit: Yes Status: Acute Wean FiO2 to keep saturation greater than 88%. She will need walking pulse oximetry study prior to discharge for evaluation of ongoing O2 Out of bed to chair early ambulation and incentive spirometry also very helpful to mitigate the effects of atelectasis that is also likely complicating this picture and contributing to VQ mismatch (5) Diastolic dysfunction Current Visit: Yes Status: Acute I suspect the majority of her symptoms are related to COPD exacerbation but in general not negative volume status in the inpatients during this treatment of exacerbation of COPD is crucial along with blood pressure control for increased filling pressures associated with HFpEF and this can be a source of significant symptomatology with COPD exacerbation and increased hyperinflation. For this standpoint is reasonable to repeat her echocardiogram. Pulmonary we will sign off please call with any questions Thank you for allowing us to participate in the care of this patient we look forward to following with her and the outpatient setting in our pulmonary clinic History of Present Illness Consult date: 08/14/17 Requesting physician: Jeremy Mckinley Reason for consult: COPD Chief complaint: Shortness of Breath History of present illness: This is a very pleasant 82-year-old woman with past medical history of COPD with a recent exacerbation requiring hospitalization in March 2017. She presented with acute shortness of breath that started around Friday came on suddenly and got progressively worse she was having significant difficulty with breathing and had a productive cough. Denies sick contacts or exposures to chemicals fumes smoke etc. Since hospitalization she has had extensive workup including a CT of the chest which was notable for acute on chronic bronchitis with outs evidence of pneumonia chest x-ray that was done yesterday without acute process VQ scan which was low probability for pulmonary embolus and now pending echocardiogram. The patient has had persistent shortness of breath and wheeze and the pulmonary service was consulted for further recommendations from this standpoint. Since she has been in the hospital she is required supplemental oxygen and currently is being delivered via nasal cannula at 3 L with saturation in the high 90s She started smoking in her late 40s and likely was a closet smoker prior to that but started smoking heavily after the of her father. 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 She was diagnosed with obstructive sleep apnea about 8 years ago and has been using a CPAP machine at home since then. Although she carries a diagnosis of COPD she is unclear of what her home inhaler regimen is and I do not see any history of poorly function testing at least recently this been performed. She denies hemoptysis fevers weight loss chills night sweats although she recently had some pleuritic chest pain that has resolved. Past Med Surg Social Fam HX - Past Medical History Medical history: CHF, COPD, coronary artery disease, hyperlipidemia, hypertension, myocardial infarction Psychiatric history: no psych history - Past Surgical History Surgical History: appendectomy, cholecystectomy, hysterectomy, orthopedic, other - Social History Smoking Status: Former smoker Smokeless Tobacco Status: No Alcohol use: none Drug use: none - Family History Father Living Status: Hx Family Cancer: Yes (bone) Mother Living Status: Medications and Allergies ALPRAZolam [Xanax 0.5 MG Tablet] 0.25 - 0.5 mg PO DAILY PRN 10/15/15 [History] Atorvastatin [Lipitor] 40 mg PO HS 10/15/15 [History] Cholecalciferol (D-3) [Vitamin D] 1,000 unit PO DAILY 10/15/15 [History] Clopidogrel [Plavix] 75 mg PO DAILY 10/15/15 [History] Furosemide [Lasix] 20 mg PO Q48H 10/15/15 [History] HYDROcodone/Acet 5/325 mg [[place] 5-325 mg] 0.5 - 1 tab PO BID PRN 10/15/15 [ History] Lisinopril [Zestril] 20 mg PO DAILY 10/15/15 [History] Ranitidine HCl [Heartburn Relief] 150 mg PO DAILY 10/15/15 [History] amLODIPine [Norvasc] 5 mg PO DAILY 10/15/15 [History] Albuterol Sulfate [Proair Hfa] 2 puff IH Q4-6H PRN 08/11/17 [History] Carvedilol 12.5 mg PO BID 08/11/17 [History] Fluticasone/Salmeterol [Advair Hfa 115-21 Mcg Inhaler] 2 puff IH BID 08/11/17 [ History] Gabapentin [Neurontin] 100 mg PO AD PRN 08/11/17 [History] Isosorbide MONOnitrate (24 HR) [Imdur] 60 mg PO DAILY 08/11/17 [History] Nicotine Patch [Nicoderm] 21 mg TD DAILY 08/11/17 [History] Simethicone [Gas-X] 80 mg PO ACHS PRN 08/11/17 [History] 3 Allergy/AdvReac Type Severity Reaction Status Date / Time Benzonatate Allergy Confusion Verified 08/11/17 19:32 [From Mikala Montejo] Iodinated Contrast- Oral and AdvReac Mild See Verified 08/11/17 19:32 IV Dye Comments [Iodinated Contrast Media - IV Dye] codeine AdvReac Itching Verified 08/11/17 19:32 All Systems: The remainder of the systems were reviewed and are negative Physical Examination Vital Signs: Vital Signs, Last 4 Hours Temp Pulse Resp BP Pulse Ox 08/14/17 10:56 97.8 F 70 18 133/78 99 General appearance: appears uncomfortable Eyes: nonicteric ENT: oropharynx moist Effort: mildly labored Auscultation: bilateral: wheezes Cardiovascular: regular rate and rhythm Gastrointestinal: normoactive bowel sounds, soft, non-tender Integumentary: normal Extremities: no cyanosis, other (Trace lower extremity edema) Musculoskeletal: no deformities normal mental status, non-focal exam Results - Laboratory Findings CBC and BMP: 08/14/17 06:32 08/14/17 06:32 PT/INR, D-dimer D-Dimer 5806 ng/mLFEU (0-500) H 08/12/17 10:28 Abnormal lab findings: Abnormal lab results WBC 13.8 K/mcL (4.3-11.1) H 08/14/17 06:32 Neutrophils # 12.5 K/mcL (1.6-8.9) H 08/14/17 06:32 D-Dimer 5806 ng/mLFEU (0-500) H 08/12/17 10:28 BUN 30 mg/dL (8-23) H 08/14/17 06:32 Est GFR (Non-Af Amer) 55 (> 60) L 08/14/17 06:32 BUN/Creatinine Ratio 31 (6-26) H 08/14/17 06:32 Glucose 146 mg/dL (70-105) H 08/14/17 06:32 POC Glucose 183 (58-89) H 08/14/17 11:18 Calcium 10.6 mg/dL (8.6-10.3) H 08/14/17 06:32 Troponin I 0.07 ng/mL (< 0.04) H* 08/12/17 15:39 B-Natriuretic Peptide 197 pg/mL (Less than 100) H 08/12/17 03:49 HDL Cholesterol 77 mg/dL (40-59) H 08/12/17 03:49 Ur Specific [place] 1.026 (1.010-1.025) H 08/12/17 04:15 Urine Protein 30 mg/dL (Neg-Trace) H 08/12/17 04:15 Urine Blood Moderate (Negative) H 08/12/17 04:15 Urine Microscopic RBC 5-15 per hpf (0-3) H 08/12/17 04:15 Ur Squamous Epith Cells Many per lpf (None-Few) H 08/12/17 04:15 - Microbiology Findings Microbiology Findings: Microbiology, Last 48 Hours 08/13/17 15:45 Sputum Culture - Final Sputum - Diagnostic Findings Chest x-ray: report reviewed, image reviewed CT scan - chest: report reviewed, image reviewed - Clinical Findings Intake & Output: Intake & Output 08/13/17 08/14/17 08/14/17 23:59 07:59 15:59 Intake Total 120 / 120 150 / 150 360 / 360 Output Total 300 / 300 400 / 400 Balance -180 / -180 150 / 150 -40 / -40 Weight 70.851 kg Consult Discharge Plan - Plan Referrals: Pranav Harris DO [Primary Care Provider] - 08/19/17 2:00 pm
[2017-08-15] MEDS: *HR* Heparin 5,000 UNIT/ML VIAL SQ SCH ×3 (00:02→16:09)
[2017-08-15] MEDS: methylPREDNISolone 125 MG/2 ML VIAL IVP SCH ×4 (00:02→18:03)
[2017-08-15] MEDS: Ipratropium/Albuterol Neb 3 ML IH SCH ×6 (04:17→23:50)
[2017-08-15 06:41] LABS: Basophils % 0.1 %; Eosinophils % 0.1 %; Hematocrit 38.2 % (35.3-44.9); Hemoglobin 12.2 g/dL (11.5-15.4); Immature Granulocytes % 1.5 % (0-4); Lymphocytes # 0.7 K/mcL (0.6-4.6); Lymphocytes % 6.5 %; Mean Corpuscular HGB Conc 31.9 g/dL (31.6-35.5); Mean Corpuscular Hemoglobin 30.1 pg (28.0-33.3); Mean Corpuscular Volume 94.3 fL (83.0-100.0); Mean Platelet Volume 9.9 fL (9.4-12.4); Monocytes # 0.5 K/mcL (0.0-1.3); Monocytes % 4.7 %; Platelet Count 226 K/mcL (140-400); Red Blood Count 4.05 M/mcL (3.82-4.97); Red Cell Distribution Width 13.8 % (11.5-14.5); Segmented Neutrophils % 87.1 %
--- NOTE | 2017-08-15 09:21 | Internal Med Progress Note ---
<Jeremy Mckinley - Last Filed: 08/15/17 09:18> Date of Encounter: 08/15/17 Time of Encounter: 08:05 - Assessment and plan (1) Acute respiratory failure with hypoxia Current Visit: Yes Status: Acute Assessment and plan: Due to acute exacerbation of COPD Patient reports significant dyspnea and productive cough Vitals stable except for requiring supplemental oxygen for comfort and to maintain saturation Wheezing on auscultation improved Chest x-ray negative Patient uses CPAP (without oxygen) at night for ZIYAD CT scan showed mild mucus plugging and heterogeneous thyroid Bilateral lower extremity Dopplers negative D-dimer 5800 VQ scan shows very low probability for PE Levaquin stopped 08/13 because of concerns of tongue swelling, talking to her it was more likely from dry mouth/tongue not swelling Recommend humified O2 Continue supplemental oxygen as needed, wean as tolerated Continue CPAP at night Continue IV steroids at 60 mg every 6 hours Solu-Medrol Continue breathing treatments of albuterol and ipratropium We will stop ceftriaxone and continue azithromycin Will add dextromethorphan/guaifenesin Patient will likely benefit from education on proper use of her inhalers Consider transitioning and held medication to nebulized upon discharge Including DuoNeb every 4-6 hours scheduled Is recommended the patient follow-up with pulmonology (2) Acute exacerbation of chronic obstructive airways disease Current Visit: Yes Status: Acute Assessment and plan: Plan the above (3) Abnormal CT scan Current Visit: Yes Status: Chronic Assessment and plan: CT findings showed an enlarged heterogeneous thyroid gland Patient has acute exacerbation COPD, so unsure if symptoms related to thyroid dysfunction TSH normal at .466 Thyroid US shows multinodular goiter Recommend possible FNA as outpatient (4) Acute kidney injury Current Visit: Yes Status: Resolved Assessment and plan: Patient has baseline creatinine 0.8 which was elevated at 1.32 at admission This was likely due to dehydration After receiving IV fluids patient's serum creatinine improved We will continue to monitor renal function with daily labs Avoid potentially nephrotoxic agents (5) Abdominal pain Current Visit: Yes Status: Acute Assessment and plan: Likely due to constipation Miralax and/or senna-alf for constipation if no resolution following BM, will re-evaluate Consider enema if needed Qualifiers: Abdominal location: right lower quadrant Qualified Code(s): R10.31 - Right lower quadrant pain (6) CAD (coronary artery disease) Current Visit: Yes Status: Chronic Assessment and plan: History of coronary artery disease S/P stents Continue aspirin, statin, and Plavix Qualifiers: Coronary Disease-Associated Artery/Lesion type: [place] artery [place] vs. transplanted heart: [place] heart Associated angina: without angina Qualified Code(s): I25.10 - Atherosclerotic heart disease of [place] coronary artery without angina pectoris (7) ZIYAD (obstructive sleep apnea) Current Visit: Yes Status: Chronic Assessment and plan: Patient has history of obstructive sleep apnea and uses CPAP at night Continue CPAP with supplemental oxygen if needed (8) GERD (gastroesophageal reflux disease) Current Visit: Yes Status: Chronic Assessment and plan: Stable continue home medication Qualifiers: Esophagitis presence: esophagitis presence not specified Qualified Code(s) : K21.9 - Gastro-esophageal reflux disease without esophagitis (9) HLD (hyperlipidemia) Current Visit: Yes Status: Chronic Assessment and plan: Stable, continue home medication Qualifiers: Hyperlipidemia type: mixed hyperlipidemia Qualified Code(s): E78.2 - Mixed hyperlipidemia (10) HTN (hypertension) Current Visit: Yes Status: Chronic Assessment and plan: Blood pressure slightly elevated in the 140s over 80s Lisinopril stopped last night due to concern of tongue swelling, likely patient just had dry mouth Blood pressure has remained stable Consider different medication for blood pressure if needed Continue to monitor Qualifiers: Hypertension type: essential hypertension Qualified Code(s): I10 - Essential (primary) hypertension (11) Tobacco abuse Current Visit: No Status: Chronic Assessment and plan: Patient reports having quit smoking 2 months ago Continues to use nicotine patch persistence of smoking cessation Patient states that she normally uses the nicotine patch during the day only Consider removing patch at night, per patient comfort Continue nicotine patch - Subjective Interval history: Patient resting comfortably in bed with BiPAP in position. She states she feels about similar to yesterday, reports mild improvement in her breathing and in her cough. She denies fever/chills. Denies nausea/vomiting. She does report having had one small bowel movement last night with mild improvement of her abdominal pain. - Constitutional Vitals: Temp Pulse Resp BP Pulse Ox 97.3 F L 56 15 143/71 100 08/15/17 06:49 08/15/17 06:49 08/15/17 07:51 08/15/17 06:49 08/15/17 07:51 General appearance: Present: A&O X 3, no acute distress, answers questions appropriately Exam: General: Cooperative, pleasant, mild distress, alert and oriented 3, answers questions appropriately HEENT: Normocephalic, atraumatic, Conjunctiva pink, sclera anicteric Respiratory: No accessory muscle usage, diffuse wheeze on auscultation Cardiovascular: Regular rate and rhythm, S1 and S2 present, no murmurs/rubs/ gallops/clicks appreciated GI/abdominal: Nondistended, mild tenderness to palpation in right lower quadrant , soft, normal bowel sounds, no peritoneal signs Extremities: No calf tenderness, noncyanotic, no pedal edema appreciated, warm, lower extremity pulses palpable and symmetrical Neurological: Alert and oriented 3, no facial droop, no focal deficits Skin: Dry, intact, normal color Internal Medicine: Result - Labs CBC & Chem 7: 08/15/17 06:09 08/14/17 06:32 Labs: Short CBC 08/15/17 Range/Units 06:09 WBC 10.3 (4.3-11.1) K/mcL Hgb 12.2 (11.5-15.4) g/dL Hct 38.2 (35.3-44.9) % Plt Count 226 (140-400) K/mcL Neutrophils # 9.0 H (1.6-8.9) K/mcL - ABG Interpretation ABG results: PT/INR, D-dimer D-Dimer 5806 ng/mLFEU (0-500) H 08/12/17 10:28 - Impressions Impressions Echocardiogram 08/14/17 17:42 Impressions: LVEF 60-65%. Normal LV chamber size and function. Mild left ventricular diastolic dysfunction. Mild concentric left ventricular hypertrophy. Normal right ventricular structure and function. Mild pulmonary hypertension. No significant valvular dysfunction. There is a very small anteriorl pericardial effusion present. No hemodynamic significance. Left Ventricular Wall Motion: Rest Echo Findings All wall segments showed normal motion. Findings: Study Quality * Technically adequate exam. ECG Findings * Normal sinus rhythm. Left Ventricle * LVEF 60-65%. * Normal LV chamber size and function. * Mild left ventricular diastolic dysfunction. * Mild concentric left ventricular hypertrophy. Right Ventricle * Normal right ventricular structure and function. Left Atrium * Moderately dilated left atrium. Right Atrium * Mildly dilated right atrium. Aortic Valve * Trileaflet aortic valve. * Mildly sclerotic aortic valve leaflets. * No aortic regurgitation. * No aortic stenosis. Mitral Valve * Mildly thickened mitral valve leaflets. * Trace mitral regurgitation. * No mitral stenosis. Tricuspid Valve * Normal tricuspid valve structure and function. * Trace tricuspid regurgitation. * Mild pulmonary hypertension. Pulmonic Valve * Normal pulmonic valve structure and function. * No pulmonic regurgitation. Aorta * Normally sized aortic root. Pericardium * There is a very small anteriorl pericardial effusion present. IVC * Normal IVC dimensions and inspiratory collapse. Pulmonary Artery * Normal visualized portions of the main pulmonary artery. Consult Discharge Plan - Plan Referrals: Pranav Harris DO [Primary Care Provider] - 08/19/17 2:00 pm <Parviz Quintero - Last Filed: 08/15/17 15:31> Date of Encounter: 08/15/17 - Assessment and plan (1) Acute respiratory failure with hypoxia Current Visit: Yes Status: Acute (2) Acute exacerbation of chronic obstructive airways disease Current Visit: Yes Status: Acute (3) CAD (coronary artery disease) Current Visit: Yes Status: Chronic Qualifiers: Coronary Disease-Associated Artery/Lesion type: [place] artery [place] vs. transplanted heart: [place] heart Associated angina: without angina Qualified Code(s): I25.10 - Atherosclerotic heart disease of [place] coronary artery without angina pectoris (4) HTN (hypertension) Current Visit: Yes Status: Chronic Qualifiers: Hypertension type: essential hypertension Qualified Code(s): I10 - Essential (primary) hypertension (5) HLD (hyperlipidemia) Current Visit: Yes Status: Chronic Qualifiers: Hyperlipidemia type: mixed hyperlipidemia Qualified Code(s): E78.2 - Mixed hyperlipidemia (6) Tobacco abuse Current Visit: No Status: Chronic (7) Acute kidney injury Current Visit: Yes Status: Resolved (8) Aneurysm of infrarenal abdominal aorta Current Visit: Yes Status: Chronic - Constitutional Vitals: Temp Pulse Resp BP Pulse Ox 97.5 F L 78 18 148/88 94 08/15/17 11:33 08/15/17 11:33 08/15/17 11:35 08/15/17 11:33 08/15/17 11:35 Internal Medicine: Result - Labs CBC & Chem 7: 08/15/17 06:09 08/14/17 06:32 Labs: Short CBC 08/15/17 Range/Units 06:09 WBC 10.3 (4.3-11.1) K/mcL Hgb 12.2 (11.5-15.4) g/dL Hct 38.2 (35.3-44.9) % Plt Count 226 (140-400) K/mcL Neutrophils # 9.0 H (1.6-8.9) K/mcL - ABG Interpretation ABG results: PT/INR, D-dimer D-Dimer 5806 ng/mLFEU (0-500) H 08/12/17 10:28 - Attending Attestation I examined this patient and my medical decision-making was reviewed with the Resident Physician on 08/15/17. I agree with the documented findings, disposition and treatment plan as described except to the extent set forth below. Ms Angulo is currently admitted for acute exac COPD and hypoxia. She continues to have significant respiratory issues. She remains moderate to high risk due to potential for worsening clinical status. Ms Anguol is still wheezing significantly. She is coughing but unable to mobilize sputum. No fever. No CP or GI issues. Exam Alert Mod distress - coughing Mucus membranes dry Heart distant Diffuse end exp wheeze noted Abd soft No edema I/P 1. COPD exac - appreciate pulm input. Add Mucomyst at this time. Further diagnoses and plan as above.
[2017-08-15] MEDS: Nicotine 21 MG PATCH.TD24 TD SCH (09:27)
[2017-08-15] MEDS: amLODIPine 5 MG TABLET PO SCH (09:29)
[2017-08-15] MEDS: Isosorbide MONOnitrate (24 HR) 60 MG TAB.ER.24H PO SCH (09:29)
[2017-08-15] MEDS: Famotidine 20 MG TABLET PO SCH (09:29)
[2017-08-15] MEDS: Cholecalciferol (D-3) 1,000 UNIT TABLET PO SCH (09:30)
[2017-08-15] MEDS: Lisinopril 20 MG TABLET PO SCH (09:30)
[2017-08-15] MEDS: Azithromycin 500 MG in D5% in Water 250 ML IVPB SCH (09:46)
[2017-08-15] MEDS: *HR* HYDROcodone/Acet 5/325 mg TABLET PO PRN (11:26)
[2017-08-15] MEDS: ALPRAZolam 0.5 MG TABLET PO PRN ×2 (11:27→20:04)
[2017-08-15] MEDS: Budesonide/Formoterol 80/4.5 MDI IH SCH ×2 (11:35→19:37)
[2017-08-15] MEDS: Acetylcysteine 10% 2 ML INHSOL IH SCH ×3 (16:43→23:51)
[2017-08-16] MEDS: *HR* Heparin 5,000 UNIT/ML VIAL SQ SCH ×4 (00:15→23:24)
[2017-08-16] MEDS: methylPREDNISolone 125 MG/2 ML VIAL IVP SCH ×5 (00:15→23:21)
[2017-08-16] MEDS: *HR* HYDROcodone/Acet 5/325 mg TABLET PO PRN (00:24)
[2017-08-16] MEDS: Ipratropium/Albuterol Neb 3 ML IH SCH ×6 (04:10→23:29)
[2017-08-16] MEDS: Acetylcysteine 10% 2 ML INHSOL IH SCH ×6 (04:10→23:29)
--- NOTE | 2017-08-16 08:12 | Internal Med Progress Note ---
Date of Encounter: 08/16/17 Time of Encounter: 07:50 - Assessment and plan (1) Acute respiratory failure with hypoxia Current Visit: Yes Status: Acute Assessment and plan: Continues to require supplemental oxygen and bipap. Continues with significant secretions. Will wean oxygen as able. (2) Acute exacerbation of chronic obstructive airways disease Current Visit: Yes Status: Acute Assessment and plan: Continues to have significant secretions bilaterally. Have added mucomyst and will make sure enough guafenesin is ordered. Still on high dose steroids and will start to decrease these today. Recheck CXR today. CT showed mucus plugging. If continued issue with secretions over next day or so will discuss with pulm possible further intervention. Pt does not appear to be moving much. Will increase activity today. PT/OT evals - suspect she may need SNF at discharge. (3) CAD (coronary artery disease) Current Visit: Yes Status: Chronic Assessment and plan: Chronic issue. Qualifiers: Coronary Disease-Associated Artery/Lesion type: [place] artery [place] vs. transplanted heart: [place] heart Associated angina: without angina Qualified Code(s): I25.10 - Atherosclerotic heart disease of [place] coronary artery without angina pectoris (4) HTN (hypertension) Current Visit: Yes Status: Chronic Assessment and plan: BP appears to be fairly controlled on current regimen. Qualifiers: Hypertension type: essential hypertension Qualified Code(s): I10 - Essential (primary) hypertension (5) HLD (hyperlipidemia) Current Visit: Yes Status: Chronic Assessment and plan: Chronic issue. Qualifiers: Hyperlipidemia type: mixed hyperlipidemia Qualified Code(s): E78.2 - Mixed hyperlipidemia (6) Tobacco abuse Current Visit: Yes Status: Chronic Assessment and plan: Cessation counselling. Nicotine replacement. (7) Aneurysm of infrarenal abdominal aorta Current Visit: Yes Status: Chronic Assessment and plan: Chronic issue. - Subjective Interval history: Ms Angulo is currently admitted for acute exac COPD and resp failure. She remains moderate to high risk due to potential for worsening clinical status. Ms Angulo is still having issues with secretions. She is still having difficulty coughing them up. It does not appear that she has been out of bed much. No fever or chills. Had some burning chest pain with cough. No GI issues. - Constitutional Vitals: Temp Pulse Resp BP Pulse Ox 96.7 F L 77 16 156/93 96 08/16/17 07:13 08/16/17 07:13 08/16/17 07:30 08/16/17 07:13 08/16/17 07:30 General appearance: Present: A&O X 3, answers questions appropriately - Head Head exam: Present: normocephalic - Eye Eye exam: Present: EOMI, conjuntiva pink - ENT ENT exam: Present: mucous membranes dry - Respiratory Respiratory exam: Present: rhonchi, wheezes Additional comments: Diffuse anterior and lateral rhonchi and end exp wheeze especially on L. - Cardiovascular Cardiovascular exam: Present: distant heart sounds, RRR. Absent: tachycardia - GI/Abdominal GI/Abdominal exam: Present: soft. Absent: tenderness - Extremities Exam Extremities exam: Present: warm. Absent: tenderness - Neurological Exam Neurological exam: Present: alert, no focal deficits - Skin Skin exam: Present: dry, warm Internal Medicine: Result - Labs CBC & Chem 7: 08/15/17 06:09 08/14/17 06:32 - ABG Interpretation ABG results: PT/INR, D-dimer D-Dimer 5806 ng/mLFEU (0-500) H 08/12/17 10:28 Consult Discharge Plan - Plan Referrals: Pranav Harris DO [Primary Care Provider] - 08/19/17 2:00 pm
[2017-08-16] MEDS: Nicotine 21 MG PATCH.TD24 TD SCH (09:10)
[2017-08-16] MEDS: amLODIPine 5 MG TABLET PO SCH (09:10)
[2017-08-16] MEDS: Isosorbide MONOnitrate (24 HR) 60 MG TAB.ER.24H PO SCH (09:10)
[2017-08-16] MEDS: Lisinopril 20 MG TABLET PO SCH (09:11)
[2017-08-16] MEDS: Cholecalciferol (D-3) 1,000 UNIT TABLET PO SCH (09:11)
[2017-08-16] MEDS: Azithromycin 500 MG in D5% in Water 250 ML IVPB SCH (09:12)
[2017-08-16] MEDS: Famotidine 20 MG TABLET PO SCH (09:12)
[2017-08-16] MEDS: Budesonide/Formoterol 80/4.5 MDI IH SCH ×2 (10:48→20:21)
[2017-08-16] MEDS: ALPRAZolam 0.5 MG TABLET PO PRN (20:01)
[2017-08-17] MEDS: Acetylcysteine 10% 2 ML INHSOL IH SCH ×5 (03:50→20:35)
[2017-08-17] MEDS: Ipratropium/Albuterol Neb 3 ML IH SCH ×5 (03:50→20:35)
[2017-08-17 04:26] LABS: Hematocrit 38.6 % (35.3-44.9); Hemoglobin 12.1 g/dL (11.5-15.4); Mean Corpuscular HGB Conc 31.3 g/dL (31.6-35.5); Mean Corpuscular Hemoglobin 29.7 pg (28.0-33.3); Mean Corpuscular Volume 94.8 fL (83.0-100.0); Mean Platelet Volume 9.9 fL (9.4-12.4); Platelet Count 247 K/mcL (140-400); Red Blood Count 4.07 M/mcL (3.82-4.97); Red Cell Distribution Width 13.6 % (11.5-14.5)
[2017-08-17 05:25] LABS: Albumin 3.2 g/dL (3.5-5.7); Albumin/Globulin Ratio 1.5 (1.1-2.2); Bilirubin,Total 0.3 mg/dL (0.3-1.0); Calcium 10.3 mg/dL (8.6-10.3); Globulin 2.1 g/dL (2.4-3.5); Magnesium 2.5 mg/dL (1.6-2.6); Potassium 4.6 mEq/L (3.5-5.1); Total Protein 5.3 g/dL (6.4-8.9)
[2017-08-17] MEDS: *HR* Heparin 5,000 UNIT/ML VIAL SQ SCH ×2 (08:20→16:33)
[2017-08-17] MEDS: Lisinopril 20 MG TABLET PO SCH (08:21)
[2017-08-17] MEDS: Cholecalciferol (D-3) 1,000 UNIT TABLET PO SCH (08:21)
[2017-08-17] MEDS: amLODIPine 5 MG TABLET PO SCH (08:21)
[2017-08-17] MEDS: Isosorbide MONOnitrate (24 HR) 60 MG TAB.ER.24H PO SCH (08:21)
[2017-08-17] MEDS: Nicotine 21 MG PATCH.TD24 TD SCH (08:22)
[2017-08-17] MEDS: Famotidine 20 MG TABLET PO SCH (08:22)
[2017-08-17] MEDS: methylPREDNISolone 125 MG/2 ML VIAL IVP SCH ×3 (08:23→23:24)
[2017-08-17] MEDS: Azithromycin 500 MG in D5% in Water 250 ML IVPB SCH (08:25)
[2017-08-17] MEDS: Budesonide/Formoterol 80/4.5 MDI IH SCH ×2 (08:27→20:35)
--- NOTE | 2017-08-17 09:52 | Internal Med Progress Note ---
Date of Encounter: 08/17/17 Time of Encounter: 09:30 - Assessment and plan (1) Abdominal pain Current Visit: Yes Status: Acute Assessment and plan: CT shows stool in cecal area. Will give laxative. Qualifiers: Abdominal location: right lower quadrant Qualified Code(s): R10.31 - Right lower quadrant pain (2) Acute respiratory failure with hypoxia Current Visit: Yes Status: Acute Assessment and plan: Continues to be on oxygen supplementation. Will wean as able. (3) Acute exacerbation of chronic obstructive airways disease Current Visit: Yes Status: Acute Assessment and plan: Continues to have significant secretions bilaterally. Not much movement with current regimen. Today had CT abdomen and noted L pleural effusion and dense airspace change. Will make NPO tonight. Discuss with pulm tomorrow - ? need bronch (4) Aneurysm of infrarenal abdominal aorta Current Visit: Yes Status: Chronic Assessment and plan: CT today shows increase in size of aneurysm. Will have vascular see for further recommendations. (5) CAD (coronary artery disease) Current Visit: Yes Status: Chronic Assessment and plan: Chronic issue. Qualifiers: Coronary Disease-Associated Artery/Lesion type: [place] artery [place] vs. transplanted heart: [place] heart Associated angina: without angina Qualified Code(s): I25.10 - Atherosclerotic heart disease of [place] coronary artery without angina pectoris (6) HTN (hypertension) Current Visit: Yes Status: Chronic Assessment and plan: BP appears to be fairly controlled on current regimen. Qualifiers: Hypertension type: essential hypertension Qualified Code(s): I10 - Essential (primary) hypertension (7) HLD (hyperlipidemia) Current Visit: Yes Status: Chronic Assessment and plan: Chronic issue. Qualifiers: Hyperlipidemia type: mixed hyperlipidemia Qualified Code(s): E78.2 - Mixed hyperlipidemia (8) Tobacco abuse Current Visit: Yes Status: Chronic Assessment and plan: Cessation counselling. Nicotine replacement. - Subjective Interval history: Ms Angulo is currently admitted for acute exac COPD and resp failure. She remains moderate to high risk due to potential for worsening clinical status. Ms Angulo is having R lower abdomen pain. No fever or chills. No worsening of back pain. No leg issues. Had some secretions come up this AM and said it was like "super glue" and very thick. No CP. - Constitutional Vitals: Temp Pulse Resp BP Pulse Ox 97.7 F 61 18 146/73 97 08/17/17 03:09 08/17/17 07:28 08/17/17 08:32 08/17/17 07:28 08/17/17 08:32 General appearance: Present: A&O X 3, answers questions appropriately - Head Head exam: Present: normocephalic - Eye Eye exam: Present: conjuntiva pink - ENT ENT exam: Present: mucous membranes dry - Respiratory Respiratory exam: Present: rhonchi, wheezes Additional comments: Diffuse end exp wheeze but better air movement noted. - Cardiovascular Cardiovascular exam: Present: RRR. Absent: tachycardia - GI/Abdominal GI/Abdominal exam: Present: normal bowel sounds, soft, tenderness. Absent: mass Additional comments: Discomfort in R lower abdomen with minimal palpation. - Extremities Exam Extremities exam: Present: warm. Absent: tenderness - Neurological Exam Neurological exam: Present: alert, oriented X3 - Skin Skin exam: Present: dry, warm Internal Medicine: Result - Labs CBC & Chem 7: 08/17/17 03:53 08/17/17 03:53 Labs: Short CBC 08/17/17 Range/Units 03:53 WBC 10.6 (4.3-11.1) K/mcL Hgb 12.1 (11.5-15.4) g/dL Hct 38.6 (35.3-44.9) % Plt Count 247 (140-400) K/mcL BMP 08/17/17 03:53 Sodium 132 L Potassium 4.6 Chloride 102 Carbon Dioxide 28 BUN 32 H Creatinine 1.11 Glucose 169 H Calcium 10.3 Liver Function 08/17/17 Range/Units 03:53 Total Bilirubin 0.3 (0.3-1.0) mg/dL AST 18 (13-39) Units/L ALT 24 (7-52) Units/L Alkaline Phosphatase 64 (34-104) Units/L Albumin 3.2 L (3.5-5.7) g/dL - ABG Interpretation ABG results: PT/INR, D-dimer D-Dimer 5806 ng/mLFEU (0-500) H 08/12/17 10:28 - Impressions Impressions Chest X-Ray 08/16/17 08:07 IMPRESSION: No acute process. Findings suggestive of COPD. D/ / Scout Stern MD / Scout Stern MD Interpreting Provider: Scout Stern MD Consult Discharge Plan - Plan Referrals: Pranav Harris DO [Primary Care Provider] - 08/19/17 2:00 pm
[2017-08-17] MEDS ORDERED: MOM Conc 10 ML UD.LIQ PO ONE (16:42)
[2017-08-17] MEDS: *HR* HYDROcodone/Acet 5/325 mg TABLET PO PRN (19:59)
[2017-08-17] MEDS: ALPRAZolam 0.5 MG TABLET PO PRN (19:59)
[2017-08-18] MEDS: Acetylcysteine 10% 2 ML INHSOL IH SCH ×7 (00:42→23:24)
[2017-08-18] MEDS: Ipratropium/Albuterol Neb 3 ML IH SCH ×7 (00:42→23:23)
[2017-08-18] MEDS: *HR* Heparin 5,000 UNIT/ML VIAL SQ SCH ×3 (03:08→15:49)
[2017-08-18 05:03] LABS: Hematocrit 38.8 % (35.3-44.9); Hemoglobin 12.7 g/dL (11.5-15.4); Mean Corpuscular HGB Conc 32.7 g/dL (31.6-35.5); Mean Corpuscular Hemoglobin 30.5 pg (28.0-33.3); Mean Corpuscular Volume 93.3 fL (83.0-100.0); Mean Platelet Volume 9.9 fL (9.4-12.4); Platelet Count 244 K/mcL (140-400); Red Blood Count 4.16 M/mcL (3.82-4.97); Red Cell Distribution Width 13.5 % (11.5-14.5)
[2017-08-18 07:47] LABS: BUN/Creatinine Ratio 33 (6-26); Blood Urea Nitrogen 34 mg/dL (8-23); Calcium 10.3 mg/dL (8.6-10.3); Carbon Dioxide 28 mEq/L (23-29); Chloride 106 mEq/L (98-107); Glucose 142 mg/dL (70-105); Osmolality,Calculated 290 (280-300); Potassium 5.2 mEq/L (3.5-5.1); Sodium 135 mEq/L (136-145); eGFR For African Americans > 60 (> 60); eGFR For Non-African Americans 52 (> 60)
[2017-08-18] MEDS: methylPREDNISolone 125 MG/2 ML VIAL IVP SCH ×2 (08:53→15:49)
[2017-08-18] MEDS: Nicotine 21 MG PATCH.TD24 TD SCH (08:54)
--- NOTE | 2017-08-18 09:13 | Internal Med Progress Note ---
<Jeremy Mckinley - Last Filed: 08/18/17 09:50> Date of Encounter: 08/18/17 Time of Encounter: 08:40 - Assessment and plan (1) Acute respiratory failure with hypoxia Current Visit: Yes Status: Acute Assessment and plan: Due to acute exacerbation of COPD Patient reports cough, that is not productive but she reports thick, string- like mucus that she has to pull out with her fingers on occasion Vitals stable except for requiring supplemental oxygen for comfort and to maintain saturation Wheezing on auscultation still present Chest x-ray negative for acute findings Patient uses CPAP (without oxygen) at night for ZIYAD CT scan showed mild mucus plugging and heterogeneous thyroid Bilateral lower extremity Dopplers negative D-dimer 5800 - Likely, due to patient AAA VQ scan shows very low probability for PE Levaquin stopped 08/13 because of concerns of tongue swelling, talking to her it was more likely from dry mouth/tongue not swelling Continue supplemental oxygen as needed, wean as tolerated Continue IV steroids at 60 mg every 8 hours Solu-Medrol Will decrease as tolerated Continue breathing treatments of albuterol and ipratropium We will continue azithromycin Will continue guaifenesin Patient will likely benefit from education on proper use of her inhalers Will re-consult pulmonology for assistance in management Consider transitioning and held medication to nebulized upon discharge Including DuoNeb every 4-6 hours scheduled Is recommended the patient follow-up with pulmonology (2) Acute exacerbation of chronic obstructive airways disease Current Visit: Yes Status: Acute Assessment and plan: Plan the above (3) Aneurysm of infrarenal abdominal aorta Current Visit: Yes Status: Chronic Assessment and plan: Known AAA Has been increasing in size, currently 5.5cm Will consult vascular surgery (4) Abdominal pain Current Visit: Yes Status: Acute Assessment and plan: CT abd/pelv shows fecal matter in the cecum Miralax, senna-alf, and milk of magnesia for constipation Will add enema Qualifiers: Abdominal location: right lower quadrant Qualified Code(s): R10.31 - Right lower quadrant pain (5) Abnormal CT scan Current Visit: Yes Status: Chronic Assessment and plan: CT findings showed an enlarged heterogeneous thyroid gland Patient has acute exacerbation COPD, so unsure if symptoms related to thyroid dysfunction TSH normal at .466 Thyroid US shows multinodular goiter Recommend possible FNA as outpatient (6) Acute kidney injury Current Visit: Yes Status: Resolved Assessment and plan: Patient has baseline creatinine 0.8 which was elevated at 1.32 at admission This was likely due to dehydration After receiving IV fluids patient's serum creatinine improved We will continue to monitor renal function with daily labs Avoid potentially nephrotoxic agents (7) CAD (coronary artery disease) Current Visit: Yes Status: Chronic Assessment and plan: History of coronary artery disease S/P stents Continue aspirin, statin, and Plavix Qualifiers: Coronary Disease-Associated Artery/Lesion type: [place] artery [place] vs. transplanted heart: [place] heart Associated angina: without angina Qualified Code(s): I25.10 - Atherosclerotic heart disease of [place] coronary artery without angina pectoris (8) ZIYAD (obstructive sleep apnea) Current Visit: Yes Status: Chronic Assessment and plan: Patient has history of obstructive sleep apnea and uses CPAP at night Continue CPAP with supplemental oxygen if needed (9) GERD (gastroesophageal reflux disease) Current Visit: Yes Status: Chronic Assessment and plan: Stable continue home medication Qualifiers: Esophagitis presence: esophagitis presence not specified Qualified Code(s) : K21.9 - Gastro-esophageal reflux disease without esophagitis (10) HLD (hyperlipidemia) Current Visit: Yes Status: Chronic Assessment and plan: Stable, continue home medication Qualifiers: Hyperlipidemia type: mixed hyperlipidemia Qualified Code(s): E78.2 - Mixed hyperlipidemia (11) HTN (hypertension) Current Visit: Yes Status: Chronic Assessment and plan: Blood pressure slightly elevated in the 140s over 80s Lisinopril stopped last night due to concern of tongue swelling, likely patient just had dry mouth Blood pressure has remained stable Consider different medication for blood pressure if needed Continue to monitor Qualifiers: Hypertension type: essential hypertension Qualified Code(s): I10 - Essential (primary) hypertension (12) Tobacco abuse Current Visit: Yes Status: Chronic Assessment and plan: Patient reports having quit smoking 2 months ago Continues to use nicotine patch persistence of smoking cessation Patient states that she normally uses the nicotine patch during the day only Consider removing patch at night, per patient comfort Continue nicotine patch - Subjective Interval history: Patient reports having continued nonproductive cough but does report thick string-like secretions on occasion. She denies fever/chills, continues to report significant lower abdominal pain. Overall dyspnea has not improved much. - Constitutional Vitals: Temp Pulse Resp BP Pulse Ox 96.9 F L 61 15 137/78 99 08/18/17 07:48 03/26/18 07:48 08/18/17 07:58 08/18/17 07:48 08/18/17 07:58 General appearance: Present: A&O X 3, answers questions appropriately Exam: General: Cooperative, pleasant, mild distress, alert and oriented 3, answers questions appropriately HEENT: Normocephalic, atraumatic, Conjunctiva pink, sclera anicteric Respiratory: No accessory muscle usage, diffuse wheeze on auscultation Cardiovascular: Regular rate and rhythm, S1 and S2 present, no murmurs/rubs/ gallops/clicks appreciated GI/abdominal: Nondistended, tenderness to palpation in right lower quadrant, soft, normal bowel sounds, no peritoneal signs Extremities: No calf tenderness, noncyanotic, no pedal edema appreciated, warm, lower extremity pulses palpable and symmetrical Neurological: Alert and oriented 3, no facial droop, no focal deficits Skin: Dry, intact, normal color Internal Medicine: Result - Labs CBC & Chem 7: 08/18/17 03:59 08/18/17 06:33 Labs: Short CBC 08/18/17 Range/Units 03:59 WBC 12.4 H (4.3-11.1) K/mcL Hgb 12.7 (11.5-15.4) g/dL Hct 38.8 (35.3-44.9) % Plt Count 244 (140-400) K/mcL BMP 08/18/17 06:33 Sodium 135 L Potassium 5.2 H Chloride 106 Carbon Dioxide 28 BUN 34 H Creatinine 1.02 Glucose 142 H Calcium 10.3 - ABG Interpretation ABG results: PT/INR, D-dimer D-Dimer 5806 ng/mLFEU (0-500) H 08/12/17 10:28 - Impressions Impressions Abdomen/Pelvis CT 08/17/17 09:51 IMPRESSION: 1. Moderate stool in the cecum and proximal colon may indicate constipation. There is no evidence of bowel obstruction. 2. Stable diverticulosis. 3. Increased size of AAA now measuring up to 5.5 cm. Vascular surgery consultation recommended. 4. Left pleural effusion with dense airspace changes in the lower lobe. This is a new finding from a recent CT chest 08/12/2017. Recommend pulmonary follow-up and chest radiograph. RECOMMENDATIONS: Managing Abdominal Aortic Aneurysms 2.6-2.9 cm: Every 5 years* 3.0-3.4 cm: Every 3 years. 3.5-3.9 cm: Every 1 year. 4.0-4.4 cm: Every 1 year. Recommend vascular consultation. 4.5-5.4 cm: Every 6 months. Recommend vascular consultation. Greater than or equal to 5.5 cm: Referral to vascular surgeon. *For abdominal aortas with maximum diameter of 2.6-2.9 cm meeting criteria for AAA (>50% of proximal normal segment). Reference: J Vasc Surg. 2008;50(4 Suppl):S2-49 D/ / Leon Holman MD / Leon Holman MD Interpreting Provider: Leon Holman MD Consult Discharge Plan - Plan Referrals: Pranav Harris DO [Primary Care Provider] - 08/19/17 2:00 pm <Parviz Quintero - Last Filed: 08/18/17 16:33> Date of Encounter: 08/18/17 - Assessment and plan (1) Constipation by delayed colonic transit Current Visit: Yes Status: Acute Assessment and plan: Meds added. (2) Abdominal pain Current Visit: Yes Status: Acute Qualifiers: Abdominal location: right lower quadrant Qualified Code(s): R10.31 - Right lower quadrant pain (3) Acute respiratory failure with hypoxia Current Visit: Yes Status: Acute (4) Acute exacerbation of chronic obstructive airways disease Current Visit: Yes Status: Acute (5) Aneurysm of infrarenal abdominal aorta Current Visit: Yes Status: Chronic (6) CAD (coronary artery disease) Current Visit: Yes Status: Chronic Qualifiers: Coronary Disease-Associated Artery/Lesion type: [place] artery [place] vs. transplanted heart: [place] heart Associated angina: without angina Qualified Code(s): I25.10 - Atherosclerotic heart disease of [place] coronary artery without angina pectoris (7) HTN (hypertension) Current Visit: Yes Status: Chronic Qualifiers: Hypertension type: essential hypertension Qualified Code(s): I10 - Essential (primary) hypertension (8) HLD (hyperlipidemia) Current Visit: Yes Status: Chronic Qualifiers: Hyperlipidemia type: mixed hyperlipidemia Qualified Code(s): E78.2 - Mixed hyperlipidemia (9) Tobacco abuse Current Visit: Yes Status: Chronic - Constitutional Vitals: Temp Pulse Resp BP Pulse Ox 96.7 F L 55 14 130/70 98 08/18/17 15:56 08/18/17 15:56 08/18/17 15:56 08/18/17 15:56 08/18/17 15:56 Internal Medicine: Result - Labs CBC & Chem 7: 08/18/17 03:59 08/18/17 06:33 Labs: Short CBC 08/18/17 Range/Units 03:59 WBC 12.4 H (4.3-11.1) K/mcL Hgb 12.7 (11.5-15.4) g/dL Hct 38.8 (35.3-44.9) % Plt Count 244 (140-400) K/mcL BMP 08/18/17 06:33 Sodium 135 L Potassium 5.2 H Chloride 106 Carbon Dioxide 28 BUN 34 H Creatinine 1.02 Glucose 142 H Calcium 10.3 - ABG Interpretation ABG results: PT/INR, D-dimer D-Dimer 5806 ng/mLFEU (0-500) H 08/12/17 10:28 - Attending Attestation I examined this patient and my medical decision-making was reviewed with the Resident Physician on 08/18/17. I agree with the documented findings, disposition and treatment plan as described except to the extent set forth below. Ms Angulo is currently admitted with acute exac COPD and hypoxia. She remains moderate to high risk due to potential for worsening clinical status. Ms Angulo is doing incentive spirometry at this time. No fever or chills. Still with cough and congestion. Has not had BM yet Exam Alert Comfortable Mucus membranes dry Heart reg Lungs with less wheeze today Abd soft I/P 1. Exac COPD 2. Constipation Further diagnoses and plan as above.
--- NOTE | 2017-08-18 09:36 | Pulmonology Progress Note ---
Date of Encounter: 08/18/17 Time of Encounter: 09:15 Assessment and Plan (1) Acute respiratory failure with hypoxia Current Visit: Yes Status: Acute Patient is on O2 supplementation she might need O2 as an outpatient will need to ascertain O2 needs on discharge . (2) Acute exacerbation of chronic obstructive airways disease Current Visit: Yes Status: Acute Patient presentation can be multifactorial COPD exacerbation there can be diastolic heart failure component complicating the picture . Agree with continue the current steroids and bronchodilators . The Mucus plugging is in the sub-sub segmental bronchus since there is no mucus plugging in the segmental bronchi with no associated volume loss i dont think bronchoscopy will benefit her now with risk being high with current COPD exacerbation will hold off bronchoscopy for now unless develops volume loss at that point it worth to inspect the airway , radiologically there is no suspicion for endobronchial lesion . Spoke with RN to engage patient to do incentive spirometry , RT to aggressive bronchopulmonary toileting with flutter valve and twice daily percussor therapy . Spoke with Resident in charge patient might benefit from diuresis with background of diastolic heart failure . (3) ZIYAD (obstructive sleep apnea) Current Visit: Yes Status: Chronic To continue BIPAP for now on discharge send home on home CPAP settings (4) Tobacco abuse Current Visit: Yes Status: Chronic Patient stopped 3 months ago to continue abstinence from smoking . Subjective Principal diagnosis: COPD exacerbation Interval history: 82 year old female admitted for COPD exacerbation , with some diastolic dysfunction with dilated LA atrium according to patient the symptoms started suddenly chest pain and her blood pressure was high , during the hospital course she is treated as COPD exacerbation she is slowly getting better , had a pulmonary perfusion imaging didnt show any filling defect very low probability for PE . CT Chest showed some mucus plugging in his sub-sub segmental bronchi with no much volume loss , CT Abdomen and pelvis which showed some left lower lobe atelectasis with some minimal pleural effusion. Objective PUL Vital signs: Last Vital Signs Temp 96.9 F L 08/18/17 07:48 Pulse 61 08/18/17 07:48 Resp 15 08/18/17 07:58 BP 137/78 08/18/17 07:48 Pulse Ox 99 08/18/17 07:58 Auscultation: bilateral: wheezes (scattered wheezes ), other (some scattered bibasilar crackles ) Results - Laboratory Findings CBC and BMP: 08/18/17 03:59 08/18/17 06:33 PT/INR, D-dimer D-Dimer 5806 ng/mLFEU (0-500) H 08/12/17 10:28 Abnormal lab findings: Abnormal lab results WBC 12.4 K/mcL (4.3-11.1) H 08/18/17 03:59 Neutrophils # 9.0 K/mcL (1.6-8.9) H 08/15/17 06:09 D-Dimer 5806 ng/mLFEU (0-500) H 08/12/17 10:28 Sodium 135 mEq/L (136-145) L 08/18/17 06:33 Potassium 5.2 mEq/L (3.5-5.1) H 08/18/17 06:33 BUN 34 mg/dL (8-23) H 08/18/17 06:33 Est GFR (Non-Af Amer) 52 (> 60) L 08/18/17 06:33 BUN/Creatinine Ratio 33 (6-26) H 08/18/17 06:33 Glucose 142 mg/dL (70-105) H 08/18/17 06:33 POC Glucose 183 (58-89) H 08/14/17 11:18 Troponin I 0.07 ng/mL (< 0.04) H* 08/12/17 15:39 B-Natriuretic Peptide 197 pg/mL (Less than 100) H 08/12/17 03:49 Serum Total Protein 5.3 g/dL (6.4-8.9) L 08/17/17 03:53 Albumin 3.2 g/dL (3.5-5.7) L 08/17/17 03:53 Globulin 2.1 g/dL (2.4-3.5) L 08/17/17 03:53 HDL Cholesterol 77 mg/dL (40-59) H 08/12/17 03:49 Ur Specific [place] 1.026 (1.010-1.025) H 08/12/17 04:15 Urine Protein 30 mg/dL (Neg-Trace) H 08/12/17 04:15 Urine Blood Moderate (Negative) H 08/12/17 04:15 Urine Microscopic RBC 5-15 per hpf (0-3) H 08/12/17 04:15 Ur Squamous Epith Cells Many per lpf (None-Few) H 08/12/17 04:15 - Clinical Findings Intake & Output: Intake & Output 08/17/17 08/18/17 08/18/17 23:59 07:59 15:59 Intake Total 60 / 60 Output Total 500 / 500 Balance 60 / 60 -500 / -500 Weight 73.391 kg Consult Discharge Plan - Plan Referrals: Pranav Harris DO [Primary Care Provider] - 08/19/17 2:00 pm
[2017-08-18] MEDS: amLODIPine 5 MG TABLET PO SCH (10:30)
[2017-08-18] MEDS: Isosorbide MONOnitrate (24 HR) 60 MG TAB.ER.24H PO SCH (10:30)
[2017-08-18] MEDS: Cholecalciferol (D-3) 1,000 UNIT TABLET PO SCH (10:30)
[2017-08-18] MEDS: Lisinopril 20 MG TABLET PO SCH (10:30)
[2017-08-18] MEDS: Azithromycin 500 MG in D5% in Water 250 ML IVPB SCH (10:30)
[2017-08-18] MEDS: Famotidine 20 MG TABLET PO SCH (10:30)
[2017-08-18] MEDS: Budesonide/Formoterol 80/4.5 MDI IH SCH ×2 (11:09→19:31)
[2017-08-18] MEDS: Simethicone 80 MG TAB.CHEW PO PRN (15:42)
[2017-08-18] MEDS: *HR* HYDROcodone/Acet 5/325 mg TABLET PO PRN ×2 (15:42→22:39)
[2017-08-18] MEDS: Sennosides/Docusate Sodium TABLET PO PRN (15:42)
--- NOTE | 2017-08-18 17:35 | Vascular/Endovasc Consult Note ---
Date of Encounter: 08/18/17 Time of Encounter: 08:45 Assessment and Plan (1) ZIYAD (obstructive sleep apnea) Current Visit: Yes Status: Chronic Patient uses CPAP for controlling obstructive sleep apnea. (2) Acute respiratory failure with hypoxia Current Visit: Yes Status: Acute Patient is responding to medical therapy for COPD exacerbation. Pulmonary consultation is pending regarding possible bronchoscopy. (3) Aneurysm of infrarenal abdominal aorta Current Visit: Yes Status: Chronic Patient has an asymptomatic 5.5 cm abdominal aortic aneurysm with a bilobed appearance. The patient has a very small area of normal aorta at the level of the renals. I discussed with the patient and her family that endovascular treatment here at [place] may not be feasible due to her anatomy and that she may need a more advanced fenestrated graft in order to address her problem. However at this time the aneurysm is a secondary issue. Her pulmonary status is the most limiting and obviously she is no candidate for general anesthesia with her active pulmonary problems. I stressed this to the patient. Once the patient is discharged we will have the patient follow up again with Dr. Selby for further discussion of treatment options. All questions were answered. - History of Present Illness Consult date: 08/18/17 Requesting physician: Parviz Quintero Consult reason: Increasing size of abdominal aortic aneurysm Chief complaint: Shortness of breath History of present illness: Ms. Angulo is a 82 year old female Who was admitted about one week ago for problems with shortness of breath and exacerbation of chronic COPD. On evaluation of the patient's status she required a CT scan. This was performed over the weekend and demonstrated that the abdominal aortic aneurysm measured 5.5 cm. This was a significant change from the previous measurement by ultrasound earlier this month of 4.6 cm. The patient was in the outpatient clinic to see Dr. Selby who follows the aneurysm and other vascular issues. Because of the initial reading of 4.6 cm on the ultrasound she was placed on surveillance scan basis. However now with the increased size documented by CT scan vascular surgery was asked to see the patient again at this time. The patient has had multiple vascular interventions. She has known severe COPD. In addition she has significant COPD. She is being seen by pulmonology as well as being treated by the hospitalist service. She has a history of tobacco abuse. She was recently found to have a multinodular goiter. The patient has no active symptoms from the aneurysm. I have personally reviewed the CT scan images. This demonstrates an infrarenal abdominal aortic aneurysm of approximate 5.5 cm in diameter. Importantly however is the suprarenal component of the abdominal aorta demonstrates aneurysmal change and there is only a very small neck at the location of the renal arteries. This is unlikely to be suitable for endovascular intervention. She remains a poor candidate for open aortic surgery from a pulmonary standpoint. Past Med Surg Social Fam HX - Past Medical History Medical history: CHF, COPD, coronary artery disease, hyperlipidemia, hypertension, myocardial infarction Psychiatric history: no psych history - Past Surgical History Surgical History: appendectomy, cholecystectomy, hysterectomy, orthopedic, other - Social History Smoking Status: Former smoker Smokeless Tobacco Status: No Alcohol use: none Drug use: none - Family History Father Living Status: Hx Family Cancer: Yes (bone) Mother Living Status: Medications and Allergies ALPRAZolam [Xanax 0.5 MG Tablet] 0.25 - 0.5 mg PO DAILY PRN 10/15/15 [History] Atorvastatin [Lipitor] 40 mg PO HS 10/15/15 [History] Cholecalciferol (D-3) [Vitamin D] 1,000 unit PO DAILY 10/15/15 [History] Clopidogrel [Plavix] 75 mg PO DAILY 10/15/15 [History] Furosemide [Lasix] 20 mg PO Q48H 10/15/15 [History] HYDROcodone/Acet 5/325 mg [[place] 5-325 mg] 0.5 - 1 tab PO BID PRN 10/15/15 [ History] Lisinopril [Zestril] 20 mg PO DAILY 10/15/15 [History] Ranitidine HCl [Heartburn Relief] 150 mg PO DAILY 10/15/15 [History] amLODIPine [Norvasc] 5 mg PO DAILY 10/15/15 [History] Albuterol Sulfate [Proair Hfa] 2 puff IH Q4-6H PRN 08/11/17 [History] Carvedilol 12.5 mg PO BID 08/11/17 [History] Fluticasone/Salmeterol [Advair Hfa 115-21 Mcg Inhaler] 2 puff IH BID 08/11/17 [ History] Gabapentin [Neurontin] 100 mg PO AD PRN 08/11/17 [History] Isosorbide MONOnitrate (24 HR) [Imdur] 60 mg PO DAILY 08/11/17 [History] Nicotine Patch [Nicoderm] 21 mg TD DAILY 08/11/17 [History] Simethicone [Gas-X] 80 mg PO ACHS PRN 08/11/17 [History] 3 Allergy/AdvReac Type Severity Reaction Status Date / Time Benzonatate Allergy Confusion Verified 08/11/17 19:32 [From Mikala Montejo] Iodinated Contrast- Oral and AdvReac Mild See Verified 08/11/17 19:32 IV Dye Comments [Iodinated Contrast Media - IV Dye] codeine AdvReac Itching Verified 08/11/17 19:32 All Systems Review: The remainder of the systems were reviewed and are negative Exam Vital Signs, Last 4 Hours Temp Pulse Resp BP Pulse Ox 08/18/17 15:56 96.7 F L 55 14 130/70 98 08/18/17 15:32 16 93 General: Present: Conversant. Absent: No Apparent Distress Cardiac: Present: Reg Rate and Rhythm Lungs: Present: Decreased breath sounds Neuro: Present: Alert and responsive, No focal deficits noted Abdomen: Present: Soft, Non-tender, Other (Positive palpable abdominal aortic aneurysm. It is nontender. There are no signs of tammy-umbilical or flank ecchymosis.) Skin: Present: No rashes noted on visualized skin Consult Discharge Plan - Plan Referrals: Pranav Harris DO [Primary Care Provider] - 08/19/17 2:00 pm
[2017-08-18] MEDS: cefTRIAXone 1,000 MG in Water for inj. (sterile) 20 ML 10 ML IVP SCH (23:11)
[2017-08-19] MEDS: *HR* Heparin 5,000 UNIT/ML VIAL SQ SCH ×3 (00:05→15:37)
[2017-08-19] MEDS: methylPREDNISolone 125 MG/2 ML VIAL IVP SCH ×2 (00:05→08:59)
[2017-08-19] MEDS: Ipratropium/Albuterol Neb 3 ML IH SCH ×6 (04:10→23:22)
[2017-08-19] MEDS: Acetylcysteine 10% 2 ML INHSOL IH SCH ×6 (04:10→23:22)
[2017-08-19 04:54] LABS: Hematocrit 38.3 % (35.3-44.9); Hemoglobin 12.7 g/dL (11.5-15.4); Mean Corpuscular HGB Conc 33.2 g/dL (31.6-35.5); Mean Corpuscular Hemoglobin 30.5 pg (28.0-33.3); Mean Corpuscular Volume 91.8 fL (83.0-100.0); Mean Platelet Volume 9.5 fL (9.4-12.4); Nucleated Red Blood Cells 0.2 /100 WBC (0); Platelet Count 249 K/mcL (140-400); Red Blood Count 4.17 M/mcL (3.82-4.97); Red Cell Distribution Width 13.7 % (11.5-14.5)
[2017-08-19 05:09] LABS: BUN/Creatinine Ratio 39 (6-26); Blood Urea Nitrogen 37 mg/dL (8-23); Calcium 10.6 mg/dL (8.6-10.3); Carbon Dioxide 29 mEq/L (23-29); Chloride 101 mEq/L (98-107); Glucose 168 mg/dL (70-105); Osmolality,Calculated 287 (280-300); Potassium 5.2 mEq/L (3.5-5.1); Sodium 132 mEq/L (136-145); eGFR For African Americans > 60 (> 60); eGFR For Non-African Americans 57 (> 60)
[2017-08-19 05:26] LABS: Lymphocytes # 1.3 K/mcL (0.6-4.6); Monocytes # 1.3 K/mcL (0.0-1.3); Neutrophils # 10.5 K/mcL (1.6-8.9); Platelet Estimate Normal (Normal); Smudge Cells Present (Not Present)
--- NOTE | 2017-08-19 06:58 | Electrocardiograph Report ---
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
[2017-08-19] MEDS: Lisinopril 20 MG TABLET PO SCH (09:00)
[2017-08-19] MEDS: Simethicone 80 MG TAB.CHEW PO PRN (09:00)
[2017-08-19] MEDS: Isosorbide MONOnitrate (24 HR) 60 MG TAB.ER.24H PO SCH (09:00)
[2017-08-19] MEDS: amLODIPine 5 MG TABLET PO SCH (09:00)
[2017-08-19] MEDS: Cholecalciferol (D-3) 1,000 UNIT TABLET PO SCH (09:00)
[2017-08-19] MEDS: Sennosides/Docusate Sodium TABLET PO PRN (09:00)
[2017-08-19] MEDS: Famotidine 20 MG TABLET PO SCH (09:01)
[2017-08-19] MEDS: Nicotine 21 MG PATCH.TD24 TD SCH (09:01)
--- NOTE | 2017-08-19 11:24 | Pulmonology Progress Note ---
Date of Encounter: 08/19/17 Time of Encounter: 11:15 Assessment and Plan (1) Acute respiratory failure with hypoxia Current Visit: Yes Status: Acute Patient is on O2 supplementation she might need O2 as an outpatient will need to ascertain O2 needs on discharge . (2) Acute exacerbation of chronic obstructive airways disease Current Visit: Yes Status: Acute Patient presentation can be multifactorial COPD exacerbation there can be diastolic heart failure component complicating the picture . Agree with continue the current steroids and bronchodilators . The Mucus plugging is in the sub-sub segmental bronchus since there is no mucus plugging in the segmental bronchi with no associated volume loss i dont think bronchoscopy will benefit her now with risk being high with current COPD exacerbation will hold off bronchoscopy for now unless develops volume loss at that point it worth to inspect the airway , radiologically there is no suspicion for endobronchial lesion . Spoke with RN to engage patient to do incentive spirometry , RT to aggressive bronchopulmonary toileting with flutter valve and twice daily percussor therapy . Spoke with Resident in charge patient might benefit from diuresis with background of diastolic heart failure . 08/19 To continue regimen spoke with primary team to continue diuresis as tolerated . On discharge patient should go home on prolonged taper and total 10 day course of antibiotics (3) ZIYAD (obstructive sleep apnea) Current Visit: Yes Status: Chronic To continue BIPAP for now on discharge send home on home CPAP settings (4) Tobacco abuse Current Visit: Yes Status: Chronic Patient stopped 3 months ago to continue abstinence from smoking . (5) Abdominal pain Current Visit: Yes Status: Acute CT abdomen showed feces , no acute process , bowel regimen according to primary team spoke with [employer] MANAGER Nicolasa Bird to consider surgery consult if this abdominal pain is improving Qualifiers: Abdominal location: right lower quadrant Qualified Code(s): R10.31 - Right lower quadrant pain Subjective Principal diagnosis: COPD exacerbation Interval history: 82 year old female admitted for COPD exacerbation , with some diastolic dysfunction with dilated LA atrium according to patient the symptoms started suddenly chest pain and her blood pressure was high , during the hospital course she is treated as COPD exacerbation she is slowly getting better , had a pulmonary perfusion imaging didnt show any filling defect very low probability for PE . CT Chest showed some mucus plugging in his sub-sub segmental bronchi with no much volume loss , CT Abdomen and pelvis which showed some left lower lobe atelectasis with some minimal pleural effusion. Patient says her breathing is lot better , denies any chest pain or tightness , denies any orthopnea or PND . patient complains of Right lower quadrant abdominal pain Objective PUL Vital signs: Last Vital Signs Temp 97.3 F L 08/19/17 07:52 Pulse 58 08/19/17 07:52 Resp 16 08/19/17 07:52 BP 143/76 08/19/17 07:52 Pulse Ox 92 08/19/17 09:00 Auscultation: bilateral: diminished breath sounds (basilar ), wheezes (minimal scattered wheezes ) Gastrointestinal: rebound tenderness (right iliac fossa ) Results - Laboratory Findings CBC and BMP: 08/19/17 04:20 08/19/17 04:20 PT/INR, D-dimer D-Dimer 5806 ng/mLFEU (0-500) H 08/12/17 10:28 Abnormal lab findings: Abnormal lab results WBC 13.4 K/mcL (4.3-11.1) H 08/19/17 04:20 Metamyelocytes % 2.0 % (0) H 08/19/17 04:20 Neutrophils # 10.5 K/mcL (1.6-8.9) H 08/19/17 04:20 Nucleated RBCs/100 WBC 0.2 /100 WBC (0) H 08/19/17 04:20 Smudge Cells Present (Not Present) A 08/19/17 04:20 D-Dimer 5806 ng/mLFEU (0-500) H 08/12/17 10:28 Sodium 132 mEq/L (136-145) L 08/19/17 04:20 Potassium 5.2 mEq/L (3.5-5.1) H 08/19/17 04:20 BUN 37 mg/dL (8-23) H 08/19/17 04:20 Est GFR (Non-Af Amer) 57 (> 60) L 08/19/17 04:20 BUN/Creatinine Ratio 39 (6-26) H 08/19/17 04:20 Glucose 168 mg/dL (70-105) H 08/19/17 04:20 POC Glucose 183 (58-89) H 08/14/17 11:18 Calcium 10.6 mg/dL (8.6-10.3) H 08/19/17 04:20 Troponin I 0.07 ng/mL (< 0.04) H* 08/12/17 15:39 B-Natriuretic Peptide 197 pg/mL (Less than 100) H 08/12/17 03:49 Serum Total Protein 5.3 g/dL (6.4-8.9) L 08/17/17 03:53 Albumin 3.2 g/dL (3.5-5.7) L 08/17/17 03:53 Globulin 2.1 g/dL (2.4-3.5) L 08/17/17 03:53 HDL Cholesterol 77 mg/dL (40-59) H 08/12/17 03:49 Ur Specific [place] 1.026 (1.010-1.025) H 08/12/17 04:15 Urine Protein 30 mg/dL (Neg-Trace) H 08/12/17 04:15 Urine Blood Moderate (Negative) H 08/12/17 04:15 Urine Microscopic RBC 5-15 per hpf (0-3) H 08/12/17 04:15 Ur Squamous Epith Cells Many per lpf (None-Few) H 08/12/17 04:15 - Clinical Findings Intake & Output: Intake & Output 08/18/17 08/19/17 08/19/17 23:59 07:59 15:59 Weight 74.026 kg Consult Discharge Plan - Plan Referrals: Pranav Harris DO [Primary Care Provider] -
[2017-08-19] MEDS: Budesonide/Formoterol 80/4.5 MDI IH SCH ×2 (11:29→19:42)
--- NOTE | 2017-08-19 11:40 | Internal Med Progress Note ---
Date of Encounter: 08/19/17 Time of Encounter: 11:40 - Assessment and plan (1) Acute respiratory failure with hypoxia Current Visit: Yes Status: Acute Assessment and plan: -Secondary to exacerbation of COPD-patient reports cough is nonproductive thick string-like mucus continues to have wheezing throughout lung poe CT did show mild mucus plugging BQ scan showed very low probability for PE. She was on Levaquin however this was stopped due to tense swelling Continue oxygen as needed maintain SPO2 greater than 92% Continue IV steroids Solu-Medrol 60 every 8 to taper Continue with azithromycin Pulmonary has been consulted appreciate their assistance-continue with aggressive pulmonary toileting per pulmonary's recommendations. Continue with chest percussing (2) Acute exacerbation of chronic obstructive airways disease Current Visit: Yes Status: Acute Assessment and plan: As above (3) Abdominal pain Current Visit: Yes Status: Acute Assessment and plan: Patient is complaining of right lower abdominal pain CT of abdomen and pelvis shows fecal matter in the cecum she has been given MiraLAX and a call milk of magnesia as well as an enema without any relief. I did discuss this case with Dr. Ramos-who suggest continued laxative-max citrate and if no improvement to consult surgery. Qualifiers: Abdominal location: right lower quadrant Qualified Code(s): R10.31 - Right lower quadrant pain (4) Abnormal CT scan Current Visit: Yes Status: Chronic Assessment and plan: CT findings showed an enlarged heterogeneous thyroid gland Unsure if this is related to COPD exacerbation or thyroid dysfunction TSH normal at 0.466 Ultrasound shows multi-nodule goiter Possible FNA as outpatient (5) Aneurysm of infrarenal abdominal aorta Current Visit: Yes Status: Chronic Assessment and plan: Known AAA has been increasing in size currently 5.5 cm [place] surgery has been consulted Advise per vascular note "treatment here at [facility] may not be feasible due to her anatomy and that she may need a more advanced fenestrated graft in order to address her problem. However at this time the aneurysm is a secondary issue. Her pulmonary status is the most limiting and obviously she is no candidate for general anesthesia with her active pulmonary problems. " (6) CAD (coronary artery disease) Current Visit: Yes Status: Chronic Assessment and plan: History of CAD witnessed dents continue with aspirin and Plavix and statin nitroglycerin as needed for chest pain Qualifiers: Coronary Disease-Associated Artery/Lesion type: [place] artery [place] vs. transplanted heart: nome heart Associated angina: without angina Qualified Code(s): I25.10 - Atherosclerotic heart disease of [place] coronary artery without angina pectoris (7) GERD (gastroesophageal reflux disease) Current Visit: Yes Status: Chronic Assessment and plan: Continue with home medications Qualifiers: Esophagitis presence: esophagitis presence not specified Qualified Code(s) : K21.9 - Gastro-esophageal reflux disease without esophagitis (8) HLD (hyperlipidemia) Current Visit: Yes Status: Acute Assessment and plan: Continue with statin Qualifiers: Hyperlipidemia type: mixed hyperlipidemia Qualified Code(s): E78.2 - Mixed hyperlipidemia (9) HTN (hypertension) Current Visit: Yes Status: Chronic Assessment and plan: Presently stable continue with home medications Qualifiers: Hypertension type: essential hypertension Qualified Code(s): I10 - Essential (primary) hypertension (10) ZIYAD (obstructive sleep apnea) Current Visit: Yes Status: Chronic Assessment and plan: Continuous CPAP at night (11) Tobacco abuse Current Visit: Yes Status: Chronic (12) Acute kidney injury Current Visit: Yes Status: Resolved Assessment and plan: On admission creatinine was 1.3 to baseline appears to be 0.8 most likely secondary to dehydration she was given IV fluids and her creatinine improved. Continue to monitor Avoid nephrotoxins (13) DVT prophylaxis Current Visit: Yes Status: Acute Assessment and plan: Heparin subcutaneous - Time Spent With Patient less than 15 minutes - Subjective Interval history: Patient is new to me I did review medical records. Patient does not complain any shortness of breath at this time however she does complain of right lower abdominal quadrant pain on movement with tenuousness as well as constipation. CT of abdomen completed 2 days ago does reveal moderate stool in the cecum and proximal: No evidence of bowel obstruction. Stable diverticulosis. I did discuss this with Dr. Ramos who advised continued laxative treatment, no improvement to consult surgery. - Constitutional Vitals: Temp Pulse Resp BP Pulse Ox 97.3 F L 58 16 143/76 92 08/19/17 07:52 08/19/17 07:52 08/19/17 11:30 08/19/17 07:52 08/19/17 11:30 General appearance: Present: A&O X 3, answers questions appropriately - Head Head exam: Present: atraumatic, normocephalic - Eye Eye exam: Present: PERRL, conjuntiva pink, sclera anicteric Pupils: Present: PERRL - Neck Neck exam general surgery: Present: supple, trachea midline. Absent: lymphadenopathy - Respiratory Respiratory exam: Present: CTAB. Absent: accessory muscle use, rales, rhonchi, wheezes - Cardiovascular Cardiovascular exam: Present: RRR, +S1, +S2. Absent: diastolic murmur, gallop, rubs, systolic murmur - GI/Abdominal GI/Abdominal exam: Present: normal bowel sounds, soft, tenderness, no peritoneal signs. Absent: distended - Extremities Exam Extremities exam: Present: warm, radial pulses palpable and symmetrical. Absent : calf tenderness, cyanotic, pedal edema - Neurological Exam Neurological exam: Present: CN II-XII intact, oriented X3, no focal deficits. Absent: pronater drift, facial droop, speech deficit - Skin Skin exam: Present: dry, intact Internal Medicine: Result - Labs CBC & Chem 7: 08/19/17 04:20 08/19/17 04:20 Labs: Short CBC 08/19/17 Range/Units 04:20 WBC 13.4 H (4.3-11.1) K/mcL Hgb 12.7 (11.5-15.4) g/dL Hct 38.3 (35.3-44.9) % Plt Count 249 (140-400) K/mcL Neutrophils # 10.5 H (1.6-8.9) K/mcL BMP 08/19/17 04:20 Sodium 132 L Potassium 5.2 H Chloride 101 Carbon Dioxide 29 BUN 37 H Creatinine 0.95 Glucose 168 H Calcium 10.6 H - ABG Interpretation ABG results: PT/INR, D-dimer D-Dimer 5806 ng/mLFEU (0-500) H 08/12/17 10:28 Consult Discharge Plan - Plan Referrals: Pranav Harris DO [Primary Care Provider] -
[2017-08-19] MEDS ORDERED: Furosemide 20 MG/2 ML VIAL IVP ONE (12:01)
[2017-08-19] MEDS: Bisacodyl 10 MG RECTAL SUPPOSITORY RC SCH (12:47)
[2017-08-19] MEDS: MethylPREDNISolone 40 MG/ML VIAL IVP SCH (15:37)
[2017-08-19] MEDS: *HR* HYDROcodone/Acet 5/325 mg TABLET PO PRN (21:44)
[2017-08-19] MEDS: ALPRAZolam 0.5 MG TABLET PO PRN (21:45)
[2017-08-19] MEDS ORDERED: Milk and Molasses Enema 200 ML RC ONE (22:40)
[2017-08-20] MEDS: MethylPREDNISolone 40 MG/ML VIAL IVP SCH ×4 (00:05→23:26)
[2017-08-20] MEDS: *HR* Heparin 5,000 UNIT/ML VIAL SQ SCH ×4 (00:05→23:22)
[2017-08-20] MEDS: Acetylcysteine 10% 2 ML INHSOL IH SCH ×6 (04:01→23:41)
[2017-08-20] MEDS: Ipratropium/Albuterol Neb 3 ML IH SCH ×6 (04:01→23:40)
--- NOTE | 2017-08-20 06:33 | Electrocardiograph Report ---
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
[2017-08-20] MEDS: Cholecalciferol (D-3) 1,000 UNIT TABLET PO SCH (08:43)
[2017-08-20] MEDS: Lisinopril 20 MG TABLET PO SCH (08:43)
[2017-08-20] MEDS: amLODIPine 5 MG TABLET PO SCH (08:43)
[2017-08-20] MEDS: Famotidine 20 MG TABLET PO SCH (08:43)
[2017-08-20] MEDS: Isosorbide MONOnitrate (24 HR) 60 MG TAB.ER.24H PO SCH (08:43)
[2017-08-20] MEDS: Nicotine 21 MG PATCH.TD24 TD SCH (08:44)
[2017-08-20] MEDS: Bisacodyl 10 MG RECTAL SUPPOSITORY RC SCH (08:44)
[2017-08-20] MEDS ORDERED: Milk and Molasses Enema 200 ML RC ONE (08:49)
--- NOTE | 2017-08-20 10:09 | Internal Med Progress Note ---
Date of Encounter: 08/20/17 Time of Encounter: 10:07 - Assessment and plan (1) Acute respiratory failure with hypoxia Current Visit: Yes Status: Acute Assessment and plan: -Secondary to exacerbation of COPD-patient reports cough improving, decreased wheezing CT did show mild mucus plugging VQ scan showed very low probability for PE. She was on Levaquin however this was stopped due to swelling Continue oxygen as needed maintain SPO2 greater than 92% Continue IV steroids Solu-Medrol 60 every 8 to taper Continue with azithromycin Pulmonary has been consulted appreciate their assistance-continue with aggressive pulmonary toileting per pulmonary's recommendations. Continue with chest percussing (2) Acute exacerbation of chronic obstructive airways disease Current Visit: Yes Status: Acute Assessment and plan: As above (3) Abdominal pain Current Visit: Yes Status: Acute Assessment and plan: Patient is complaining of right lower abdominal pain CT of abdomen and pelvis shows fecal matter in the cecum she has been given MiraLAX and a call milk of magnesia as well as an enema without any relief. Patient was given mag citrate apparently she refused one dose. I checked the rectal vault clear was clear patient has not been experiencing any nausea or vomiting tolerating food, she has been passing gas. Obtained a KUB which showed nonspecific bowel gas pattern without definite findings for obstruction or evidence of intraperitoneal free air gaseous distention of stomach nonspecific. She has not had a bowel movement since 08/11/2017. We will give MoM enema Qualifiers: Abdominal location: right lower quadrant Qualified Code(s): R10.31 - Right lower quadrant pain (4) Abnormal CT scan Current Visit: Yes Status: Chronic Assessment and plan: CT findings showed an enlarged heterogeneous thyroid gland Unsure if this is related to COPD exacerbation or thyroid dysfunction TSH normal at 0.466 Ultrasound shows multi-nodule goiter Possible FNA as outpatient (5) Aneurysm of infrarenal abdominal aorta Current Visit: Yes Status: Chronic Assessment and plan: Known AAA has been increasing in size currently 5.5 cm Vascular surgery has been consulted Advise per vascular note "treatment here at [place] may not be feasible due to her anatomy and that she may need a more advanced fenestrated graft in order to address her problem. However at this time the aneurysm is a secondary issue. Her pulmonary status is the most limiting and obviously she is no candidate for general anesthesia with her active pulmonary problems. " (6) CAD (coronary artery disease) Current Visit: Yes Status: Chronic Assessment and plan: History of CAD witnessed dents continue with aspirin and Plavix and statin nitroglycerin as needed for chest pain Qualifiers: Coronary Disease-Associated Artery/Lesion type: [place] artery [place] vs. transplanted heart: [place] heart Associated angina: without angina Qualified Code(s): I25.10 - Atherosclerotic heart disease of [place] coronary artery without angina pectoris (7) GERD (gastroesophageal reflux disease) Current Visit: Yes Status: Chronic Assessment and plan: Continue with home medications Qualifiers: Esophagitis presence: esophagitis presence not specified Qualified Code(s) : K21.9 - Gastro-esophageal reflux disease without esophagitis (8) HLD (hyperlipidemia) Current Visit: Yes Status: Acute Assessment and plan: Continue with statin Qualifiers: Hyperlipidemia type: mixed hyperlipidemia Qualified Code(s): E78.2 - Mixed hyperlipidemia (9) HTN (hypertension) Current Visit: Yes Status: Chronic Assessment and plan: Presently stable continue with home medications Qualifiers: Hypertension type: essential hypertension Qualified Code(s): I10 - Essential (primary) hypertension (10) ZIYAD (obstructive sleep apnea) Current Visit: Yes Status: Chronic Assessment and plan: Continuous CPAP at night (11) Tobacco abuse Current Visit: Yes Status: Chronic Assessment and plan: Patient stopped smoking 3 months ago continue abstinence from smoking (12) Acute kidney injury Current Visit: Yes Status: Resolved Assessment and plan: On admission creatinine was 1.3 to baseline appears to be 0.8 most likely secondary to dehydration she was given IV fluids and her creatinine improved. Continue to monitor Avoid nephrotoxins (13) DVT prophylaxis Current Visit: Yes Status: Acute Assessment and plan: Heparin subcutaneous - Subjective Interval history: Patient does not complain of SOB or cough. She cont to experience constipation. She is passing gas tolerating oral intake. Checked rectal vault, clear of stool will check KUB. - Constitutional Vitals: Temp Pulse Resp BP Pulse Ox 97.5 F L 59 15 149/71 98 08/20/17 07:24 08/20/17 07:24 08/20/17 07:47 08/20/17 07:24 08/20/17 07:47 General appearance: Present: A&O X 3, answers questions appropriately - Head Head exam: Present: atraumatic, normocephalic - Eye Eye exam: Present: PERRL, conjuntiva pink, sclera anicteric Pupils: Present: PERRL - Neck Neck exam general surgery: Present: supple, trachea midline. Absent: lymphadenopathy - Respiratory Respiratory exam: Present: CTAB. Absent: accessory muscle use, rales, rhonchi, wheezes - Cardiovascular Cardiovascular exam: Present: RRR, +S1, +S2. Absent: diastolic murmur, gallop, rubs, systolic murmur - GI/Abdominal GI/Abdominal exam: Present: normal bowel sounds, soft, tenderness, no peritoneal signs. Absent: distended - Extremities Exam Extremities exam: Present: warm, radial pulses palpable and symmetrical. Absent : calf tenderness, cyanotic, pedal edema - Neurological Exam Neurological exam: Present: CN II-XII intact, oriented X3, no focal deficits. Absent: pronater drift, facial droop, speech deficit - Skin Skin exam: Present: dry, intact Internal Medicine: Result - Labs CBC & Chem 7: 08/19/17 04:20 08/19/17 04:20 - ABG Interpretation ABG results: PT/INR, D-dimer D-Dimer 5806 ng/mLFEU (0-500) H 08/12/17 10:28 Consult Discharge Plan - Plan Referrals: Pranav Harris DO [Primary Care Provider] -
[2017-08-20] MEDS: Budesonide/Formoterol 80/4.5 MDI IH SCH ×2 (11:33→20:36)
[2017-08-20] MEDS: Sennosides/Docusate Sodium TABLET PO SCH ×2 (12:07→21:41)
[2017-08-20] MEDS: ALPRAZolam 0.5 MG TABLET PO PRN (21:41)
[2017-08-21] MEDS: Acetylcysteine 10% 2 ML INHSOL IH SCH ×6 (03:31→23:47)
[2017-08-21] MEDS: Ipratropium/Albuterol Neb 3 ML IH SCH ×6 (03:31→23:47)
[2017-08-21] MEDS: Budesonide/Formoterol 80/4.5 MDI IH SCH ×2 (07:56→20:17)
[2017-08-21] MEDS: Lisinopril 20 MG TABLET PO SCH (08:40)
[2017-08-21] MEDS: amLODIPine 5 MG TABLET PO SCH (08:41)
[2017-08-21] MEDS: Cholecalciferol (D-3) 1,000 UNIT TABLET PO SCH (08:41)
[2017-08-21] MEDS: Famotidine 20 MG TABLET PO SCH (08:41)
[2017-08-21] MEDS: Isosorbide MONOnitrate (24 HR) 60 MG TAB.ER.24H PO SCH (08:41)
[2017-08-21] MEDS: MethylPREDNISolone 40 MG/ML VIAL IVP SCH ×2 (08:42→16:16)
[2017-08-21] MEDS: *HR* Heparin 5,000 UNIT/ML VIAL SQ SCH ×3 (08:42→23:51)
[2017-08-21] MEDS: Nicotine 21 MG PATCH.TD24 TD SCH (08:42)
[2017-08-21] MEDS: Bisacodyl 10 MG RECTAL SUPPOSITORY RC SCH (08:43)
[2017-08-21] MEDS: Sennosides/Docusate Sodium TABLET PO SCH ×2 (09:05→21:47)
--- NOTE | 2017-08-21 10:07 | Vascular/Endovas Progress Note ---
Date of Encounter: 08/21/17 Time of Encounter: 09:30 - Assessment and plan (1) ZIYAD (obstructive sleep apnea) Current Visit: Yes Status: Chronic Patient uses CPAP for controlling obstructive sleep apnea. (2) Acute respiratory failure with hypoxia Current Visit: Yes Status: Acute Patient is responding to medical therapy for COPD exacerbation. Pulmonary consultation is pending regarding possible bronchoscopy. (3) Aneurysm of infrarenal abdominal aorta Current Visit: Yes Status: Chronic Patient has an asymptomatic 5.5 cm abdominal aortic aneurysm with a bilobed appearance. The patient has a very small area of normal aorta at the level of the renals. I discussed with the patient and her family that endovascular treatment here at [place] may not be feasible due to her anatomy and that she may need a more advanced fenestrated graft in order to address her problem. However at this time the aneurysm is a secondary issue. Her pulmonary status is the most limiting and obviously she is no candidate for general anesthesia with her active pulmonary problems. I stressed this to the patient. Once the patient is discharged we will have the patient follow up again with Dr. Selby for further discussion of treatment options. All questions were answered. As above patient's pulmonary status remains a most limiting issue. Abdominal aortic aneurysm remains asymptomatic. Patient is instructed to follow up with Dr. Selby upon discharge and resolution of her pulmonary situation and she may then have further discussion about treatment options for the abdominal aortic aneurysm. - Subjective Interval history: I came back to see the patient today see if she had any questions in follow-up to my consultation from 2 days ago. At this time the patient is on a BiPAP mask. She is awake and alert. She expresses no abdominal symptoms related to the aneurysm. Vital Signs, Last 4 Hours Temp Pulse Resp BP Pulse Ox 08/21/17 07:09 97.8 F 62 16 144/70 98 - Physical Examination General: Present: Conversant, Other (Patient on BiPAP mask which inhibits conversation.) Results 08/19/17 04:20 08/19/17 04:20 Consult Discharge Plan - Plan Referrals: Pranav Harris DO [Primary Care Provider] -
[2017-08-21 11:16] LABS: Hematocrit 40.5 % (35.3-44.9); Hemoglobin 13.8 g/dL (11.5-15.4); Mean Corpuscular HGB Conc 34.1 g/dL (31.6-35.5); Mean Corpuscular Hemoglobin 31.4 pg (28.0-33.3); Mean Corpuscular Volume 92.3 fL (83.0-100.0); Mean Platelet Volume 9.3 fL (9.4-12.4); Platelet Count 264 K/mcL (140-400); Red Blood Count 4.39 M/mcL (3.82-4.97); Red Cell Distribution Width 13.8 % (11.5-14.5)
[2017-08-21 11:41] LABS: BUN/Creatinine Ratio 34 (6-26); Blood Urea Nitrogen 31 mg/dL (8-23); Calcium 10.6 mg/dL (8.6-10.3); Carbon Dioxide 27 mEq/L (23-29); Chloride 101 mEq/L (98-107); Glucose 167 mg/dL (70-105); Osmolality,Calculated 284 (280-300); Potassium 4.8 mEq/L (3.5-5.1); Sodium 132 mEq/L (136-145); eGFR For African Americans > 60 (> 60); eGFR For Non-African Americans 59 (> 60)
--- NOTE | 2017-08-21 11:43 | Internal Med Progress Note ---
Date of Encounter: 08/21/17 Time of Encounter: 11:43 - Assessment and plan (1) Acute respiratory failure with hypoxia Current Visit: Yes Status: Acute Assessment and plan: -Secondary to exacerbation of COPD-cough is improving decreased wheezing She was on Levaquin however this was stopped due to swelling Continue oxygen as needed maintain SPO2 greater than 92% Continue IV steroids Solu-Medrol 60 every 8 to taper Continue with azithromycin Pulmonary has been consulted appreciate their assistance-no bronchoscopy at this time per pulmonology We will continue with aggressive pulmonary toileting per pulmonary's recommendations. Continue with chest percussing Patient may require O2 as outpatient (2) Acute exacerbation of chronic obstructive airways disease Current Visit: Yes Status: Acute Assessment and plan: As above (3) Abdominal pain Current Visit: Yes Status: Acute Assessment and plan: Patient was given MOM enema yesterday and had a large bowel movement. Her symptoms have greatly improved. She only complains of some slight abdominal cramping/pain. Qualifiers: Abdominal location: right lower quadrant Qualified Code(s): R10.31 - Right lower quadrant pain (4) Abnormal CT scan Current Visit: Yes Status: Chronic Assessment and plan: Unchanged at this time -CT findings showed an enlarged heterogeneous thyroid gland Unsure if this is related to COPD exacerbation or thyroid dysfunction TSH normal at 0.466 Ultrasound shows multi-nodule goiter Possible FNA as outpatient (5) Aneurysm of infrarenal abdominal aorta Current Visit: Yes Status: Chronic Assessment and plan: Presently stable -vascular surgery has been consulted and appreciate their recommendations Known AAA has been increasing in size currently 5.5 cm Advise per vascular note "treatment here at [facility] may not be feasible due to her anatomy and that she may need a more advanced fenestrated graft in order to address her problem. However at this time the aneurysm is a secondary issue. Her pulmonary status is the most limiting and obviously she is no candidate for general anesthesia with her active pulmonary problems. " (6) CAD (coronary artery disease) Current Visit: Yes Status: Chronic Assessment and plan: No chest pain at this time History of CAD witnessed dents continue with aspirin and Plavix and statin nitroglycerin as needed for chest pain Qualifiers: Coronary Disease-Associated Artery/Lesion type: [place] artery [place] vs. transplanted heart: [place] heart Associated angina: without angina Qualified Code(s): I25.10 - Atherosclerotic heart disease of [place] coronary artery without angina pectoris (7) GERD (gastroesophageal reflux disease) Current Visit: Yes Status: Chronic Assessment and plan: Continue with home medications-stable Qualifiers: Esophagitis presence: esophagitis presence not specified Qualified Code(s) : K21.9 - Gastro-esophageal reflux disease without esophagitis (8) HLD (hyperlipidemia) Current Visit: Yes Status: Acute Assessment and plan: Continue with statin Qualifiers: Hyperlipidemia type: mixed hyperlipidemia Qualified Code(s): E78.2 - Mixed hyperlipidemia (9) HTN (hypertension) Current Visit: Yes Status: Chronic Assessment and plan: Presently stable and unchanged continue with home medications Qualifiers: Hypertension type: essential hypertension Qualified Code(s): I10 - Essential (primary) hypertension (10) ZIYAD (obstructive sleep apnea) Current Visit: Yes Status: Chronic Assessment and plan: Continuous CPAP at night (11) Tobacco abuse Current Visit: Yes Status: Chronic Assessment and plan: Patient stopped smoking 3 months ago continue abstinence from smoking (12) Acute kidney injury Current Visit: Yes Status: Resolved Assessment and plan: On admission creatinine was 1.3 -she is return to baseline this is resolved Continue to monitor Avoid nephrotoxins (13) DVT prophylaxis Current Visit: Yes Status: Acute Assessment and plan: Heparin subcutaneous (14) Diastolic dysfunction Current Visit: Yes Status: Acute Assessment and plan: We will continue to monitor intake and output and daily weights Echo EF of 60-65% Normal LV chamber size and function. Mild left ventricular diastolic dysfunction. Mild concentric left ventricular hypertrophy. Normal right ventricular structure and function. Mild pulmonary hypertension. No significant valvular dysfunction. There is a very small anteriorl pericardial effusion present. No hemodynamic significance. - Subjective Interval history: Patient states she feels much better since having bowel movement yesterday. Abdominal pain has improved she does have some slight cramping and tenderness and is passing gas. She is tolerating her meals. She denies any shortness of breath or cough at this time. I did encourage patient to get up in chair. - Constitutional Vitals: Temp Pulse Resp BP Pulse Ox 98.0 F 58 16 135/78 99 08/21/17 11:08 08/21/17 11:08 08/21/17 11:08 08/21/17 11:08 08/21/17 11:08 General appearance: Present: A&O X 3, answers questions appropriately - Head Head exam: Present: atraumatic, normocephalic - Eye Eye exam: Present: PERRL, conjuntiva pink, sclera anicteric Pupils: Present: PERRL - Neck Neck exam general surgery: Present: supple, trachea midline. Absent: lymphadenopathy - Respiratory Respiratory exam: Present: wheezes. Absent: accessory muscle use, rales, rhonchi - Cardiovascular Cardiovascular exam: Present: RRR, +S1, +S2. Absent: diastolic murmur, gallop, rubs, systolic murmur - GI/Abdominal GI/Abdominal exam: Present: normal bowel sounds, soft, no peritoneal signs. Absent: distended, tenderness - Extremities Exam Extremities exam: Present: warm, radial pulses palpable and symmetrical. Absent : calf tenderness, cyanotic, pedal edema - Neurological Exam Neurological exam: Present: CN II-XII intact, oriented X3, no focal deficits. Absent: pronater drift, facial droop, speech deficit - Skin Skin exam: Present: dry, intact Internal Medicine: Result - Labs CBC & Chem 7: 08/21/17 10:37 08/21/17 10:37 Labs: Short CBC 08/21/17 Range/Units 10:37 WBC 15.4 H (4.3-11.1) K/mcL Hgb 13.8 (11.5-15.4) g/dL Hct 40.5 (35.3-44.9) % Plt Count 264 (140-400) K/mcL [facility] 08/21/17 10:37 Sodium 132 L Potassium 4.8 Chloride 101 Carbon Dioxide 27 BUN 31 H Creatinine 0.91 Glucose 167 H Calcium 10.6 H - ABG Interpretation ABG results: PT/INR, D-dimer D-Dimer 5806 ng/mLFEU (0-500) H 08/12/17 10:28 - Impressions Impressions KUB X-Ray 08/20/17 10:04 IMPRESSION: Nonspecific bowel gas pattern without definite findings for obstruction or evidence for intraperitoneal free air. Gaseous distention of stomach, nonspecific. D/ / 08/20/2017 13:32:05 Dorian Cancino MD / thien Interpreting Provider: Dorian Cancino MD Consult Discharge Plan - Plan Referrals: Pranav Harris DO [Primary Care Provider] -
[2017-08-21 11:45] LABS: Lymphocytes # 1.2 K/mcL (0.6-4.6); Monocytes # 1.2 K/mcL (0.0-1.3); Neutrophils # 12.9 K/mcL (1.6-8.9)
[2017-08-21 11:46] LABS: Platelet Estimate Normal (Normal)
--- NOTE | 2017-08-21 19:22 | Event Note ---
Date of Encounter: 08/21/17 Time of Encounter: 19:21 Notified per nursing staff patient experiencing itching after receiving Solu- Medrol. No difficulty in breathing. We will give Benadryl and discontinue Solu -Medrol place patient on prednisone
[2017-08-21] MEDS: ALPRAZolam 0.5 MG TABLET PO PRN (21:46)
[2017-08-21] MEDS: *HR* HYDROcodone/Acet 5/325 mg TABLET PO PRN (22:27)
[2017-08-21] MEDS: Ondansetron 4 MG/2 ML VIAL IVP SCH (23:51)
[2017-08-22] MEDS ORDERED: Lactulose Oral Soln 20 GM/30 ML UDC PO ONE (01:14)
[2017-08-22] MEDS: Acetylcysteine 10% 2 ML INHSOL IH SCH ×5 (03:40→19:55)
[2017-08-22] MEDS: Ipratropium/Albuterol Neb 3 ML IH SCH ×5 (03:40→19:55)
[2017-08-22] MEDS: Ondansetron 4 MG/2 ML VIAL IVP SCH ×6 (04:08→23:37)
[2017-08-22 05:37] LABS: Basophils # 0.1 K/mcL (0.0-0.2); Basophils % 0.4 %; Eosinophils % 0.1 %; Hematocrit 38.7 % (35.3-44.9); Hemoglobin 13.1 g/dL (11.5-15.4); Immature Granulocytes % 6.3 % (0-4); Lymphocytes # 1.3 K/mcL (0.6-4.6); Lymphocytes % 7.7 %; Mean Corpuscular HGB Conc 33.9 g/dL (31.6-35.5); Mean Corpuscular Hemoglobin 30.9 pg (28.0-33.3); Mean Corpuscular Volume 91.3 fL (83.0-100.0); Mean Platelet Volume 9.5 fL (9.4-12.4); Monocytes % 7.8 %; Neutrophils # 13.4 K/mcL (1.6-8.9); Platelet Count 264 K/mcL (140-400); Red Blood Count 4.24 M/mcL (3.82-4.97); Red Cell Distribution Width 13.8 % (11.5-14.5); Segmented Neutrophils % 77.7 %
[2017-08-22 05:46] LABS: Monocytes # 1.3 K/mcL (0.0-1.3)
[2017-08-22 06:20] LABS: Platelet Estimate Normal (Normal)
[2017-08-22 06:42] LABS: BUN/Creatinine Ratio 37 (6-26); Blood Urea Nitrogen 37 mg/dL (8-23); Calcium 10.8 mg/dL (8.6-10.3); Carbon Dioxide 29 mEq/L (23-29); Chloride 101 mEq/L (98-107); Glucose 93 mg/dL (70-105); Osmolality,Calculated 286 (280-300); Potassium 5.5 mEq/L (3.5-5.1); Sodium 134 mEq/L (136-145); eGFR For African Americans > 60 (> 60); eGFR For Non-African Americans 54 (> 60)
[2017-08-22] MEDS: Budesonide/Formoterol 80/4.5 MDI IH SCH ×2 (07:33→19:55)
[2017-08-22] MEDS: *HR* HYDROcodone/Acet 5/325 mg TABLET PO PRN (08:48)
[2017-08-22] MEDS: *HR* Heparin 5,000 UNIT/ML VIAL SQ SCH (08:53)
[2017-08-22] MEDS: Lisinopril 20 MG TABLET PO SCH (08:54)
[2017-08-22] MEDS: Sennosides/Docusate Sodium TABLET PO SCH ×2 (08:54→21:43)
[2017-08-22] MEDS: Famotidine 20 MG TABLET PO SCH (08:54)
[2017-08-22] MEDS: amLODIPine 5 MG TABLET PO SCH (08:55)
[2017-08-22] MEDS: Cholecalciferol (D-3) 1,000 UNIT TABLET PO SCH (08:55)
[2017-08-22] MEDS: Isosorbide MONOnitrate (24 HR) 60 MG TAB.ER.24H PO SCH (08:55)
[2017-08-22] MEDS: Nicotine 21 MG PATCH.TD24 TD SCH (08:55)
--- NOTE | 2017-08-22 10:01 | Internal Med Progress Note ---
<Nicolasa Bird - Last Filed: 08/22/17 10:10> Date of Encounter: 08/22/17 Time of Encounter: 09:00 - Assessment and plan (1) Acute respiratory failure with hypoxia Current Visit: Yes Status: Acute Assessment and plan: -Secondary to exacerbation of COPD-no wheezing at this time-cough improved no sputum production She was on Levaquin however this was stopped due to swelling Continue oxygen as needed maintain SPO2 greater than 92% Continue IV steroids Solu-Medrol 60 every 8 to taper Continue with azithromycin Pulmonary has been consulted appreciate their assistance-no bronchoscopy at this time per pulmonology We will continue with aggressive pulmonary toileting per pulmonary's recommendations. Continue with chest percussing Patient may require O2 as outpatient Encourage patient to ambulate (2) Acute exacerbation of chronic obstructive airways disease Current Visit: Yes Status: Acute Assessment and plan: As above (3) Abdominal pain Current Visit: Yes Status: Acute Assessment and plan: Patient has been experiencing abdominal pain since the . She did have a CT of abdomen which did reveal moderate amount of stool in the cecum and proximal: Stable diverticulosis and increased size of AAA to 5.5 as well as a left pleural effusion in the lower lobe. Vascular was consulted for AAA with no surgical intervention at this time-see vascular note. Patient continued to have abdominal pain she was given multiple rounds of laxatives as well as enemas with no improvement. I did speak with surgery who did recommend continued laxative. She did a large bowel movement on Friday and her abdominal pain had improved. However overnight her pain increased. She also has a slight elevation in her white count. We will obtain abdomen CT as well as a urinalysis Qualifiers: Abdominal location: right lower quadrant Qualified Code(s): R10.31 - Right lower quadrant pain (4) Abnormal CT scan Current Visit: Yes Status: Chronic Assessment and plan: Unchanged at this time -CT findings showed an enlarged heterogeneous thyroid gland Unsure if this is related to COPD exacerbation or thyroid dysfunction TSH normal at 0.466 Ultrasound shows multi-nodule goiter Possible FNA as outpatient (5) Aneurysm of infrarenal abdominal aorta Current Visit: Yes Status: Chronic Assessment and plan: -vascular surgery has been consulted and appreciate their recommendations - patient is experiencing some abdominal pain do not suspect this is related to her aneurysm she has a steady H&H as well as no change in vital signs, or decrease in skin perfusion Known AAA has been increasing in size currently 5.5 cm Advise per vascular note "treatment here at [facility] may not be feasible due to her anatomy and that she may need a more advanced fenestrated graft in order to address her problem. However at this time the aneurysm is a secondary issue. Her pulmonary status is the most limiting and obviously she is no candidate for general anesthesia with her active pulmonary problems. " (6) CAD (coronary artery disease) Current Visit: Yes Status: Chronic Assessment and plan: No chest pain at this time History of CAD witnessed dents continue with aspirin and Plavix and statin nitroglycerin as needed for chest pain Qualifiers: Coronary Disease-Associated Artery/Lesion type: [place] artery [place] vs. transplanted heart: [place] heart Associated angina: without angina Qualified Code(s): I25.10 - Atherosclerotic heart disease of [place] coronary artery without angina pectoris (7) GERD (gastroesophageal reflux disease) Current Visit: Yes Status: Chronic Assessment and plan: Continue with home medications-stable Qualifiers: Esophagitis presence: esophagitis presence not specified Qualified Code(s) : K21.9 - Gastro-esophageal reflux disease without esophagitis (8) HLD (hyperlipidemia) Current Visit: Yes Status: Acute Assessment and plan: Continue with statin Qualifiers: Hyperlipidemia type: mixed hyperlipidemia Qualified Code(s): E78.2 - Mixed hyperlipidemia (9) HTN (hypertension) Current Visit: Yes Status: Chronic Assessment and plan: Presently stable and unchanged continue with home medications Qualifiers: Hypertension type: essential hypertension Qualified Code(s): I10 - Essential (primary) hypertension (10) ZIYAD (obstructive sleep apnea) Current Visit: Yes Status: Chronic Assessment and plan: Continuous CPAP at night (11) Tobacco abuse Current Visit: Yes Status: Chronic Assessment and plan: Patient stopped smoking 3 months ago continue abstinence from smoking (12) Acute kidney injury Current Visit: Yes Status: Resolved (13) DVT prophylaxis Current Visit: Yes Status: Acute Assessment and plan: Heparin subcutaneous (14) Diastolic dysfunction Current Visit: Yes Status: Acute Assessment and plan: Stable at this time patient does not appear to be fluid overloaded -We will continue to monitor intake and output and daily weights Echo EF of 60-65% Normal LV chamber size and function. Mild left ventricular diastolic dysfunction. Mild concentric left ventricular hypertrophy. Normal right ventricular structure and function. Mild pulmonary hypertension. No significant valvular dysfunction. There is a very small anteriorl pericardial effusion present. No hemodynamic significance. (15) Leukocytosis Current Visit: Yes Status: Acute Assessment and plan: Patient has had a steady increase and white count over the past 3 days. There is no fevers no tachycardia. Presently on antibiotics-azithromycin. We will obtain a CT of chest as well as obtain a urinalysis Qualifiers: Leukocytosis type: unspecified Qualified Code(s): D72.829 - Elevated white blood cell count, unspecified - Subjective Interval history: Patient has been experiencing nausea, and right lower quadrant pain. She did have an episode of vomiting last night after receiving pain medication. Abdomen is soft nondistended, tenderness to right quadrant mostly lower. Respiratory rodriguez she feels she has improved cough has decreased no wheezing. I did review this case with Dr. Zuniga, he will resume care. We will order CT of abdomen and chest and obtain urinalysis. I did update the family and patient concerning treatment plan and that Dr. Zuniga to resume care. They verbalized understanding - Constitutional Vitals: Temp Pulse Resp BP Pulse Ox 97.7 F 57 16 150/78 99 08/22/17 06:47 08/22/17 06:47 08/22/17 06:47 08/22/17 06:47 08/22/17 06:47 General appearance: Present: A&O X 3, answers questions appropriately - Head Head exam: Present: atraumatic, normocephalic - Eye Eye exam: Present: PERRL, conjuntiva pink, sclera anicteric Pupils: Present: PERRL - Neck Neck exam general surgery: Present: supple, trachea midline. Absent: lymphadenopathy - Respiratory Respiratory exam: Present: CTAB. Absent: accessory muscle use, rales, rhonchi, wheezes - Cardiovascular Cardiovascular exam: Present: RRR, +S1, +S2. Absent: diastolic murmur, gallop, rubs, systolic murmur - GI/Abdominal GI/Abdominal exam: Present: normal bowel sounds, soft, tenderness, no peritoneal signs. Absent: distended - Extremities Exam Extremities exam: Present: warm, radial pulses palpable and symmetrical. Absent : calf tenderness, cyanotic, pedal edema - Neurological Exam Neurological exam: Present: CN II-XII intact, oriented X3, no focal deficits. Absent: pronater drift, facial droop, speech deficit - Skin Skin exam: Present: dry, intact Internal Medicine: Result - Labs CBC & Chem 7: 08/22/17 04:02 08/22/17 04:02 Labs: Short CBC 08/21/17 08/22/17 Range/Units 10:37 04:02 WBC 15.4 H 17.2 H (4.3-11.1) K/mcL Hgb 13.8 13.1 (11.5-15.4) g/dL Hct 40.5 38.7 (35.3-44.9) % Plt Count 264 264 (140-400) K/mcL Neutrophils # 12.9 H 13.4 H (1.6-8.9) K/mcL BMP 08/21/17 08/22/17 10:37 04:02 Sodium 132 L 134 L Potassium 4.8 5.5 H Chloride 101 101 Carbon Dioxide 27 29 BUN 31 H 37 H Creatinine 0.91 0.99 Glucose 167 H 93 Calcium 10.6 H 10.8 H - ABG Interpretation ABG results: PT/INR, D-dimer D-Dimer 5806 ng/mLFEU (0-500) H 08/12/17 10:28 Consult Discharge Plan - Plan Referrals: Pranav Harris DO [Primary Care Provider] - <Marlon Zuniga - Last Filed: 08/22/17 18:52> Date of Encounter: 08/22/17 - Constitutional Vitals: Temp Pulse Resp BP Pulse Ox 98.4 F 49 18 98/63 94 08/22/17 16:59 08/22/17 16:59 08/22/17 16:59 08/22/17 16:59 08/22/17 16:59 Internal Medicine: Result - Labs CBC & Chem 7: 08/22/17 15:34 08/22/17 15:34 Labs: Short CBC 08/22/17 08/22/17 Range/Units 04:02 15:34 WBC 17.2 H 23.9 H (4.3-11.1) K/mcL Hgb 13.1 11.2 L D (11.5-15.4) g/dL Hct 38.7 33.8 L (35.3-44.9) % Plt Count 264 275 (140-400) K/mcL Neutrophils # 13.4 H 17.7 H (1.6-8.9) K/mcL BMP 08/22/17 08/22/17 04:02 15:34 Sodium 134 L 130 L Potassium 5.5 H 5.5 H Chloride 101 102 Carbon Dioxide 29 25 BUN 37 H 38 H Creatinine 0.99 1.11 Glucose 93 128 H Calcium 10.8 H 10.1 Cardiac Enzymes 08/22/17 Range/Units 15:34 Troponin I < 0.03 (< 0.04) ng/mL Urine 08/22/17 Range/Units 16:20 Urine Color Yellow (Yellow) Urine Clarity Clear (Clear) Urine pH 7.0 (5.0-8.0) pH Units Ur Specific [place] 1.023 (1.010-1.025) Urine Protein Trace (Neg-Trace) mg/dL Urine Glucose (UA) Normal (Normal) mg/dL - ABG Interpretation ABG results: PT/INR, D-dimer D-Dimer 5806 ng/mLFEU (0-500) H 08/12/17 10:28 - Impressions Impressions Abdomen/Pelvis CT 08/22/17 09:34 IMPRESSION: 1. New extraperitoneal bleed extending in the pelvis presumably spontaneous from the deep margin of the inferior aspect of the right rectus abdominus muscle. 2. Unchanged 4.6 x 5.3 cm infrarenal abdominal aorta aneurysm. Management recommendation is for vascular consultation as well as follow-up imaging every 6 months if intervention is not performed*. 3. Calcific atherosclerotic disease aorta. 4. Hiatal hernia. 5. Unchanged left basilar consolidation and left pleural effusion. This may be related to pneumonia. Underlying mass cannot be excluded. Critical results were called by Dr. Colton Jacobs to Nicolasa Bird on 08/22/2017 at 11:53. ____ *Managing Abdominal Aortic Aneurysms 2.6-2.9 cm: Every 5 years* 3.0-3.4 cm: Every 3 years. 3.5-3.9 cm: Every 1 year. 4.0-4.4 cm: Every 1 year. Recommend vascular consultation. 4.5-5.4 cm: Every 6 months. Recommend vascular consultation. Greater than or equal to 5.5 cm: Referral to vascular surgeon. *For abdominal aortas with maximum diameter of 2.6-2.9 cm meeting criteria for AAA (>50% of proximal normal segment). Reference: J Vasc Surg. 2008;50(4 Suppl):S2-49 D/ / Colton Jacobs / Colton Jacobs Interpreting Provider: Colton Jacobs Chest CT 08/22/17 09:34 IMPRESSION: Small left pleural effusion, new from prior CT exam 08/12/2017. There may also be a trace right pleural effusion which is new. Complete collapse of the left lower lobe, new from prior CT exam. No air bronchograms identified. Suspect that the collapse may relate to underlying mucous plugging of the segmental/subsegmental bronchi to the left lower lobe. Patient may benefit from bronchoscopy. There also appears to be some mucus plugging to segmental/subsegmental bronchi to right lower lobe without associated lung parenchymal abnormality. Small pericardial effusion, similar from prior CT exam. Atherosclerosis to include coronary artery disease. Mild emphysema. Stable small hiatal hernia. D/ / 08/22/2017 11:45:30 Dorian Cancino MD / thien Interpreting Provider: Dorian Cancino MD - Attending Attestation I performed a [id number] diagnostic evaluation of this patient and my medical decision-making was reviewed with the nurse practitioner. I agree with the documented findings, disposition and treatment plan as described except to the extent set forth below. Patient reports severe lower abdominal pain. Physical exam: Gen: Moderate distress due to abdominal pain, AAOx3 Heart: RRR, S1S2, no murmurs Lungs: CTABL Abdomen: S, tender to palpation in the lower abdomen with significant voluntary guarding, no peritoneal signs, + bowel sounds CT of the abdomen and pelvis today was personally reviewed shows an extra peritoneal hematoma within the right rectus sheath. This corresponds with the patient's location of the pain. Assessment: Acute spontaneous extraperitoneal rectus sheath hematoma. Plan: Check H&H every 6 hours, transfuse if hemoglobin below 8 or the patient becomes hemodynamically unstable. Check CT with contrast to see if there is any active bleed into the hematoma. Pain control. Stop heparin subcutaneous. Stop all anticoagulants and antiplatelets. Marlon Zuniga MD
--- NOTE | 2017-08-22 10:32 | Internal Med Progress Note ---
<Jeremy Mckinley - Last Filed: 08/22/17 10:44> Date of Encounter: 08/22/17 Time of Encounter: 10:00 - Assessment and plan (1) Abdominal pain Current Visit: Yes Status: Acute Assessment and plan: CT abd/pelv performed on 08/14 showed fecal matter in the cecum She had extensive laxatives and enemas and has been successful, having had many bowel movements in the last few days She felt better originally, but did have return of significant, sharp abdominal pain Starting last night she had nausea with vomiting There is exquisite tenderness to palpation in the right side of her abdomen as well as pain with heel tap Will obtain a CT of her chest, abdomen, and pelvis Consider NG if worsening nausea Try to avoid narcotic pain medications if possible Continue current laxatives Qualifiers: Abdominal location: right lower quadrant Qualified Code(s): R10.31 - Right lower quadrant pain (2) Acute respiratory failure with hypoxia Current Visit: Yes Status: Resolved Assessment and plan: Due to acute exacerbation of COPD - now resolved Patient reports resolution of respiratory symptoms Chest x-ray negative for acute findings Patient uses CPAP (without oxygen) at night for ZIYAD Continue supplemental oxygen as needed, wean as tolerated Patient started on prednisone due to development of itching with solu-medrol does state that benadryl prior to steroid administration alleviates this Continue breathing treatments of albuterol and ipratropium Antibiotics stopped Will continue guaifenesin Patient will likely benefit from education on proper use of her inhalers (3) Acute exacerbation of chronic obstructive airways disease Current Visit: Yes Status: Resolved Assessment and plan: Plan the above (4) Aneurysm of infrarenal abdominal aorta Current Visit: Yes Status: Acute Assessment and plan: Known AAA Has been increasing in size, currently 5.5cm Patient who feel repair of her aorta would not be feasible at [place] and feel that the pulmonary issue/abdominal issue takes priority. Recommend following up with Dr. Ferreira upon discharge for discussion of treatment options. (5) Abnormal CT scan Current Visit: Yes Status: Acute Assessment and plan: CT findings showed an enlarged heterogeneous thyroid gland Patient has acute exacerbation COPD, so unsure if symptoms related to thyroid dysfunction TSH normal at .466 Thyroid US shows multinodular goiter Recommend possible FNA as outpatient (6) Acute kidney injury Current Visit: Yes Status: Resolved Assessment and plan: Resolved Patient has baseline creatinine 0.8 which was elevated at 1.32 at admission This was likely due to dehydration After receiving IV fluids patient's serum creatinine improved We will continue to monitor renal function with daily labs Avoid potentially nephrotoxic agents (7) CAD (coronary artery disease) Current Visit: Yes Status: Chronic Assessment and plan: History of coronary artery disease S/P stents Patient did report feeling of "elephant on her chest" this morning EKG was obtained that did not show any changes from previous ECG Patient does take Imdur at home normally Continue aspirin, statin, and Plavix Consider obtaining troponin if additional chest discomfort Qualifiers: Coronary Disease-Associated Artery/Lesion type: [place] artery [place] vs. transplanted heart: [place] heart Associated angina: without angina Qualified Code(s): I25.10 - Atherosclerotic heart disease of [place] coronary artery without angina pectoris (8) ZIYAD (obstructive sleep apnea) Current Visit: Yes Status: Chronic Assessment and plan: Patient has history of obstructive sleep apnea and uses CPAP at night Continue CPAP with supplemental oxygen if needed (9) GERD (gastroesophageal reflux disease) Current Visit: Yes Status: Chronic Assessment and plan: Stable continue home medication Qualifiers: Esophagitis presence: esophagitis presence not specified Qualified Code(s) : K21.9 - Gastro-esophageal reflux disease without esophagitis (10) HLD (hyperlipidemia) Current Visit: Yes Status: Acute Assessment and plan: Stable, continue home medication Qualifiers: Hyperlipidemia type: mixed hyperlipidemia Qualified Code(s): E78.2 - Mixed hyperlipidemia (11) HTN (hypertension) Current Visit: Yes Status: Chronic Assessment and plan: Blood pressure slightly elevated in the 140s over 80s Lisinopril stopped last night due to concern of tongue swelling, likely patient just had dry mouth Blood pressure has remained stable Consider different medication for blood pressure if needed Continue to monitor Qualifiers: Hypertension type: essential hypertension Qualified Code(s): I10 - Essential (primary) hypertension (12) Tobacco abuse Current Visit: Yes Status: Chronic Assessment and plan: Patient reports having quit smoking 2 months ago Continues to use nicotine patch persistence of smoking cessation Patient states that she normally uses the nicotine patch during the day only Consider removing patch at night, per patient comfort Continue nicotine patch - Subjective Interval history: Patient reports breathing well overall with improvement in her cough. She reports that she has been having subjective fevers in the last day. She also reports having significant quantity of bowel movements. She states her stool is soft but not watery. She can't say whether she is having blood in her stool. She reports having the feeling on an elephant on her chest and significant sharp lower right abdominal pain. She also reports that starting last night, she began to have nausea. - Constitutional Vitals: Temp Pulse Resp BP Pulse Ox 97.7 F 57 16 150/78 99 08/22/17 06:47 08/22/17 06:47 08/22/17 06:47 08/22/17 06:47 08/22/17 06:47 General appearance: Present: A&O X 3, answers questions appropriately Exam: General: Cooperative, pleasant, mild distress, alert and oriented 3, answers questions appropriately, patient had just had bowel movement and no blood or tarry stool was seen HEENT: Normocephalic, atraumatic, Conjunctiva pink, sclera anicteric Respiratory: No accessory muscle usage, clear to auscultation b/l Cardiovascular: Regular rate and rhythm, S1 and S2 present, no murmurs/rubs/ gallops/clicks appreciated GI/abdominal: Nondistended, exquisite tenderness in right lower quadrant, soft, normal bowel sounds, rebound negative, tenderness elicited with heel tap Extremities: No calf tenderness, noncyanotic, no pedal edema appreciated, warm, lower extremity pulses palpable and symmetrical Neurological: Alert and oriented 3, no facial droop, no focal deficits Skin: Moist, warm, intact, normal color Internal Medicine: Result - Labs CBC & Chem 7: 08/22/17 04:02 08/22/17 04:02 Labs: Short CBC 08/21/17 08/22/17 Range/Units 10:37 04:02 WBC 15.4 H 17.2 H (4.3-11.1) K/mcL Hgb 13.8 13.1 (11.5-15.4) g/dL Hct 40.5 38.7 (35.3-44.9) % Plt Count 264 264 (140-400) K/mcL Neutrophils # 12.9 H 13.4 H (1.6-8.9) K/mcL BMP 08/21/17 08/22/17 10:37 04:02 Sodium 132 L 134 L Potassium 4.8 5.5 H Chloride 101 101 Carbon Dioxide 27 29 BUN 31 H 37 H Creatinine 0.91 0.99 Glucose 167 H 93 Calcium 10.6 H 10.8 H - ABG Interpretation ABG results: PT/INR, D-dimer D-Dimer 5806 ng/mLFEU (0-500) H 08/12/17 10:28 Consult Discharge Plan - Plan Referrals: Pranav Harris DO [Primary Care Provider] - <NadiaBobMarlon - Last Filed: 08/22/17 19:25> Date of Encounter: 08/22/17 - Constitutional Vitals: Temp Pulse Resp BP Pulse Ox 97.7 F 57 17 92/56 98 08/22/17 19:08 08/22/17 19:08 08/22/17 19:08 08/22/17 19:08 08/22/17 19:08 Internal Medicine: Result - Labs CBC & Chem 7: 08/22/17 15:34 08/22/17 15:34 Labs: Short CBC 08/22/17 08/22/17 Range/Units 04:02 15:34 WBC 17.2 H 23.9 H (4.3-11.1) K/mcL Hgb 13.1 11.2 L D (11.5-15.4) g/dL Hct 38.7 33.8 L (35.3-44.9) % Plt Count 264 275 (140-400) K/mcL Neutrophils # 13.4 H 17.7 H (1.6-8.9) K/mcL BMP 08/22/17 08/22/17 04:02 15:34 Sodium 134 L 130 L Potassium 5.5 H 5.5 H Chloride 101 102 Carbon Dioxide 29 25 BUN 37 H 38 H Creatinine 0.99 1.11 Glucose 93 128 H Calcium 10.8 H 10.1 Cardiac Enzymes 08/22/17 Range/Units 15:34 Troponin I < 0.03 (< 0.04) ng/mL Urine 08/22/17 Range/Units 16:20 Urine Color Yellow (Yellow) Urine Clarity Clear (Clear) Urine pH 7.0 (5.0-8.0) pH Units Ur Specific [place] 1.023 (1.010-1.025) Urine Protein Trace (Neg-Trace) mg/dL Urine Glucose (UA) Normal (Normal) mg/dL - ABG Interpretation ABG results: PT/INR, D-dimer D-Dimer 5806 ng/mLFEU (0-500) H 08/12/17 10:28 - Impressions Impressions Abdomen/Pelvis CT 08/22/17 09:34 IMPRESSION: 1. New extraperitoneal bleed extending in the pelvis presumably spontaneous from the deep margin of the inferior aspect of the right rectus abdominus muscle. 2. Unchanged 4.6 x 5.3 cm infrarenal abdominal aorta aneurysm. Management recommendation is for vascular consultation as well as follow-up imaging every 6 months if intervention is not performed*. 3. Calcific atherosclerotic disease aorta. 4. Hiatal hernia. 5. Unchanged left basilar consolidation and left pleural effusion. This may be related to pneumonia. Underlying mass cannot be excluded. Critical results were called by Dr. Colton Jacobs to Nicolasa Bird on 08/22/2017 at 11:53. ____ *Managing Abdominal Aortic Aneurysms 2.6-2.9 cm: Every 5 years* 3.0-3.4 cm: Every 3 years. 3.5-3.9 cm: Every 1 year. 4.0-4.4 cm: Every 1 year. Recommend vascular consultation. 4.5-5.4 cm: Every 6 months. Recommend vascular consultation. Greater than or equal to 5.5 cm: Referral to vascular surgeon. *For abdominal aortas with maximum diameter of 2.6-2.9 cm meeting criteria for AAA (>50% of proximal normal segment). Reference: J Vasc Surg. 2009 Feb;50(4 Suppl):S2-49 D/ / Colton Jacobs / Colton Jacobs Interpreting Provider: Colton Jacobs Chest CT 08/22/17 09:34 IMPRESSION: Small left pleural effusion, new from prior CT exam 08/12/2017. There may also be a trace right pleural effusion which is new. Complete collapse of the left lower lobe, new from prior CT exam. No air bronchograms identified. Suspect that the collapse may relate to underlying mucous plugging of the segmental/subsegmental bronchi to the left lower lobe. Patient may benefit from bronchoscopy. There also appears to be some mucus plugging to segmental/subsegmental bronchi to right lower lobe without associated lung parenchymal abnormality. Small pericardial effusion, similar from prior CT exam. Atherosclerosis to include coronary artery disease. Mild emphysema. Stable small hiatal hernia. D/ / 08/22/2017 11:45:30 Dorian Cancino MD / [facility] Interpreting Provider: Dorian Cancino MD Abdomen/Pelvis CTA 08/22/17 15:46 IMPRESSION: 1. Moderate increase in size of a large extraperitoneal hematoma in the pelvis, now measuring 13.8 x 10.9 cm, previously 10 x 7 cm when measured at a similar level. The hematoma is heterogeneous in appearance, which can be seen with ongoing bleeding. However, no active arterial extravasation is seen on this exam. 2. Stable small left pleural effusion with left lower lobe atelectasis and/or pneumonia. 3. Stable appearance of a multilobed infrarenal abdominal aortic aneurysm, measuring up to 5.0 x 4.7 cm on this exam. 4. Severe diffuse atherosclerosis. The proximal right superficial femoral artery appears to be occluded. RECOMMENDATIONS: Managing Abdominal Aortic Aneurysms 2.6-2.9 cm: Every 5 years* 3.0-3.4 cm: Every 3 years. 3.5-3.9 cm: Every 1 year. 4.0-4.4 cm: Every 1 year. Recommend vascular consultation. 4.5-5.4 cm: Every 6 months. Recommend vascular consultation. Greater than or equal to 5.5 cm: Referral to vascular surgeon. *For abdominal aortas with maximum diameter of 2.6-2.9 cm meeting criteria for AAA (>50% of proximal normal segment). Reference: J Vasc Surg. 2008;50(4 Suppl):S2-49 D/ / 08/22/2017 18:57:08 Abdullahi Braga MD / [facility] Interpreting Provider: Abdullahi Braga MD - Attending Attestation I performed a [id number]-[id number] diagnostic evaluation of this patient and my medical decision-making was reviewed with the Resident Physician, Dr Noman Mckinley. I agree with the documented findings, disposition and treatment plan as described except to the extent set forth below. Physical exam: Gen: Moderate distress due to pain, AAOx3 Heart: RRR, S1S2, no murmurs Lungs: CTABL Abdomen: S, tender to palpation with voluntary guarding, no peritoneal signs. Plan: During rapid response: Stat labs. This had ABG. EKG. Troponin. Check CT abdomen and pelvis stat. Following rapid response: CT abdomen and pelvis shows retroperitoneal right rectus sheath hematoma. Plan: Close hemodynamic monitoring. Transferred to stepdown. Frequent H&H. Transfuse if unstable or significant drop. Pain control. Marlon Zuniga MD
[2017-08-22] MEDS: predniSONE 20 MG TABLET PO SCH ×2 (11:14→17:12)
[2017-08-22] MEDS ORDERED: Acetaminophen IV 1,000 MG/100 ML INFUS..BTL IVPB ONE (15:43)
[2017-08-22 16:41] LABS: Basophils # 0.1 K/mcL (0.0-0.2); Basophils % 0.4 %; Eosinophils # 0.1 K/mcL (0.0-0.6); Eosinophils % 0.2 %; Hematocrit 33.8 % (35.3-44.9); Hemoglobin 11.2 g/dL (11.5-15.4); Immature Granulocytes % 5.8 % (0-4); Lymphocytes # 2.9 K/mcL (0.6-4.6); Lymphocytes % 12.2 %; Mean Corpuscular HGB Conc 33.1 g/dL (31.6-35.5); Mean Corpuscular Hemoglobin 31.2 pg (28.0-33.3); Mean Corpuscular Volume 94.2 fL (83.0-100.0); Mean Platelet Volume 9.5 fL (9.4-12.4); Monocytes # 1.7 K/mcL (0.0-1.3); Monocytes % 7.3 %; Neutrophils # 17.7 K/mcL (1.6-8.9); Nucleated Red Blood Cells 0.1 /100 WBC (0); Platelet Count 275 K/mcL (140-400); Red Blood Count 3.59 M/mcL (3.82-4.97); Red Cell Distribution Width 13.9 % (11.5-14.5); Segmented Neutrophils % 74.1 %
[2017-08-22 16:42] LABS: Bilirubin,Urine Negative (Negative); Blood,Urine Negative (Negative); Clarity,Urine Clear (Clear); Color,Urine Yellow (Yellow); Glucose,Urine (UA) Normal (Normal); Ketones,Urine Negative (Negative); Leukocyte Esterase,Urine Negative (Negative); Nitrite,Urine Negative (Negative); Protein,Urine Trace mg/dL (Neg-Trace); Specific Gravity,Urine 1.023 (1.010-1.025); Urobilinogen,Urine Normal (Normal)
[2017-08-22 16:44] LABS: Troponin I < 0.03 ng/mL (< 0.04)
[2017-08-22 16:45] LABS: Bacteria,Urine None Seen per hpf (None-Few); Hyaline Casts,Urine Few per lpf (None-Few); Squamous Epithelial Cell,Urine Many per lpf (None-Few); WBC,Urine 0-3 per hpf (0-3)
[2017-08-22 16:56] LABS: BUN/Creatinine Ratio 34 (6-26); Blood Urea Nitrogen 38 mg/dL (8-23); Calcium 10.1 mg/dL (8.6-10.3); Carbon Dioxide 25 mEq/L (23-29); Chloride 102 mEq/L (98-107); Glucose 128 mg/dL (70-105); Osmolality,Calculated 281 (280-300); Potassium 5.5 mEq/L (3.5-5.1); Sodium 130 mEq/L (136-145); eGFR For African Americans 57 (> 60); eGFR For Non-African Americans 47 (> 60)
[2017-08-22 17:11] LABS: Platelet Estimate Normal (Normal)
[2017-08-22] MEDS: Acetaminophen IV 1,000 MG/100 ML INFUS..BTL IVPB SCH ×2 (18:31→23:36)
--- NOTE | 2017-08-22 19:22 | Event Note ---
<Brandon Lyman - Last Filed: 08/22/17 19:19> Date of Encounter: 08/22/17 Time of Encounter: 19:19 CT angiogram of the abdomen and pelvis was obtained to further delineate the extraperitoneal bleed and to evaluate for extravasation. There was a moderate increase in size of the extraperitoneal hematoma. He went from 10 x 7 cm to 13.8 x 2.9 cm. Hemoglobin has dropped from 13.1-11.2 since 4 AM. Blood pressures are labile. Last blood pressure was 92/56. I immediately called Dr. Metzger with interventional radiology. Within the case and my concerns and the abrupt drop in hemoglobin as well as extension of the extraperitoneal hematoma. Also explained that blood pressures are labile. Dr. Metzger stated that at this time, because there is no extravasation, that he would not recommend any type of therapy such as angio- embolization. We will obtain serial hematocrits and hemoglobins. We are also obtaining a PT, INR, aPTT. Family has been informed of this. Will recommend blood transfusion if patient's condition worsens. Abdomen/Pelvis CT 08/22/17 09:34 IMPRESSION: 1. New extraperitoneal bleed extending in the pelvis presumably spontaneous from the deep margin of the inferior aspect of the right rectus abdominus muscle. 2. Unchanged 4.6 x 5.3 cm infrarenal abdominal aorta aneurysm. Management recommendation is for vascular consultation as well as follow-up imaging every 6 months if intervention is not performed*. 3. Calcific atherosclerotic disease aorta. 4. Hiatal hernia. 5. Unchanged left basilar consolidation and left pleural effusion. This may be related to pneumonia. Underlying mass cannot be excluded. Critical results were called by Dr. Colton Jacobs to Nicolasa Bird on 08/22/2017 at 11:53. ____ *Managing Abdominal Aortic Aneurysms 2.6-2.9 cm: Every 5 years* 3.0-3.4 cm: Every 3 years. 3.5-3.9 cm: Every 1 year. 4.0-4.4 cm: Every 1 year. Recommend vascular consultation. 4.5-5.4 cm: Every 6 months. Recommend vascular consultation. Greater than or equal to 5.5 cm: Referral to vascular surgeon. *For abdominal aortas with maximum diameter of 2.6-2.9 cm meeting criteria for AAA (>50% of proximal normal segment). Reference: J Vasc Surg. 2008;50(4 Suppl):S2-49 D/ / Colton Jacobs / Colton Jacobs Interpreting Provider: Colton Jacobs Abdomen/Pelvis CTA 08/22/17 15:46 IMPRESSION: 1. Moderate increase in size of a large extraperitoneal hematoma in the pelvis, now measuring 13.8 x 10.9 cm, previously 10 x 7 cm when measured at a similar level. The hematoma is heterogeneous in appearance, which can be seen with ongoing bleeding. However, no active arterial extravasation is seen on this exam. 2. Stable small left pleural effusion with left lower lobe atelectasis and/or pneumonia. 3. Stable appearance of a multilobed infrarenal abdominal aortic aneurysm, measuring up to 5.0 x 4.7 cm on this exam. 4. Severe diffuse atherosclerosis. The proximal right superficial femoral artery appears to be occluded. RECOMMENDATIONS: Managing Abdominal Aortic Aneurysms 2.6-2.9 cm: Every 5 years* 3.0-3.4 cm: Every 3 years. 3.5-3.9 cm: Every 1 year. 4.0-4.4 cm: Every 1 year. Recommend vascular consultation. 4.5-5.4 cm: Every 6 months. Recommend vascular consultation. Greater than or equal to 5.5 cm: Referral to vascular surgeon. *For abdominal aortas with maximum diameter of 2.6-2.9 cm meeting criteria for AAA (>50% of proximal normal segment). Reference: J Vasc Surg. 2008;50(4 Suppl):S2-49 D/ / 08/22/2017 18:57:08 Abdullahi Braga MD / [facility] Interpreting Provider: Abdullahi Braga MD <Ducu,Marlon - Last Filed: 08/22/17 20:08> Date of Encounter: 08/22/17 I performed a [id number] diagnostic evaluation of this patient and my medical decision-making was reviewed with the Resident Physician, Dr Brandon Lyman. I agree with the documented findings, disposition and treatment plan as described except to the extent set forth below. Physical exam: Gen: NAD, ill-appearing Heart: RRR, S1S2, no murmurs Lungs: CTABL Abdomen: Tender to palpation in the lower abdomen. Firm with voluntary guarding. No generalized peritoneal signs. Plan: Patient is borderline hypotensive. Hemoglobin has dropped [address] of the abdomen and pelvis reveals increasing rectus sheath hematoma. Case was discussed with interventional radiology. They recommend conservative management. Supportive care. We will place central line due to hypotension, need for transfusion and frequent lab checks and possible need for pressors. Marlon Zuniga MD
[2017-08-22] MEDS ORDERED: 0.9 % Sodium Chloride 1,000 ML ONE (19:51)
[2017-08-22] MEDS ORDERED: *HR* FentaNYL (PF) 100 MCG/2 ML VIAL ONE (19:57)
--- NOTE | 2017-08-22 20:54 | Event Note ---
<Brandon Lyman - Last Filed: 08/22/17 20:49> Date of Encounter: 08/22/17 Time of Encounter: 19:45 Procedures: General Surgery - Central Line Placement Right IJ Consent obtained: verbal consent Time out performed: Yes Patient placed on monitor/pulse ox: Yes prep: mask, gown, gloves Central line prep: Chlorhexidine scrub, sterile drapes applied Local anesthesia used: Lidocaine 1% Amount of anesthesia used (mls): 4 Ultrasound used for placement: Yes Technique: Seldinger Central line lumen inserted: triple Post Procedure: sutured in place, good blood return, all ports aspirated, flushed, capped, sterile dressing applied, infection control done at entry site Post procedure x-ray: tip of catheter in good position Patient tolerated procedure: well, no complications Complications: none <Marlon Zuniga - Last Filed: 08/23/17 08:16> Date of Encounter: 08/22/17 A time-out was completed verifying correct patient, procedure, site, positioning , and special equipment at 19:40. The patient was placed in Trendelenburg position and the right side of the neck was prepped and draped in sterile fashion. 1% Lidocaine was used to infiltrate the surrounding skin area. The right IJ was visualized and cannulated under ultrasound guidance. A triple lumen catheter was introduced into the the right IJ using the Seldinger technique. The catheter was threaded smoothly over the guide wire and appropriate blood return was obtained. Each lumen of the catheter was evacuated of air and flushed with sterile saline. The catheter was then sutured in place to the skin and a sterile dressing applied. I was present at the bedside and available during the entire procedure. There were no immediate complications. The patient tolerated the procedure well. Blood loss was less than 5 mL.
[2017-08-22] MEDS ORDERED: *HR* OxyCODONE Immed Rel 5 MG TABLET PO PRN (21:43)
[2017-08-22 21:47] LABS: INR 1.2; Prothrombin Time 12.6 Seconds (9.4-12.1)
[2017-08-22 21:50] LABS: Activated Partial Thrombo Time 37.1 Seconds (26.0-36.0)
[2017-08-22 23:08] LABS: Hematocrit 29.4 % (35.3-44.9); Hemoglobin 9.7 g/dL (11.5-15.4)
[2017-08-23] MEDS: Ipratropium/Albuterol Neb 3 ML IH SCH ×3 (00:06→07:56)
[2017-08-23] MEDS: Acetylcysteine 10% 2 ML INHSOL IH SCH ×3 (00:06→07:56)
[2017-08-23 00:46] LABS: Hematocrit 28.6 % (35.3-44.9); Hemoglobin 9.6 g/dL (11.5-15.4)
[2017-08-23] MEDS ORDERED: *HR* FentaNYL (PF) 100 MCG/2 ML VIAL ONE (00:50)
[2017-08-23] MEDS ORDERED: *HR* FentaNYL (PF) 100 MCG/2 ML VIAL IVP ONE (00:55)
[2017-08-23] MEDS: Ondansetron 4 MG/2 ML VIAL IVP SCH ×2 (03:59→08:25)
[2017-08-23] MEDS: Simethicone 80 MG TAB.CHEW PO PRN (03:59)
[2017-08-23 04:53] LABS: Basophils # 0.1 K/mcL (0.0-0.2); Basophils % 0.3 %; Hematocrit 28.3 % (35.3-44.9); Hemoglobin 9.3 g/dL (11.5-15.4); Immature Granulocytes % 7.4 % (0-4); Lymphocytes % 11.5 %; Mean Corpuscular HGB Conc 32.9 g/dL (31.6-35.5); Mean Corpuscular Hemoglobin 30.7 pg (28.0-33.3); Mean Corpuscular Volume 93.4 fL (83.0-100.0); Mean Platelet Volume 9.5 fL (9.4-12.4); Monocytes # 1.6 K/mcL (0.0-1.3); Monocytes % 6.6 %; Neutrophils # 18.3 K/mcL (1.6-8.9); Nucleated Red Blood Cells 0.1 /100 WBC (0); Platelet Count 233 K/mcL (140-400); Red Blood Count 3.03 M/mcL (3.82-4.97); Red Cell Distribution Width 14.1 % (11.5-14.5); Segmented Neutrophils % 74.2 %
[2017-08-23 04:57] LABS: Lymphocytes # 2.8 K/mcL (0.6-4.6)
[2017-08-23 05:04] LABS: Calcium 10.1 mg/dL (8.6-10.3); Potassium 4.9 mEq/L (3.5-5.1)
[2017-08-23 05:20] LABS: Platelet Estimate Normal (Normal); Reactive Lymphocytes Present (Not Present)
[2017-08-23] MEDS: Budesonide/Formoterol 80/4.5 MDI IH SCH (07:56)
[2017-08-23 07:57] VITALS: BP 106/61
[2017-08-23] MEDS: Nicotine 21 MG PATCH.TD24 TD SCH (08:25)
[2017-08-23] MEDS: Acetaminophen IV 1,000 MG/100 ML INFUS..BTL IVPB SCH (08:25)
[2017-08-23] MEDS: Sennosides/Docusate Sodium TABLET PO SCH (08:28)
[2017-08-23] MEDS: Famotidine 20 MG TABLET PO SCH (08:28)
[2017-08-23] MEDS: predniSONE 20 MG TABLET PO SCH (08:29)
[2017-08-23] MEDS: Cholecalciferol (D-3) 1,000 UNIT TABLET PO SCH (08:29)
[2017-08-23] MEDS ORDERED: 0.9 % Sodium Chloride 1,000 ML IVC SCH (08:30)
[2017-08-23] MEDS ORDERED: *HR* FentaNYL (PF) 100 MCG/2 ML VIAL IVP PRN (09:11)
[2017-08-23] MEDS ORDERED: 0.9 % Sodium Chloride 500 ML ONE (09:32)
[2017-08-23] MEDS ORDERED: D5% in Water 250 ML ONE (09:56)
[2017-08-23] MEDS ORDERED: *HR* EPINEPHrine 1 MG/10 ML SYRINGE IVP ONE (15:53)
[2017-08-23] MEDS ORDERED: *HR* Norepinephrine 4 MG/4 ML VIAL IVC ONE (15:53)
[2017-08-23] MEDS ORDERED: *HR* Rocuronium Bromide 50 MG/5 ML VIAL IVC ONE (15:53)
[2017-08-23] MEDS ORDERED: *HR* EPINEPHrine 30 MG/30 ML MDV IM ONE (15:53)
--- NOTE | 2017-08-23 18:57 | Event Note ---
<Jeremy Mckinley - Last Filed: 08/23/17 18:48> Date of Encounter: 08/23/17 Time of Encounter: 09:15 After initial evaluation of the patient this morning at 0845 during which time she appeared in some distress, but was hemodynamically stable, I was called to the room by the patient's RN because she was having decreased responsiveness. When I entered the room, she was sitting on the bedside commode and was not responding to verbal or physical stimuli as well as sternal rub, a rapid response was then called. She was transferred to the bed at which point she was found to not have a pulse and a Code Blue was activated. Chest compressions commenced immediately. When chest pads were connected to her, she was found to be in V. Fib and a single shock was administered. At this point her rhythm deteriorated into alternating episodes of PEA and asystole. Chest compressions were continued thoughout and she was given Epinephrine in 3 minute intervals as well as several amps of bicarbonate and calcium. She was intubated and there was no difficulty in ventilation. After 30 minutes of the code, she began to have brief episodes of ROSC for several seconds before returning to asystole. After continuing ACLS for 1 hour, no pulse could be returned and she was found to pronounced at 1020. <Marlon Zuniga - Last Filed: 08/24/17 18:47> Date of Encounter: 08/23/17 This is a late addendum and signature for date of service 08/23/2017 I performed a [id number] diagnostic evaluation of this patient and my medical decision-making was reviewed with the Resident Physician, Dr Noman Mckinley. I agree with the documented findings, disposition and treatment plan as described except to the extent set forth below. I was present at bedside during the entire resuscitation. The patient's initial rhythm was pulseless V. tach. She received 1 shock and rhythm deteriorated to PEA alternating with asystole and bradycardia. Good quality chest compressions were performed throughout the resuscitation efforts. She was intubated with the use of video gleidoscope. She received multiple doses of epinephrine 3 minute intervals, IV sodium bicarbonate and IV calcium chloride through a right IJ central line. In spite of extensive resuscitation efforts she did not have a sustained return of spontaneous circulation and was pronounced at 10:20 AM. Marlon Zuniga MD
--- NOTE | 2017-08-23 19:00 | Death Note ---
<Jeremy Mckinley - Last Filed: 08/23/17 18:58> Discharge Sum: Summary - Date and Time Date of admission: 08/11/17 22:16 Date of : 08/23/17 Time of : 10:20 - Summary Details: Mrs. Angulo was an 82-year-old woman with prior medical history of CHF, AAA, COPD, CAD, hypertension, and hyperlipidemia who presents to [place] on 08/11/17 with dyspnea and productive cough. She was found to have an acute exacerbation of COPD from likely tracheobronchitis. She was treated with IV steroids, antibiotics, and breathing treatments for several days. During this time she had slow improvement but her wheezing eventually resolved and her breathing stabilized. Unfortunately during this timeframe she also had developed some vague lower abdominal discomfort. She underwent a CT scan on 08/14 that showed a significant amount of stool in her colon. The CT scan also showed interval enlargement of her AAA. After trying multiple laxatives and enemas, relief of her constipation was achieved. Although she had mild improvement in her symptoms, the pain worsened. She was seen by vascular surgery who decided the AAA could wait to be dealt with as outpatient. A repeat CT examination of her abdomen 08/22/17 showed a hematoma had developed in the extraperitoneal space. A follow-up CT showed worsening of the hematoma. The timeframe of 08/21/17- she had a 3 point drop in her hemoglobin. A rapid response was called on because of decreased responsiveness and the patient was moved to the stepdown unit of 08/23/17 patient appeared in significant distress, but vitals remained stable. Unfortunately, less than 30 minutes after this initial assessmentshe was found to have no pulse and a CODE BLUE was initiated. After ACLS was performed for 1 hour, Mrs. Angulo was pronounced . - Additional Data Confirmation of as documented by pronouncing clinician: no pulse, no respirations, no heart sounds, pupils fixed and dilated Family: at bedside Attending/PCP notified?: Yes Attending physician: Marlon Zuniga MD Was code activated?: Yes Autopsy requested?: No credit union field examiner notified?: Yes Organ bank notified?: Yes Advance directives: No Hospice patient?: No Discharge Sum: Diag - PCOD Probable Cause of : Cardiac arrest Discharge Sum: Prov - Provider Primary care physician: Pranav Harris DO Admitting clinician: Pascual Rodrigez Attending physician on admission: Parviz Quintero Consults: 08/13/17 02:00 Consult to Staff Midwife/Apprenticeship Director [CONS] Routine Reason for SW Consult: Home oxygen needs 08/14/17 13:42 Consult to Pulmonology [CONS] Routine Consulting Provider: [facility] [place] Reason for Consult: Recurrent episodes of COPD exacerbation. Family is requesting that she be evaluated by a co director. Call Completed: Yes 08/16/17 08:36 PT [Consult to Physical Therapy] [CONS] Routine Comment: Evaluate, develop and implement POC Reason for Consult: Weakness, pain Does patient have active BEDREST order?: No Is patient medically & hemodynamically stable?: Yes Patient assessed for mobility or mobilized this visit?: Yes 08/16/17 08:37 OT [Consult to Occupational Therapy] [CONS] Routine Comment: Evaluate, develop and implement POC Reason for Consult: Weakness, pain Does patient have active BEDREST order?: No Is patient medically & hemodynamically stable?: Yes Patient assessed for mobility or mobilized this visit?: Yes 08/17/17 16:43 Consult to Vascular Surgery [CONS] Routine Consulting Provider: [facility] [place] Reason for Consult: Enlarging AAA Time Notified: 14:30 Call Completed: Yes Pronouncing clinician: Mralon Zuniga <Marlon Zuniga - Last Filed: 08/24/17 18:55> Discharge Sum: Summary - Date and Time Date of admission: 08/11/17 22:16 - Additional Data Attending physician: Marlon Zuniga MD Discharge Sum: Prov - Provider Primary care physician: Pranav Harris DO Admitting clinician: Marlon Zuniga Consults: 08/13/17 02:00 Consult to Staff Midwife/Apprenticeship Director [CONS] Routine Reason for SW Consult: Home oxygen needs 08/14/17 13:42 Consult to Pulmonology [CONS] Routine Consulting Provider: [facility] [place] Reason for Consult: Recurrent episodes of COPD exacerbation. Family is requesting that she be evaluated by a co director. Call Completed: Yes 08/16/17 08:36 PT [Consult to Physical Therapy] [CONS] Routine Comment: Evaluate, develop and implement POC Reason for Consult: Weakness, pain Does patient have active BEDREST order?: No Is patient medically & hemodynamically stable?: Yes Patient assessed for mobility or mobilized this visit?: Yes 08/16/17 08:37 OT [Consult to Occupational Therapy] [CONS] Routine Comment: Evaluate, develop and implement POC Reason for Consult: Weakness, pain Does patient have active BEDREST order?: No Is patient medically & hemodynamically stable?: Yes Patient assessed for mobility or mobilized this visit?: Yes 08/17/17 16:43 Consult to Vascular Surgery [CONS] Routine Consulting Provider: [facility] [place] Reason for Consult: Enlarging AAA Time Notified: 14:30 Call Completed: Yes - Attending Attestation This is a late addendum and signature for date of service 08/23/2017 I performed a [id number] diagnostic evaluation of this patient and my medical decision-making was reviewed with the Resident Physician, Dr Noman Mckinley. I agree with the documented findings, disposition and treatment plan as described except to the extent set forth below. Patient initially presented to the hospital for shortness of breath and received treatment for COPD exacerbation. She had a known history of AAA. She developed abdominal pain which was attributed to severe constipation. She had several enemas which relieved the constipation however she continued to have lower abdominal pain. An abdominal CT done on 08/22/2017 showed the presence of an extraperitoneal right rectus sheath hematoma. I have personally discussed the case with general surgery and reviewed the images with the general surgeon on-call. He related to me that a surgical intervention is not indicated and most likely would not be beneficial in this case. I discussed the case with interventional radiology. We performed a CT angiogram of the abdomen which revealed increasing size of the extraperitoneal hematoma but no extravasation of contrast. I discussed the case with interventional radiology who advised me that a catheter directed angiogram with likely not be helpful in identifying the source of bleeding and less likely to be therapeutic. We treated the patient with supportive measures. We placed a central line with no complications on 08/22/2017. Patient received blood transfusion and her vital signs have remained stable until the morning of 08/23/2017 when she was found to be unresponsive while sitting on the toilet and soon thereafter she went into cardiac arrest with pulseless ventricular tachycardia. Resuscitation efforts were begun immediately however in spite of prolonged resuscitation she did not sustain spontaneous circulation and was pronounced on 2017 at 10:20 AM. Marlon Zuniga MD ,
--- NOTE | 2017-08-25 06:31 | Electrocardiograph Report ---
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
--- NOTE | 2017-08-25 12:26 | Electrocardiograph Report ---
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
== END 2017-08-23 10:20 | disposition expired | DRG 190 ==
LOC: 3BNU 19:22 → EMEROO 19:22 → SUATTDRO 22:16 → 3BNU 22:24 → 2NNU 08-22 16:54
PROVIDERS: ADMIT Hospitalist; ATTEND Internal Medicine